=== PATIENT | female | born 1965 | race Caucasian/White ===

== ENCOUNTER 2023-05-19 09:55 | Emergency (ER) | payer OTHER, SELFPAY ==
[2023-05-19 09:59] VITALS: BP 160/97; PULSE 61; RESP 16; TEMP 36.6; O2SAT 98; BMI 21.9
[2023-05-19 10:03] VITALS: O2SAT 98
--- NOTE | 2023-05-19 10:06 | ECG_ITS ---
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
--- NOTE | 2023-05-19 10:06 | XR_ITS ---
The [address] [address] Patient Name: VEENA BUENO MRN: [id number] date: 1965 Sex: F Assigned Patient Location: ER Current Patient Location: ER Accession/Order Number: [id number] Exam Date: 05/19/2023 10:30 Report Date: 05/19/2023 10:45 At the request of: JULI MUKHERJEE Procedure: XR chest 1V EXAM: XR chest 1V HISTORY: CP, cough COMPARISON: CT PE chest study dated 08/25/2009 TECHNIQUE: AP view of the chest was obtained with portable technique at 10:27 AM. FINDINGS: Heart and mediastinal contours are unremarkable in appearance. No acute infiltrate or consolidations are seen. No obvious pneumothorax. Mild apical pleural thickening bilaterally. Postoperative sutures at the right apical level. Bony structures appear grossly intact. XR/XR chest 1V IMPRESSION: No acute process seen in the chest. Electronically authenticated by: NATALI ANDRE Date: 05/19/2023 10:45
--- NOTE | 2023-05-19 10:07 | ED_ITS ---
HPI - Chest Pain General Chief Complaint: Chest Pain Stated Complaint: UPPER EXTREMITY PAIN L SIDE Time Seen by Provider: 05/19/23 09:58 Source: patient Mode of arrival: walk-in Limitations: no limitations History of Present Illness HPI narrative: 58-year-old female presents for pain in the left lateral chest area. She has had this for 3 days. She has been sick for about 6 weeks and has been coughing and coughing up some thick phlegm. No hemoptysis or injury or unusual activity. Certain positions make it worse. Related Data Home Medications Medication Instructions Recorded Confirmed metoprolol succinate 50 mg 50 mg PO DAILY 05/19/23 05/19/23 tablet,extended release 24 hr Previous Rx's Medication Instructions Recorded acetaminophen 300 mg-codeine 30 mg 1 tab PO Q6H PRN pain 5 days #20 05/19/23 tablet tabs ibuprofen 800 mg tablet 800 mg PO Q8H PRN pain #20 tabs 05/19/23 Allergies Allergy/AdvReac Type Severity Reaction Status Date / Time No Known Drug Allergies Allergy Verified 05/19/23 09:59 Review of Systems ROS Narrative A ten point review of systems is negative except as noted above. PFSH PFSH Social History Smoking status: Heavy tobacco smoker Exam Narrative Exam Narrative: Nurses note and vital signs reviewed and patient is not hypoxic. General: The patient appears well and in no apparent distress. Patient is resting comfortably on cart. Skin: Warm, dry, no pallor noted. There is no rash noted. Head: Normocephalic, atraumatic Eye: Normal conjunctiva, no drainage Ears, Nose, Mouth, and Throat: oral mucosa is moist. Nares patent. Cardiovascular: Regular Rate and Rhythm Respiratory: Patient is in no distress, no accessory muscle use, lungs are clear to auscultation, breath sounds are equal without rhonchi. She has palpable tenderness to the lateral chest just below the axilla. There is no crepitus present. Back: non-tender GI: Normal bowel sounds, no tenderness to palpation, no masses appreciated. No rebound, guarding, or rigidity noted. Musculoskeletal: The patient has no evidence of calf tenderness, no pitting edema, symmetrical pulses noted bilaterally Neurological: A&O x4, normal speech Psychiatric: Cooperative Constitutional Vital Signs, click to edit/add: Last Vital Signs Temp 97.9 F 05/19/23 09:59 Pulse 49 L 05/19/23 10:56 Resp 14 05/19/23 10:56 BP 151/86 H 05/19/23 10:56 Pulse Ox 98 05/19/23 10:56 O2 Del Method Room Air 05/19/23 10:03 Course Vital Signs Vital signs: Vital Signs Temperature 97.9 F 05/19/23 09:59 Pulse Rate 61 05/19/23 09:59 Respiratory Rate 16 05/19/23 09:59 Blood Pressure 160/97 H 05/19/23 09:59 Pulse Oximetry 98 05/19/23 09:59 Temperature 97.9 F 05/19/23 09:59 Pulse Rate 49 L 05/19/23 10:56 Respiratory Rate 14 05/19/23 10:56 Blood Pressure 151/86 H 05/19/23 10:56 Pulse Oximetry 98 05/19/23 10:56 Oxygen Delivery Method Room Air 05/19/23 10:03 MDM - Chest Pain MDM Narrative Medical decision making narrative: Her workup is negative. No evidence of PE, heart disease, pneumothorax, pleural effusion, pneumonia. She will be treated symptomatically. Treatment diagnosis and follow-up were discussed with patient. Differential Diagnosis Differential diagnosis: Likely fracture of rib, pneumothorax, unstable angina pectoris, atypical chest pain, st elevation myocardial infarction, costochondritis, chest pain and other (Pleural effusion, pneumonia) Lab Data Attestation: I reviewed the patient's lab results. Labs: Lab Results 05/19/23 Range/Units 10:20 WBC 8.1 (4.0-11.0) 10^3/uL RBC 4.78 (4.20-5.40) 10^6/uL Hgb 13.5 (12.0-16.0) g/dL Hct 41.3 (36.0-48.0) % MCV 86.4 (81.0-99.0) fL MCH 28.2 (26.7-34.0) pg MCHC 32.7 (29.9-35.2) g/dL RDW 12.2 (11.0-15.0) % Plt Count 244 (150-450) 10^3/uL MPV 10.7 (9.5-13.5) fL Neut % (Auto) 67.9 (43.0-75.0) % Lymph % (Auto) 22.9 (20.5-60.0) % [place] % (Auto) 5.6 (1.7-12.0) % Eos % (Auto) 2.2 (0.9-7.0) % Baso % (Auto) 1.0 (0.2-2.0) % Neut # (Auto) 5.5 (1.4-6.5) 10^3/uL Lymph # (Auto) 1.9 (1.2-3.8) 10^3/uL [place] # (Auto) 0.5 (0.3-0.8) 10^3/uL Eos # (Auto) 0.2 (0.0-0.7) 10^3/uL Baso # (Auto) 0.1 (0.0-0.1) 10^3/uL Abs Immat Gran (auto) 0.03 (0.00-0.03) 10^3/uL Imm/Tot Granulo (auto) 0.4 (0.0-0.5) % D-Dimer 0.32 (<=0.59) mg/L FEU Sodium 141 (136-145) mmol/L Potassium 4.2 (3.5-5.1) mmol/L Chloride 106 (98-107) mmol/L Carbon Dioxide 27.1 (21.0-32.0) mmol/L Anion Gap 12.1 BUN 13.0 (7.0-18.0) mg/dL Creatinine 0.91 (0.55-1.02) mg/dL Est GFR ( Amer) >60 (>=60) Est GFR (Non-Af Amer) >60 (>=60) BUN/Creatinine Ratio 14.3 Glucose 109 H (74-106) mg/dL Calcium 8.8 (8.5-10.1) mg/dL Troponin I High Sens 39.2 (4.0-51.3) pg/mL Influenza Type A Ag Negative Influenza Type B Ag Negative SARS-CoV-2 Ag (CV2AG) Negative (NEGATIVE) Imaging Data Chest x-ray: Radiologist's impression: ITS Impressions Chest X-Ray 05/19/23 10:06 IMPRESSION: No acute process seen in the chest. Electronically authenticated by: NATALI ANDRE Date: 05/19/2023 10:45 ECG Data Attestation: I personally reviewed and interpreted this ECG as follows: (EKG on my interpretation shows normal sinus rhythm without acute change and a rate of 55.) Heart Score History: Slightly/Non-Suspicious ECG: Normal Age: >45-<65 years Risk Factors: No Risk Factors Troponin: <Normal Limit Total Heart Score Recommendations & Risks:: 1 Discharge Plan Discharge Chief Complaint: Chest Pain Clinical Impression: Chest wall pain Patient Disposition: Home, Self-Care Time of Disposition Decision: 11:45 Condition: Good Mode of Transportation: Private Vehicle Prescriptions / Home Meds: New acetaminophen-codeine 300-30 mg tablet 1 tab PO Q6H PRN (Reason: pain) 5 Days Qty: 20 0RF ibuprofen 800 mg tablet 800 mg PO Q8H PRN (Reason: pain) Qty: 20 0RF No Action metoprolol succinate 50 mg tablet extended release 24 hr 50 mg PO DAILY Instructions: Chest Wall Pain (ED) Stand Alone Forms: Portal Instructions Referrals: NAVDEEP GERARD [Primary Care Provider] - 1 week
[2023-05-19 10:39] LABS: Basophils Absolute Auto 0.1 10^3/uL (0.0-0.1); Eosinophils Absolute Auto 0.2 10^3/uL (0.0-0.7); Eosinophils Percent Auto 2.2 % (0.9-7.0); Hematocrit 41.3 % (36.0-48.0); Hemoglobin 13.5 g/dL (12.0-16.0); Immature Granulocytes Abs Auto 0.03 10^3/uL (0.00-0.03); Immature Granulocytes Pct Auto 0.4 % (0.0-0.5); Lymphocytes Absolute Auto 1.9 10^3/uL (1.2-3.8); Lymphocytes Percent Auto 22.9 % (20.5-60.0); Mean Corpuscular HGB Conc 32.7 g/dL (29.9-35.2); Mean Corpuscular Hemoglobin 28.2 pg (26.7-34.0); Mean Corpuscular Volume 86.4 fL (81.0-99.0); Mean Platelet Volume 10.7 fL (9.5-13.5); Monocytes Absolute Auto 0.5 10^3/uL (0.3-0.8); Monocytes Percent Auto 5.6 % (1.7-12.0); Neutrophils Absolute Auto 5.5 10^3/uL (1.4-6.5); Neutrophils Percent Auto 67.9 % (43.0-75.0); Platelet Count 244 10^3/uL (150-450); Red Blood Count 4.78 10^6/uL (4.20-5.40); Red Cell Distribution Width 12.2 % (11.0-15.0); White Blood Count 8.1 10^3/uL (4.0-11.0)
[2023-05-19 10:43] LABS: Influenza Virus A Antigen Negative; Influenza Virus B Antigen Negative; Internal Control Within Normal Limits
[2023-05-19 10:44] LABS: SARS-CoV-2 Ag NEGATIVE (NEGATIVE)
[2023-05-19 10:55] LABS: D Dimer 0.32 mg/L FEU (<=0.59)
[2023-05-19 10:56] VITALS: BP 151/86; PULSE 49; RESP 14; O2SAT 98
[2023-05-19 11:16] LABS: Anion Gap 12.1; BUN Creatinine Ratio 14.3; Calcium 8.8 mg/dL (8.5-10.1); Carbon Dioxide 27.1 mmol/L (21.0-32.0); Chloride 106 mmol/L (98-107); Estimated GFR (African America >60 (>=60); Estimated GFR (Non-African Ame >60 (>=60); Glucose 109 mg/dL (74-106); Potassium 4.2 mmol/L (3.5-5.1); Sodium 141 mmol/L (136-145); Troponin I High Sensitivity 39.2 pg/mL (4.0-51.3)
[2023-05-19] MEDS: KETOROLAC TROMETHAMINE 60 MG/2 ML VIAL IM (11:42)
== END 2023-05-19 11:57 | disposition home or self-care (01) ==
PROVIDERS: Emergency Provider Emergency Medicine; PCP Family Medicine
DX: R07.89 Other chest pain (principal); F17.210 Nicotine dependence, cigarettes, uncomplicated; Z20.822 Contact with and (suspected) exposure to COVID-19
CPT/HCPCS: 36415; 71045; 80048; 84484; 85025; 85378; 87804; 87811; 93005; 96372; 99285; J1885

== ENCOUNTER 2024-04-23 13:22 | Emergency (ER) | payer OTHER, SELFPAY ==
[2024-04-23 13:34] VITALS: BP 155/82; PULSE 60; TEMP 36.9; O2SAT 99; BMI 20.3
--- OUTSIDE RECORDS SUMMARY | 2024-04-23 13:42 | XMS_ITS | CCD ---
Author Organization [facility] Care Team Providers Care Jewel Staker Name Role Phone KIRNUS, DINORA Unavailable Unavailable NO FAMILY DOCTOR, DO NOT USE Unavailable Zuleika vailable KIRNUS, DINORA Unavailable Unavailable NO FAMILY DOCTOR, DO NOT USE Unavailable Zuleika vailable Jasmin Zayas Unavailable Unavailable Jasmin Zayas Unavailable Unavailable FURLONG, DR JHON Christopher Attending Unavailable FURLONG, DR JHON Christopher Consulting Unavailable FURLONG, DR JHON Christopher Primary Care Unavailable FURLONG, DR JHON Christopher Admitting Unavailable JHON ROSAS Attending Unavailab le NAELLOJHON HERRON Primary Care Unavailab Araceli Rolle Unavailable Cindy Avila Unavailable Jhon Rosas DO Primary Care Provider SHARA STAPLETON Attending Unavailable JHON ROSAS Referring Unavailable JHON ROSAS Primary Care Unavailable SHAYLA OH Attending Unavailable JHON ROSAS Referring Unavailable JHON ROSAS Primary Care Unavailable Medications Current Medications Medication Drug Class(es) Dates Sig (Normalized) Sig (Original) Cortisporin Otic 1%-0.35%-1000 units/ml (1 source) Start: 1 Cortisporin Otic 1%-0.35%-1000 units/ml 3 drops right ear tid for 7 days Jan, Active hydroCHLOROthiazide (2 sources) Thiazide Diuretic hydroCHLOROthiazide Active ibuprofen 800 mg oral tablet (6 sources) Nonsteroidal Anti-inflammator y Drug Start: 4 take 1 tablet by mouth every eight hours for pain ibuprofen (MOTRIN) 800 mg tablet take 1 tablet by mouth every 8 hours if needed for pain 05/19/2023 Active Lisinopril (2 sources) Angiotensin Converting Enzyme Inhibitor Lisinopril Active Meclizine (2 sources) Antiemetic Meclizine HCl Ac tive 24 hr metoprolol succinate 50 mg extended release oral tablet (7 sources) beta-Adrenergic Christiano Start: End: take 1 tablet by mouth once daily in the morning metoprolol succinate XL (TOPROL XL) 50 mg 24 hr tablet TAKE 1 TABLET BY MOUTH EVERY MORNING 30 tablet 03/29/2024 Active Start: 11-11-2022 take 1 tablet by tad th once daily metoprolol succinate XL (TOPROL XL) 50 mg 24 hr tablet take 1 tablet by mouth once daily 90 tablet 1 11/11/2022 Active ondansetron 4 mg disintegrating oral tablet (2 sources) Serotonin-3 Receptor Antagonist Start: 04-09-2024 take 1 tablet by mouth every eight hours as needed for nausea and vomiting ondansetron ODT (ZOFRAN ODT) 4 mg disintegrating tablet Dissolve 1 tablet (4 mg total) on tongue every 8 (eight) hours as needed for nausea or vomiting. 20 tablet 04/09/2024 Active oseltamivir 75 mg oral capsule (2 sources) Neuraminidase Inhibitor Start: 04-09-2024 End: 04-14-2024 take 1 capsule by mouth in the morning, then take 1 capsule by mouth at bedtime oseltamivir (TAMIFLU) 75 mg capsule Take 1 capsule (75 mg total) by mouth in the morning and 1 capsule (75 mg total) before bedtime. Do all this for 5 days. 10 capsule 04/09/2024 04/14/2024 Active Penicillin (1 source) Start: 10-05-2021 take 1 tablet by mouth every six hours Penicillin VK 500mg 500mg take 1 tablet Oral every 6 hours for 10 days Sep, Active valACYclovir 1000 mg oral tablet (2 sources) Herpesvirus Nucleoside Analog DNA Polymerase Inhibitor, Herpes Simplex Virus Nucleoside Analog DNA Polymerase Inhibitor, Herpes Zoster Virus Nucleoside Analog DNA Polymerase Inhibitor Start: 05-21-2023 End: 05-31-2023 take 1 tablet by mouth three times daily valACYclovir (VALTREX) 1000 mg tablet Take 1 tablet (1,000 mg total) by mouth 3 (three) times a day for 10 days. 30 tablet 0 05/21/2023 05/31/2023 Active Completed/Discontinued Medications Medication Drug Class(es) Dates Sig (Normalized) Sig (Original) acetaminophen 300 mg / codeine phosphate 30 mg oral tablet (5 sources) Opioid Agonist Start: 05-19-2023 End: 04-09-2024 take 1 tablet by mouth every six hours for pain acetaminophen-cod eine (TYLENOL #3) 300-30 mg per tablet take 1 tablet by mouth every 6 hours if needed for pain for 5 days 05/19/2023 04/09/2024 Discontinued (Therapy completed) famotidine 20 mg oral tablet (5 sources) Histamine-2 Receptor Antagonist Start: 08-08-2022 End: 04-09-2024 take 1 tablet by mouth in the morning famotidine (PEPCID) 20 mg tablet take 1 tablet by mouth IN THE MORNING and 1 tablet BEFORE BEDTIME 60 tablet 1 08/08/2022 04/09/2024 Discontinued (Therapy completed) fluticasone propionate 0.05 mg/actuat metered dose nasal spray (6 sources) Corticosteroid Start: 06-13-2022 End: 04-09-2024 take 1 spray(s) nasal route in the morning fluticasone propionate (FLONASE) 50 mcg/actuation nasal spray Administer 1 spray into each nostril in the morning. 9.9 mL 1 06/13/2022 04/09/2024 Discontinued (Therapy completed) Start: 02-09-2021 take 2 spray(s) nasa l route once daily FLONASE 50 mcg 2 sprays nasally qd Jan, Active predniSONE 20 mg oral tablet (6 sources) Start: 05-21-2023 End: 04-09-2024 predniSONE (DELTASONE) 20 mg tablet Use twice daily for 5 days and then once daily for 5 days 15 tablet 05/21/2023 04/09/2024 Discontinued (Therapy completed) Start: 02-09-2021 take 1 tablet by tad th every twelve hours predniSONE 20 MG 1 tablet Orally bid for 5 day(s) Jan, Active Problems Active Problems Problem Classification Problem Date Documented Date Episodic/Chronic Essential hypertension (6 sources) Hypertensive disorder; Translations: [Essential (primary) hypertension] 08-29-2022 Chronic Essential hypertension (1 source) Essential hypertension Onset: 01-15-2017 Fever of unknown origin (2 sources) Fever; Translations: [Fever, unspecified] Onset: 04-09-2024 04-09-2024 Episodic Influenza (2 sources) Influenza due to Influenza A virus; Translations: [Influenza due to other identified influenza virus with other respiratory manifestations] Onset: 04-09-2024 04-09-2024 Episodic Joint disorders and dislocations; trauma-related (6 sources) Chondromalacia of patella; Translations: [Chondromalacia patellae, unspecified knee] Onset: 06-27-2010 05-02-2022 Chronic Other screening for suspected conditions (not mental disorders or infectious disease) (1 source) Patient encounter status; Translations: [Encounter for screening mammogram for malignant neoplasm of breast] 04-12-2024 Episodic Other upper respiratory infections (1 source) Acute upper respiratory infection, unspecified; Translations: [ACUTE UP RESPIRATORY INFECTION UNS] Onset: 04-25-2021 Episodic Substance-related disorders (8 sources) Smoker; Translations: [Nicotine dependence, unspecified, uncomplicated] Onset: 05-02-2022 05-02-2022 Chronic Unclassified (2 sources) Chest pain, unspecified / R07.9(ICD-9) Onset: 01-15-2017 Unclassified (1 source) Family hx of ischem heart dis and oth dis of the circ sys / Z82.49(ICD-9) Onset: 12-18-2016 Unclassified (1 source) Nicotine dependence, unspecified, uncomplicated / F17.200(ICD-9) Onset: 12-18-2016 Unclassified (2 sources) CONTACT W/AND (SUSP) EXPOS COVID-19; Translations: [CONTACT W/AND (SUSP) EXPOS COVID-19] Onset: 04-25-2021 Unclassified (1 source) Sinus Problem Onset: 04-09-2024 Viral infection (1 source) COVID-19; Translations: [COVID-19] Onset: 04-25-2021 Past or Other Problems Problem Classification Problem Date Documented Date Episodic/Chronic Disorders of teeth and jaw (1 source) Periapical abscess without sinus Onset: 10-05-2021 Resolved: 10-05-2021 Episodic Joint disorders and dislocations; trauma-related (6 sources) Tear of lateral meniscus of knee; Translations: [Other tear of lateral meniscus, current injury, unspecified knee, initial encounter] Onset: 06-27-2010 05-02-2022 Episodic Mood disorders (6 sources) Mood disorders Onset: 05-21-2023 Resolved: 04-09-2024 05-21-2023 Nonspecific chest pain (4 sources) Chest pain, unspecified; Translations: [Chest wall pain] Onset: 01-15-2017 05-21-2023 Episodic Other connective tissue disease (6 sources) Patellar tendonitis; Translations: [Patellar tendinitis, unspecified knee] Onset: 06-13-2010 05-02-2022 Episodic Other ear and sense organ disorders (1 source) Unspecified acute noninfective otitis externa, right ear; Translations: [Acute otitis externa of right ear, unspecified type H60.501] Onset: 02-09-2021 Resolved: 02-09-2021 Episodic Otitis media and related conditions (1 source) Unspecified nonsuppurative otitis media, right ear; Translations: [Right otitis media with effusion H65.91] Onset: 02-09-2021 Resolved: 02-09-2021 Episodic Unclassified (1 source) CONTACT W/AND (SUSP) EXPOS COVID-19; Translations: [CONTACT W/AND (SUSP) EXPOS COVID-19] Onset: 04-19-2021 Unclassified (6 sources) Onset: 06-07-2022 06-07-2022 Viral infection (2 sources) Herpes zoster with complication; Translations: [Zoster with other complications] Onset: 05-21-2023 05-21-2023 Episodic Results Test Name Value Interpretation Reference Range Facility POCT Influenza A/Influenza B /SARS-COV-2 Veritor[facility] 04-09-2024 External Poct Influenza A Antigen Positive [facility] External Poct Influenza B Antigen Negative [facility] SARS-CoV-2 (COVID-19) Ag IA.rapid Ql (Resp) Negative [facility] COMPREHENSIVE METABOLIC PANE Seven 07-13-2021 Albumin [Mass/Vol] 4.5 g/dL Normal 3.6-5.1 [facility] Comment on above: Performed By: #### 1 3829, 0032 #### [facility] [address], [address] [place] [address] Fan Mail Clerk: Clarence Burnett MD Albumin/Globulin [Mass ratio] 1.8 {ratio} Normal 1.0-2.5 [facility] Comment on above: Performed By: #### 1 0231, 7600 #### [facility] of [place] [address] Fan Mail Clerk: Clarence Burnett MD ALP [Catalytic activity/Vol] 96 U/L Normal 37-153 [facility] Comment on above: Performed By: #### 1 0231, 7600 #### [facility] of [place] [address] Fan Mail Clerk: Clarence Burnett MD ALT [Catalytic activity/Vol] 9 U/L Normal 6-29 [facility] Comment on above: Performed By: #### 1 023, 7600 #### [facility] of [place] [address] Fan Mail Clerk: Clarence Burnett MD AST [Catalytic activity/Vol] 12 U/L Normal 10-35 [facility] Comment on above: Performed By: #### 1 023, 7600 #### [facility] of [place] [address] Fan Mail Clerk: Clarence Burnett MD Bilirubin [Mass/Vol] 0.2 mg/dL Normal 0.2-1.2 [facility] Comment on above: Performed By: #### 1 0231, 7600 #### [facility] [place] [address] Fan Mail Clerk: Clarence Burnett MD BUN/CREATININE RATIO NOT APPLICABLE Normal 6-22 [facility] Comment on above: Performed By: #### 1 0231, 7600 #### [facility] [place] [address] Fan Mail Clerk: Clarence Burnett MD Calcium [Mass/Vol] 9.6 mg/dL Normal 8.6-10.4 [facility] Comment on above: Performed By: #### 1 0231, 7600 #### [facility] of [address], [address] [place] [address] Fan Mail Clerk: Clarence Burnett MD Chloride [Moles/Vol] 99 mmol/L Normal 98-110 [facility] Comment on above: Performed By: #### 1 023, 7600 #### [facility] [address], [address] [place] [address] Fan Mail Clerk: Clarence Burnett MD CO2 [Moles/Vol] 33 mmol/L High 20-32 [facility] Comment on above: Performed By: #### 1 023, 7600 #### [facility] [place] [address] Fan Mail Clerk: Clarence Burnett MD Creatinine [Mass/Vol] 0.76 mg/dL Normal 0.50-1.05 [facility] Comment on above: Result Comment: For patients >49 years of age, the reference limit for Creatinine is approximately 13% higher for people identified as -Albanian. Performed By: #### 1 230, 7600 #### [facility] of [address], [address] [place] [address] Fan Mail Clerk: Clarence Burnett MD eGFR NON-AFR. COSTA RICAN 88 mL/min/1.73m2 Normal > OR = 60 [facility] Comment on above: Performed By: #### 1 230, 7600 #### [facility] [place] [address] Fan Mail Clerk: Clarence Burnett MD GFR/1.73 sq M.predicted among blacks MDRD (S/P/Bld) [Vol rate/Area] 102 mL/min/{1.73_m2} Normal > OR = 60 [facility] Comment on above: Performed By: #### 1 023, 7600 #### [facility] [place] [address] Fan Mail Clerk: Clarence Burnett MD Globulin (S) [Mass/Vol] 2.5 g/dL Normal 1.9-3.7 [facility] Comment on above: Performed By: #### 1 023, 7600 #### [facility] of [address], [address] [place] [address] Fan Mail Clerk: Clarence Burnett MD Glucose [Mass/Vol] 77 mg/dL Normal 65-139 [facility] Comment on above: Result Comment: Non-fasting reference interval Performed By: #### 1 0231, 7600 #### [facility] of [address], [address] [place] [address] Fan Mail Clerk: Clarence Burnett MD Potassium [Moles/Vol] 3.2 mmol/L Low 3.5-5.3 [facility] Comment on above: Performed By: #### 1 0231, 7600 #### [facility] of [place] [address] Fan Mail Clerk: Clarence Burnett MD Protein [Mass/Vol] 7.0 g/dL Normal 6.1-8.1 [facility] Comment on above: Performed By: #### 1 023, 7600 #### [facility] of [place] [address] Fan Mail Clerk: Clarence Burnett MD Sodium [Moles/Vol] 138 mmol/L Normal 135-146 [facility] Comment on above: Performed By: #### 1 0231, 7600 #### [facility] of [place] [address] Fan Mail Clerk: Clarence Burnett MD Urea nitrogen [Mass/Vol] 16 mg/dL Normal 7-25 [facility] Comment on above: Performed By: #### 1 0231, 7600 #### [facility] of [place] [address] Fan Mail Clerk: Clarence Burnett MD LIPID PANEL, [facility] Cholesterol [Mass/Vol] 226 mg/dL High <200 [facility] Comment on above: Order Comment: FASTI NG:NO FASTING: NO Performed By: #### 1 0231, 7600 #### [facility] of [place] [address] Fan Mail Clerk: Clarence Burnett MD Cholesterol in HDL [Mass/Vol] 52 mg/dL Normal > OR = 50 [facility] Comment on above: Order Comment: FASTI NG:NO FASTING: NO Performed By: #### 1 0231, 7600 #### [facility] [address], [address] [place] [address] Fan Mail Clerk: Clarence Burnett MD Cholesterol in LDL [Mass/Vol] 123 mg/dL High [facility] Comment on above: Order Comment: FASTI NG:NO FASTING: NO Result Comment: Refe rence range: <100 Desirable range <100 mg/dL for primary prevention; <70 mg/dL for patients with CHD or diabetic patients with > or = 2 CHD risk factors. LDL-C is now calculated using the Saba calculation, which is a validated novel method providing better accuracy than the Friedewald equation in the estimation of LDL-C. Suman TYSON et al. AMADO. 2013;310(19): 1023-4945 (http://education.[employer].Daily Dealy/faq/CBS463) Performed By: #### 1 023, 0 #### [facility] [address], [address] [place] [address] Fan Mail Clerk: Clarence Burnett MD Cholesterol.total/ Cholesterol in HDL [Mass ratio] 4.3 {ratio} Normal <5.0 [facility] Comment on above: Order Comment: FASTI NG:NO FASTING: NO Performed By: #### 1 023, 0 #### [facility] [address], [address] [place] [address] Fan Mail Clerk: Clarence Burnett MD NON HDL CHOLESTEROL 174 mg/dL (calc) High <130 [facility] Comment on above: Order Comment: FASTI NG:NO FASTING: NO Result Comment: For patients with diabetes plus 1 major ASCVD risk factor, treating to a non-HDL-C goal of <100 mg/dL (LDL-C of <70 mg/dL) is considered a therapeutic option. Performed By: #### 1 0231, 8670 #### [facility] [address], [address] [place] [address] Fan Mail Clerk: Clarence Burnett MD Triglyceride [Mass/Vol] 354 mg/dL High <150 [facility] Comment on above: Order Comment: FASTI NG:NO FASTING: NO Result Comment: If a non-fasting specimen was collected, consider repeat triglyceride testing on a fasting specimen if clinically indicated. Huber et al. J. of Clin. Lipidol. 2015;9:129-169. Performed By: #### 1 0231, 7600 #### [facility] [address] [place] [address], [address] [place] [address] Fan Mail Clerk: Clarence Burnett MD CoV-2 PCRon 06-01-2021 Employed in healthcare? Unknown Normal [facility] [place] Comment on above: Performed By: #### C [id number] #### [place] [address] Group care resident? Unknown Normal [facility] [place] Comment on above: Performed By: #### C [id number] #### [address] [address] In ICU? Unknown Normal [facility] [place] Comment on above: Performed By: #### C [id number] #### [address] [address] status? Unknown Normal [facility] Comment on above: Performed By: #### C [id number] #### [address] [address] SARS-CoV-2 (COVID-19) RNA HA+probe Ql (Unsp spec) Negative Normal Negative [facility] [place] Comment on above: Result Comment: The 2019 novel coronavirus SARS-CoV-2 target nucleic acids are not detected. The NALDO? SARS-CoV-2 Assay is a qualitative, multiplex, real-time PCR-based in vitro diagnostic test intended for the detection of SARS-CoV-2 nucleic acid in nasopharyngeal swab ([employer] TE[employer] TEACHER) specimens from individuals suspected of having COVID-19. The NALDO? SARS-CoV-2 Assay detects SARS-CoV-2 viral RNA from nasopharyngeal swab ([employer]DLE S[employer]OL TECHNOLOGY TEACHER) samples. SARS-CoV-2 RNA is generally detectable in MIDDLE [employer] TECHN[employer]Y TEACHER specimens during the acute phase of infection. Positive results are indicative of the presence of SARS-CoV-2 RNA; clinical correlation with patient history and other diagnostic information is necessary to determine patient infection status. Positive results do not rule out bacterial infection or co-infection with other viruses. The agent detected may not be the definite cause of disease. Laboratories within the [facility] and its territories are required to report all positive results to the appropriate public health authorities. Negative results do not preclude SARS-CoV-2 infection and should not be used as the sole basis for patient management decisions. Negative results must be combined with clinical observations, patient history, and epidemiological information. The [employer] SARS-CoV-2 Assay is intended for use on [employer] by trained clinical laboratory personnel who are specifically instructed and trained in in vitro diagnostic procedures. This [email or web address] SARS-CoV-2 Assay has been modified from the auxiliary equipment tender?s instructions to allow for nasal swab (anterior Nares) collection. An independent bridging study for nasal swab collection was performed by [facility], a [place] laboratory certified to perform high complexity testing EUA - In Vitro Diagnostic Use Under Emergency Use Authorization. This test has not been FDA cleared or approved. This test has been authorized by the FDA under an EUA for use by authorized laboratories. This test has been authorized only for the detection of nucleic acid from SARS-CoV-2, not for any other viruses or pathogens. This test is only authorized for the duration of the declaration that circumstances exist justifying the authorization of emergency use of in vitro diagnostic tests for detection and/or diagnosis of COVID-19 under Section 564(b) (1) of the Act, 21 U.S.C. ?360bb-3(b)(1), unless the authorization is terminated or revoked sooner. Fact sheet for Health Care Providers: https://www.fda.gov/media/490011/download Fact sheet for Patients: https://www.fda.gov/media/504012/download Performed By: #### C [id number] #### [address] [address] SARS-CoV-2 (COVID-19) RNA HA+probe Ql (Unsp spec) Unknown Normal [facility] [place] Comment on above: Performed By: #### C [id number] #### [facility] [address] [place] [address] Symptomatic as defined by CDC? Unknown Normal [facility] [place] Comment on above: Performed By: #### C [id number] #### [facility] [address] [place] [address] [facility]on SARS-CoV-2 (COVID-19) RNA HA+probe Ql (Unsp spec) Detected Critically abnormal NOT DETECTED [facility] Comment on above: Result Comment: This test is not yet approved or cleared by the [place] FDA. When there are no FDA-approved or cleared tests available, and other criteria are met, FDA can make tests available under an emergency access mechanism called an Emergency Use Authorization (EUA). The EUA for this test is supported by the [place] of Health and Human Service's (HHS's) declaration that circumstances exist to justify the emergency use of in vitro diagnostics for the detection and/or diagnosis of the virus that causes COVID-19. This EUA will remain in effect (meaning this test can be used) for the duration of the COVID-19 declaration justifying emergency of IVDs, unless it is terminated or revoked by FDA (after which the test may no longer be used). Performed By: #### [facility] #### [facility] [address] [place], [place] [address] Dr. Lashay Nesbitt TSH W/REFLEX TO FT4on 2020 TSH W/REFLEX TO FT4 1.12 mIU/L Normal [facility] Comment on above: Result Comment: Refe rence Range > or = 20 Years 0.40-4.50 Ranges First trimester 0.26-2.66 Second trimester 0.55-2.73 Third trimester 0.43-2.91 Performed By: #### 3 6127 #### [facility] [address], [address] [place] [address] Fan Mail Clerk: Clarence Burnett MD Creatinineon 01-15-2017 Creatinine 0.86 mg/dL Normal 0.50-1.05 [facility] Comment on above: Performed By: #### 1 [id number] ####[facility] [address] [place] [address] eGFR (MDRD) mL/min/{1.73_m2} Normal [facility] Comment on above: Result Comment: Inte rpretation for Chronic Kidney Disease:Stages 1&2 >60 Healthy or potential kidney damage.Mild decrease of GFR.Stage 3 30-59 Moderate decrease of GFR.Stage 4 15-29 Severe decrease of GFR.Stage 5 <15 Kidney failure or on dialysis. Performed By: #### 1 [id number] ####[facility] [address] [place] [address] Electrolyte Panelon 01-16-20 17 Anion gap 14 mmol/L Normal 10-20 [facility] Comment on above: Performed By: #### 1 [id number] ####[facility] [address] [place] [address] Bicarbonate (HCO3) 30 mmol/L Normal 21-32 [facility] Comment on above: Performed By: #### 1 [id number] ####[facility] [address] [place] [address] Chloride 98 mmol/L Normal 98-107 [facility] Comment on above: Performed By: #### 1 [id number] ####[facility] [address] [facility] [place] [address] Potassium molar conc 3.6 mmol/L Normal 3.5-5.1 [facility] Comment on above: Performed By: #### 1 [id number] ####[facility] [address] [place] [address] Sodium 138 mmol/L Normal 136-145 [facility] Comment on above: Performed By: #### 1 [id number] ####[facility] [address] [place] [address] Urea Nitrogenon 01-15-2017 Urea nitrogen 16 mg/dL Normal 6-23 [facility] are Comment on above: Performed By: #### 1 [id number] ####[facility] [address] [facility] [place] [address] Vital Signs Date Time Vital Sign Value Performing Clinician Facility 04-09-2024 11:52-0500 Body height 157.5 cm Shara Stapleton ASSISTANCE COORDINATOR-DESIGN ENGINEER [employer]GR[employer]URAL EQUIPMENT Work Phone: [facility] 04-09-2024 11:52-0500 Body mass index (BMI) [Ratio] 20.43 kg/m2 Shara Stapleton ASSISTANCE COORDINATOR-DESIGN ENGINEER [employer]QUIPMENT Work Phone: [facility] 04-09-2024 11:52-0500 Body temperature 99.7 [degF] Shara Stapleton ASSISTANCE COORDINATOR-DESIGN ENGINEER [employer] EQUIPMENT Work Phone: [facility] 04-09-2024 11:52-0500 Body weight 50.67 kg Shara Stapleton ASSISTANCE COORDINATOR-DESIGN ENGINEER [employer]QUIPMENT Work Phone: [facility] 04-09-2024 11:52-0500 Diastolic blood pressure 56 mm[Hg] Shara Stapleton ASSISTANCE COORDINATOR-DESIGN ENGINEER [employer] EQUIPMENT Work Phone: [facility] 04-09-2024 11:52-0500 Heart rate 74 /min Shara Stapleton APRN-DESIGN ENGINEER AGRICULTURAL EQUIPMENT Work Phone: [facility] 04-09-2024 11:52-0500 Respiratory rate 18 /min Shara Stapleton ASSISTANCE COORDINATOR-DESIGN ENGINEER AGRICULTURAL EQUIPMENT Work Phone: [facility] 04-09-2024 11:52-0500 SaO2% (BldA) [Mass fraction] 96 % Shara Stapleton ASSISTANCE COORDINATOR-DESIGN ENGINEER AGRICULTURAL EQUIPMENT Work Phone: [facility] 04-09-2024 11:52-0500 Systolic blood pressure 126 mm[Hg] Shara Stapleton ASSISTANCE COORDINATOR-DESIGN ENGINEER AGRICULTURAL EQUIPMENT Work Phone: [facility] 05-21-2023 12:02-0500 Body height 157.5 cm Shayla Ho APRN-MOLD MECHANIC Work Phone: [facility] 05-21-2023 12:02-0500 Body mass index (BMI) [Ratio] 21.62 kg/m2 Shayla Ho APRN-MOLD MECHANIC Work Phone: [facility] 05-21-2023 12:02-0500 Body temperature 98.01 [degF] Shayla GIVENSMOLD MECHANIC Work Phone: [facility] 05-21-2023 12:02-0500 Body weight 53.62 kg Shayla GIVENSMOLD MECHANIC Work Phone: [facility] 05-21-2023 12:02-0500 Diastolic blood pressure 70 mm[Hg] Shayla GIVENSMOLD MECHANIC Work Phone: [facility] 05-21-2023 12:02-0500 Heart rate 64 /min Shayla GIVENSMOLD MECHANIC Work Phone: [facility] 05-21-2023 12:02-0500 SaO2% (BldA) [Mass fraction] 96 % Shayla GIVENSMOLD MECHANIC Work Phone: [facility] 05-21-2023 12:02-0500 Systolic blood pressure 118 mm[Hg] Shayla GIVENSMOLD MECHANIC Work Phone: [facility] 10-05-2021 12:00-0400 Body height 157.48 cm Cindy Avila Other [facility] Other 10-05-2021 12:00-0400 Body mass index (BMI) [Ratio] 22.86 kg/m2 Cindy Avila Other [facility] Other 10-05-2021 12:00-0400 Body temperature 98.1 [degF] Cindy Avila Other [facility] Other 10-05-2021 12:00-0400 Body weight 56.7 kg Cindy Avila Other [facility] Other 10-05-2021 12:00-0400 Diastolic blood pressure 68 mm[Hg] Cindy Avila Other [facility] Other 10-05-2021 12:00-0400 Respiratory rate 18 /min Cindy Avila Other [facility] Other 10-05-2021 12:00-0400 SaO2% (BldA) [Mass fraction] 99 % Cindy Avila Other [facility] Other 10-05-2021 12:00-0400 Systolic blood pressure 103 mm[Hg] Cindy Avila Other [facility] Other 02-09-2021 11:15-0400 Body height 157.48 cm Araceli Cashmond Other [facility] Other 02-09-2021 11:15-0400 Body mass index (BMI) [Ratio] 21.03 kg/m2 Araceli Cashmond Other [facility] Other 02-09-2021 11:15-0400 Body temperature 97.2 [degF] Araceli Cashmond Other [facility] Other 02-09-2021 11:15-0400 Body weight 52.16 kg Araceli Mechelle Other [facility] Other 02-09-2021 11:15-0400 Respiratory rate 18 /min Araceli Cashmond Other [facility] Other 02-09-2021 11:15-0400 SaO2% (BldA) [Mass fraction] 97 % Araceli Mechelle Other [facility] Other Encounters Encounter Date Encounter Type Care Provider Facility Start: 04-12-2024 End: 04-12-2024 Orders Only Shara Stapleton ASSISTANCE COORDINATOR-DESIGN ENGINEER AGRICULTURAL EQUIPMENT [facility] Phone: [facility] Comment on above: Encounter for screen ing mammogram for malignant neoplasm of breast (Primary Dx) Start: 04-09-2024 End: 04-09-2024 Office outpatient visit 15 minutes [facility] ASSISTANCE COORDINATOR-DESIGN ENGINEER AGRICULTURAL EQUIPMENT Work Phone: [facility] Comment on above: Influenza A (Primary Dx); Fever, unspecified fever cause; Smoking Start: 04-09-2024 End: 04-09-2024 ambulatory [facility] Start: 03-24-2024 End: 03-29-2024 Refill Jhon Rosas DO Work Phone: [facility] Start: 06-02-2023 Orders Only Shayla Ho ASSISTANCE COORDINATOR-MOLD MECHANIC Work Phone: [facility] Start: 05-27-2023 Orders Only Shayla Ho ASSISTANCE COORDINATOR-MOLD MECHANIC Work Phone: [facility] Start: 05-21-2023 End: 05-21-2023 ambulatory SHAYLA GIVENS [facility] Start: 05-21-2023 End: 05-21-2023 Office outpatient visit 15 minutes Shayla Ho ASSISTANCE COORDINATOR-MOLD MECHANIC Work Phone: [facility] Comment on above: Chest wall pain (Lu shayla Dx); Herpes zoster with complication Start: 10-05-2021 End: 10-05-2021 ambulatory Cindy Avila Other [facility] Other Start: 10-05-2021 Office outpatient vi sit 15 minutes Cindy Avila [facility] Start: 06-01-2021 End: 06-02-2021 ambulatory JHON ROSAS Facility:[facility] Start: 04-19-2021 End: 04-19-[address] JHON ROSAS Facility: Start: 02-09-2021 Office outpatient ne w 20 minutes Araceli Mechelle [facility] Start: 01-15-2017 Ambulatory DINORA MCKOY Facility :[id number] Start: 01-15-2017 Ambulatory Jasmin Son [facility] Facil [id number] Start: 12-18-2016 Ambulatory DINORA MCKOY Facility :[id number] Start: 12-18-2016 Ambulatory Jasmin Son [facility] Facil [id number] Procedures Date Procedure Procedure Detail Performing Clinician Start: 04-09-2024 POCT INFLUENZA A/INF LUENZA B/SARS-COV-2 VERITOR Shara Stapleton ASSISTANCE COORDINATOR-DESIGN ENGINEER AGRICULTURAL EQUIPMENT Work Phone: Start: 04-09-2024 Adult depression scr eening assessment Shara Stapleton ASSISTANCE COORDINATOR-DESIGN ENGINEER AGRICULTURAL EQUIPMENT Work Phone: Start: 05-21-2023 Adult depression scr eening assessment Shayla Ho ASSISTANCE COORDINATOR-MOLD MECHANIC Work Phone: Start: 07-03-2022 Mammography Shayla Ho ASSISTANCE COORDINATOR-MOLD MECHANIC Work Phone: Plan of Treatment Date Care Activity Detail Author Start: 04-09-2025 Adult BMI Screening Adult BMI Screen ing [facility] Start: 04-09-2025 Depression Screening Depression Scre ening [facility] Start: 04-09-2025 Tobacco Screening Tobacco Screening [facility] Start: 05-21-2024 Adult BMI Screening Adult BMI Screen ing [facility] Start: 05-21-2024 Depression Screening Depression Scre ening [facility] Start: 05-21-2024 Tobacco Screening Tobacco Screening [facility] Start: 05-13-2024 End: 05-13-2024 Patient encounter procedure 05/13/2024 1:00 PM EST [facility] Visit [facility] [address] [place] [address] Shara Stapleton, ASSISTANCE COORDINATOR-DESIGN ENGINEER AGRICULTURAL EQUIPMENT [address] [place] [address] [facility] Start: 04-21-2024 End: 04-21-2024 Patient encounter procedure 04/21/2024 2:00 PM EST Appointment [facility] [address] [place] [id number] [facility] Start: 04-12-2024 End: 04-12-2025 DBT Breast - bilateral screening Mammography screening bilateral with CAD Imaging Routine Encounter for screening mammogram for malignant neoplasm of breast Expected: 04/12/2024, Expires: 04/12/2025 [facility] Work Phone: Comment on above: Expected: 04/12/2024 , Expires: 04/12/2025 Start: 12-15-2023 Tobacco Counseling Tobacco Counselin g [facility] Start: 12-14-2023 Influenza vaccination Influenza Vacc ine [facility] Start: 08-30-2023 Administration of varicella zoster vaccine Zoster (Shingles) Vaccine (1 of 2) [facility] Comment on above: Postponed from 02/03 (Patient Refused) Start: 08-30-2023 Adult BMI Screening Adult BMI Screen ing [facility] Start: 08-30-2023 Depression Screening Depression Scre ening [facility] Start: 08-30-2023 DTaP,Tdap and Td Vac cines (1 - Tdap) DTaP,Tdap and Td Vaccines (1 - Tdap) [facility] Comment on above: Postponed from 02/03 (Patient Refused) Start: 08-30-2023 Tobacco Screening Tobacco Screening [facility] Start: 08-13-2023 Screening for malign ant neoplasm of cervix Pap Smear [facility] Comment on above: Postponed from 02/03 (Not Indicated) Start: 07-04-2023 Screening for malign ant neoplasm of breast Mammogram [facility] Start: 12-13-2022 Influenza vaccination Influenza Vacc ine [facility] Start: 2015 Administration of varicella zoster vaccine Zoster (Shingles) Vaccine (1 of 2) [facility] Start: 2010 Screening for malign ant neoplasm of colon Colon Cancer Screening 3 Year Cologuard [facility] Start: 1986 Screening for malign ant neoplasm of cervix Pap Smear [facility] Start: 02-04-1984 DTaP,Tdap and Td Vac cines (1 - Tdap) DTaP,Tdap and Td Vaccines (1 - Tdap) [facility] Start: 1965 Tobacco Counseling Tobacco Counselin elvin [facility] Payers Date Payer Category Payer Unknown 2020 Managed Care Other (unspecified) [employer] [id number] 2020 Private Health Insurance [facility] [employer] [id number] 2020-Present [phone] [address] [address] [place] [address] [id number] 2020 Unknown [id number] 1965 Unknown [id number] 1965 Unknown [id number] 1965 Unknown [id number] 1965 Unknown [id number] 1959 Unknown [id number] Social History Date Type Detail Facility Start: 05-25-2020 End: 05-21-2023 Sex Assigned At [facility] Start: 08-29-2022 [facility] History of tobacco use Cigarette Smoker P [facility] Start: 05-25-2020 End: 08-29-2022 Cigarettes smoked current (pack per day) - Reported 0.5 [facility] Start: 08-29-2022 Tobacco use and exposure Smokeless tobacco non-user [facility] Start: 05-21-2023 End: 04-09-2024 Alcohol intake Current drinker of alcohol (finding) [facility] Adolescent depressio n screening assessment 0 [facility] Start: 1965 Sex Assigned At Not on file P [facility] Start: 11-17-2014 Sex Female (finding) [facility] Clinical Notes 02-09-2021 to 04-09-2024 [facility] 04/09/2024 11:40 AM ESTTelephone Encounter - Shara Stapleton [facility] - 03/24/2024 1:10 PM ESTTelephone Encounter - Shara Stapleton [facility] 03/24/2024 1:10 PM EST Note Date & Type Note Facility 04-09-2024 History of Presen t illness Narrative [address] [place] [address] Patient: Anaya Serrano Date of : 1965 Encounter Date: 04/09/2024 History of Present Illness: The patient is a 59 y.o. female, an established patient, and is here for Chief Complaint Patient presents with Influenza Pt sick APR 06 afternoon, bump left breast it is hard Sinus Problem . HPI Patient's symptoms started 4 days ago with fever, chills, sinus symptoms, vomiting and nausea. She denies any shortness of breath. Patient states she is able to eat and drink some and is staying hydrated but most solid food make her nauseated. She was able to keep down broth and Jell-O today. She is rotating Tylenol and Motrin but still has low-grade fever despite these. Her highest fever was 103. She feels her sick contacts came from work - she works at [employer]. Problem List Items Addressed This Visit Other Smoking Other Visit Diagnoses Influenza A - Primary Relevant Medications oseltamivir (TAMIFLU) 75 mg capsule Fever, unspecified fever cause Relevant Orders POCT Influenza A/Influenza B/SARS-COV-2 Veritor (Completed) Past Medical, Family, and Social History Update: The following portions of the patient's history were reviewed and updated as appropriate: allergies, current medications, past family history, past medical history, past social history, past surgical history and problem list. Past Medical History: Diagnosis Date Hypertension Past Surgical History: Procedure Laterality Date APPENDECTOMY HERNIA REPAIR HYSTERECTOMY Current Outpatient Medications Medication Sig Dispense Refill ibuprofen (MOTRIN) 800 mg tablet take 1 tablet by mouth every 8 hours if needed for pain metoprolol succinate XL (TOPROL XL) 50 mg 24 hr tablet TAKE 1 TABLET BY MOUTH EVERY MORNING 30 tablet 0 ondansetron ODT (ZOFRAN ODT) 4 mg disintegrating tablet Dissolve 1 tablet (4 mg total) on tongue every 8 (eight) hours as needed for nausea or vomiting. 20 tablet 0 oseltamivir (TAMIFLU) 75 mg capsule Take 1 capsule (75 mg total) by mouth in the morning and 1 capsule (75 mg total) before bedtime. Do all this for 5 days. 10 capsule 0 No current facility-administered medications for this visit. (All medications reviewed and updated by provider since last office visit or hospitalization) Allergies: Patient has no known allergies. Tobacco History: Social History Tobacco Use Smoking Status Every Day Current packs/day: 0.50 Average packs/day: 0.5 packs/day for 38.0 years (19.0 ttl pk-yrs) Types: Cigarettes Smokeless Tobacco Never (If patient a smoker, smoking cessation counseling offered) Social History: Social History Substance and Sexual Activity Alcohol Use Yes Review of Systems: Review of Systems Constitutional: Positive for activity change, appetite change, chills, fatigue and fever. Negative for unexpected weight change. HENT: Positive for congestion, postnasal drip, rhinorrhea and sinus pressure. Negative for ear pain and sore throat. Respiratory: Negative. Cardiovascular: Negative. Gastrointestinal: Positive for nausea and vomiting. Negative for constipation and diarrhea. Musculoskeletal: Positive for myalgias. Neurological: Positive for headaches. Physical Exam: BP 126/56 (BP Site: Left Arm, BP Postition: Sitting, BP CUFF SIZE: M (9-13 inches)) Pulse 74 Temp 37.6 C (99.7 F) (Oral) Resp 18 Ht 157.5 cm (5' 2 ) Wt 50.7 kg (111 lb 11.2 oz) SpO2 96% BMI 20.43 kg/m Physical Exam Vitals reviewed. Constitutional: General: She is not in acute distress. Appearance: Normal appearance. She is ill-appearing. HENT: Head: Normocephalic and atraumatic. Right Ear: Tympanic membrane, ear canal and external ear normal. Left Ear: Tympanic membrane, ear canal and external ear normal. Nose: Comments: Mask was not lowered due to influenza pos Eyes: Pupils: Pupils are equal, round, and reactive to light. Cardiovascular: Rate and Rhythm: Normal rate and regular rhythm. Heart sounds: Normal heart sounds. Pulmonary: Effort: Pulmonary effort is normal. Breath sounds: Normal breath sounds. Abdominal: General: Bowel sounds are normal. Palpations: Abdomen is soft. Tenderness: There is no abdominal tenderness. Musculoskeletal: Right lower leg: No edema. Left lower leg: No edema. Lymphadenopathy: Cervical: No cervical adenopathy. Skin: General: Skin is warm. Capillary Refill: Capillary refill takes less than 2 seconds. Neurological: General: No focal deficit present. Mental Status: She is alert and oriented to person, place, and time. Psychiatric: Mood and Affect: Mood normal. Behavior: Behavior normal. Assessment and Plan: Anaya was seen today for influenza and sinus problem. Diagnoses and all orders for this visit: Influenza A Fever, unspecified fever cause - POCT Influenza A/Influenza B/SARS-COV-2 Veritor Smoking Other orders - oseltamivir (TAMIFLU) 75 mg capsule; Take 1 capsule (75 mg total) by mouth in the morning and 1 capsule (75 mg total) before bedtime. Do all this for 5 days. - ondansetron ODT (ZOFRAN ODT) 4 mg disintegrating tablet; Dissolve 1 tablet (4 mg total) on tongue every 8 (eight) hours as needed for nausea or vomiting. Follow-up: Will treat with Tamiflu b.i.d. x5 days as above and she may use Zofran to help her keep down fluids and food. She should continue to rotate Tylenol and Motrin. She has not been smoking throughout this illness and she was encouraged to stop smoking but she is unsure whether she is interested in stopping smoking completely. Patient was advised to go to the ER if she has unable to maintain hydration or if she has significant shortness of breath that develops. If she is not feeling better by Friday she is to inform provider. To note, patient did not tell provider about any breast symptoms although she told the MA but MA notified provider after appointment was over and patient had left. Will ask that staff set her up for a wellness appointment next available as she has not been seen in >1.5 years up until this sick visit. NUSRAT GARDNER APRN-CNP 04/09/24 1409 documented in this encounter [facility] 03-24-2024 Miscellaneous Notes Formattin g of this note might be different from the original. She is overdue for appt- I'll give temp supply documented in this encounter [facility] 03-24-2024 Telephone encount er Note She is overdue for appt- I'll give temp supply [facility] 05-21-2023 History of Presen t illness Narrative Subjective Patient ID: Anaya Serrano is a 58 y.o. female. Onset of pain on Friday night She has been coughing almost since The pain started intensely and suddenly on Friday night and it hurt to bend over and hurt to take a breath it hurts to touch from her lateral chest wall, her axilla to her spine She tried heat on the area and it made it much worse She describes the pain as an intense throbbing She waited to go to the ER until Friday morning when she just couldn't take the pain anymore They did a chest x-ray an EKG, blood work and checked for covid and flu, all turned out ok They did give her toradol for pain and sent her home for tylenol with codeine and ibuprofen They gave her 20 tablets enough for up to 5 days, but she can't work or drive with it The following portions of the patient's history were reviewed and updated as appropriate: allergies, current medications, past family history, past medical history, past social history, past surgical history, problem list, and medication reconciliation was completed including current medication and post discharge medication. Review of Systems Constitutional: Positive for activity change and fatigue. Negative for fever. HENT: Negative. Eyes: Negative. Respiratory: Negative for chest tightness and shortness of breath. Cardiovascular: Positive for chest pain. Gastrointestinal: Negative. Musculoskeletal: Positive for arthralgias, back pain and myalgias. Skin: Negative. Allergic/Immunologic: Negative. Hematological: Negative. Psychiatric/Behavioral: The patient is nervous/anxious. Objective Physical Exam Vitals and nursing note reviewed. Constitutional: General: She is in acute distress. Cardiovascular: Rate and Rhythm: Normal rate and regular rhythm. Heart sounds: Normal heart sounds. No murmur heard. Pulmonary: Effort: Pulmonary effort is normal. Breath sounds: Normal breath sounds. Abdominal: General: Abdomen is flat. Palpations: Abdomen is soft. Musculoskeletal: General: Tenderness present. Comments: The left lateral chest wall just beneath the axilla is exquisitely tender to even light touch, there is soft tissue swelling but no active rash is seen at this time but when touched she reacts immediately with pain and withdrawal and this extends to the mid thoracic spine Lymphadenopathy: Cervical: No cervical adenopathy. Skin: General: Skin is warm and dry. Neurological: Mental Status: She is alert and oriented to person, place, and time. Gait: Gait normal. Psychiatric: Mood and Affect: Mood is anxious. Assessment/Plan Anaya was seen today for chest pain. Diagnoses and all orders for this visit: Chest wall pain Herpes zoster with complication Other orders - valACYclovir (VALTREX) 1000 mg tablet; Take 1 tablet (1,000 mg total) by mouth 3 (three) times a day for 10 days. - predniSONE (DELTASONE) 20 mg tablet; Use twice daily for 5 days and then once daily for 5 days She confirmed chicken pox as a child While there is no obvious rash at this time the pattern and type of pain she has point to shingles as the culprit for her sudden onset of acute and severe pain Will start an antiviral and prednisone and observe Avoid use of heat she can try ice Off work this week The OARRS/MAPPS database was reviewed today and found to be appropriate. No indication of medication diversion, or non compliance. GABBI Alexander 05/21/23 1335 [facility]21 Evaluation note Encounter Date Diagnosis Assessment Notes Sep, Dental abscess (ICD-10 - K04.7) reviewed known allergies c pt, rx sent, take as directed. recommended otc ibuprofen and tylenol for pain, use as directed. warm compresses to affected area as directed. must f/u c dentistry for further eval and mgmt. seek immediate eval if intractable pain, fevers, flu-like symptoms accompanied by worsening s/s. pt verbalizes understanding and agrees with tx plan. Sep, Other Due to infection control protocols for COVID-19 virus, direct physical contact with patient was limited to only the absolute essential needed assessments. [facility] Other 10-29-2021 Evaluation note* Encounter Date Diagnosis Assessment Notes Treatment Notes Treatment Clinical Notes Jan, Right otitis media with effusion (ICD-10 - H65.91) Jan, Acute otitis externa of right ear, unspecified type (ICD-10 - H60.501) Jan, Other Drink plenty fluids, get plenty of rest. Continue home medications as prescribed. Use the eardrops as prescribed for 7 days. Take the prednisone as prescribed until gone. Use the Flonase inhaler as prescribed until your symptoms improve. Follow-up with your family physician if no improvement in 2 to 3 days. [facility] Other Evaluation note* Diagnosis Chest wall pain- Primary Painful respiration Herpes zoster with complication [facility] Diagnosis Influenza A- Primary Influenza with other respiratory manifestations Fever, unspecified fever cause Smoking Tobacco use disorder [facility] Diagnosis Encounter for screening mammogram for malignant neoplasm of breast- Primary [facility] - [facility]orted* Type Description Date Medical History HTN [facility] Other InstructionsNot on filedocumented in this encounter [facility] filedocumented in this encounter [facility] filedocumented in this encounter [facility] filedocumented in this encounter [facility] filedocumented in this encounter [facility] filedocumented in this encounter [facility] Summary Purpose Family History No Family History Records FoundNo Family History Records FoundNo Family History Records FoundNo Family History Records FoundNo Family History Records FoundNo Family History Records Found Advance Directives No Advanced Directives Records FoundNo Advanced Directives Records FoundNo Advanced Directives Records FoundNo Advanced Directives Records FoundNo Advanced Directives Records FoundNo Advanced Directives Records Found Additional Source Comments INFORMATION SOURCE (unrecogn ized section and content) DATE CREATED AUTHOR 10/07/2017 [facility] DATE CREATED AUTHOR AUTHOR'S ORGANIZ ATION 10/08/2017 [facility] DATE CREATED AUTHOR AUTHOR'S ORGANIZ ATION 04/26/[address] [facility] DATE CREATED AUTHOR AUTHOR'S ORGANIZ ATION 06/02/2021 [facility] DATE CREATED AUTHOR AUTHOR'S ORGANIZ ATION 07/15/2021 [facility] DATE CREATED AUTHOR AUTHOR'S ORGANIZ ATION 04/11/20[facility] REASON FOR VISIT (unrecogniz ed section and content) Reason Comments Chest Pain Er/ needs note Reason Comments Med Refill Reason Comments Sinus Problem Care Teams (unrecognized sec tion and content) Jewel Staker Relationship Specialty Start Date End Date Jhon Rosas DO [address], [facility] [place] [address] PCP - General Family Medicine 11/08/19 Jewel Staker Relationship Specialty Start Date End Date Jhon Rosas DO [address] [place] [address] PCP - [facility] Family Medicine 11/08/19 Jewel Staker Relationship Specialty Start Date End Date Jhon Rosas DO [address], [place] [address] PCP - [facility] 11/08/19 Jewel Staker Relationship Specialty Start Date End Date Jhon Rosas DO [address], [place] [address] PCP - [facility] 11/08/19 Jewel Staker Relationship Specialty Start Date End Date Jhon Rosas DO [address], [place] [address] PCP - [facility] 11/08/19 Jewel Staker Relationship Specialty Start Date End Date Jhon Rosas DO [address], [place] [address] PCP - [facility] 11/08/19 FOR RECORDS PERTAINING TO PATIENTS WHO ARE OR HAVE BEEN ENROLLED IN A CHEMICAL DEPENDENCY/SUBSTANCEABUSE PROGRAM, SOME INFORMATION MAY BE OMITTED. This clinical summary was aggregated from multiple sources. Caution should be exercised in using it in the provision of clinical care. This summary normalizes information from multiple sources, and as a consequence, information in this document may materially change the coding, format and clinical context of patient data. In addition, data may be omitted in some cases. CLINICAL DECISIONS SHOULD BE BASED ON THE PRIMARY CLINICAL RECORDS. [employer] [facility]. provides no warranty or guarantee of the accuracy or completeness of information in this document.
--- NOTE | 2024-04-23 14:06 | ECG_ITS ---
The [facility] Test Date: 2024-04-23 Pat Name: VEENA BUENO Department: Room: - Gender: Female Information And Referral Director: : 1965 Requested By: NAVDEEP GERARD Order Number: [id number] Reading MD: VIVIAN BRYSON Measurements Intervals [place] Rate: 51 P: 69 [place]: 166 QRS: 79 QRSD: 92 T: 68 QT: 424 QTc: 400 Interpretive Statements 1100 Sinus rhythm 5222 Moderate voltage criteria for LVH, may be normal variant 9130 borderline ECG Compared to ECG 05/19/2023 10:13:59 Left ventricular hypertrophy now present Myocardial infarct finding no longer present Electronically Signed On 04-24-2024 8:01:46 EST by VIVIAN BRYSON
[2024-04-23 14:07] VITALS: PULSE 53
--- NOTE | 2024-04-23 14:12 | ED_ITS ---
HPI HPI - General Adult General Chief complaint: Back Pain/Injury Stated complaint: BACK PAIN Time Seen by Provider: 04/23/24 13:52 Source: patient Mode of arrival: walk-in History of Present Illness HPI narrative: Patient is a 59-year-old female who presents to the emergency department for the evaluation of mid back pain for the last week. She reports pain extending to the paraspinal areas bilaterally, she denies any mechanism of injury or trauma. Pain is worse with movement. She denies any history of back problems. No medications were taken prior to arrival. She drove herself to the ER and ambulates to an exam room with no difficulty. She has no peripheral paresthesias to the extremities, no urinary symptoms. She denies any abdominal pain, fevers or vomiting. Related Data Home Medications ?Medication ?Instructions ?Recorded ?Confirmed metoprolol succinate 50 mg 50 mg PO DAILY 05/19/23 05/19/23 tablet,extended release 24 hr Previous Rx's ?Medication ?Instructions ?Recorded acetaminophen 300 mg-codeine 30 mg 1 tab PO Q6H PRN pain 5 days #20 05/19/23 tablet tabs ibuprofen 800 mg tablet 800 mg PO Q8H PRN pain #20 tabs 05/19/23 hydrocodone 5 mg-acetaminophen 325 1 tab PO Q6H PRN pain 3 days #12 04/23/24 mg tablet tabs ketorolac 10 mg tablet 10 mg PO TID PRN pain #10 tabs 04/23/24 methocarbamol 750 mg tablet 750 mg PO TID PRN pain #20 tabs 04/23/24 Allergies Allergy/AdvReac Type Severity Reaction Status Date / Time No Known Drug Allergies Allergy Verified 05/19/23 09:59 Opioid HPI Opioid Management Most Recent Opioid Data: Last Pain Scale 10 04/23/24 14:30 04/23/24 Last MAR Pain Assessment 04/23/24 14:30 Review of Systems ROS Constitutional Denies: fever or chills Ears, nose, mouth, and throat Denies: throat pain or nasal congestion Cardiovascular Denies: chest pain Respiratory Denies: shortness of breath Gastrointestinal Denies: abdominal pain, nausea or vomiting Musculoskeletal Reports: back pain; Denies: neck pain, extremity pain or extremity swelling Integumentary/Breast Denies: rash Neurological Denies: numbness in extremities or weakness in extremities Hematologic/Lymphatic Denies: easy bruising or easy bleeding PFSH PFS Social History Smoking status: Heavy tobacco smoker Little interest or pleasure in doing things: not at all Feeling down, depressed, or hopeless: not at all Exam Narrative Exam Narrative: Gen.: Awake, alert, in no distress Head: Normocephalic, atraumatic ENT: Moist mucous membranes Respiratory: No respiratory distress Back: Diffuse tenderness of the inferior thoracic and superior lumbar spine with no bony point tenderness, no CVA tenderness. No rashes or obvious deformity. No step-off noted Extremities: Moves extremities equally Psych: Normal mood and affect Neuro: No focal neuro deficit Skin: Warm, dry, intact Constitutional Vital Signs, click to edit/add: Last Vital Signs Temp 98.4 F 04/23/24 13:34 Pulse 50 L 04/23/24 16:00 Resp 18 04/23/24 16:00 BP 155/82 H 04/23/24 13:34 Pulse Ox 99 04/23/24 13:34 O2 Del Method Room Air 04/23/24 13:34 Course Vital Signs Vital signs: Vital Signs Temperature 98.4 F 04/23/24 13:34 Pulse Rate 60 04/23/24 13:34 Respiratory Rate 16 04/23/24 13:34 Blood Pressure 155/82 H 04/23/24 13:34 Pulse Oximetry 99 04/23/24 13:34 Oxygen Delivery Method Room Air 04/23/24 13:34 Temperature 98.4 F 04/23/24 13:34 Pulse Rate 50 L 04/23/24 16:00 Respiratory Rate 18 04/23/24 16:00 Blood Pressure 155/82 H 04/23/24 13:34 Pulse Oximetry 99 04/23/24 13:34 Oxygen Delivery Method Room Air 04/23/24 13:34 Medical Decision Making MDM Narrative Medical decision making narrative: Laboratory studies including D-dimer and troponin are within normal limits, lipase is mildly elevated but is not 3 times the upper limit of normal and the patient has no CT imaging findings consistent with pancreatitis. She has no abdominal pain, nausea or vomiting. CT shows the patient has a small 1.4 cm area in the right upper pole of the kidney which appears to be a nodule but will require MRI follow-up to rule out renal cell carcinoma. I made the patient and her at bedside aware of these incidental findings, I do not feel this finding is causing her back pain at this time. She has an unremarkable urine specimen, reproducible pain with movement. She will be treated for musculoskeletal back pain at this time. She was given a copy of her CT for her primary care to follow-up. Return to the emergency department if symptoms change or worsen. SUPERVISED APC VISIT, PHYSICIAN ATTESTATION: Based on the medical record the care appears appropriate. ? Medical Records Medical records reviewed: Yes I reviewed the patient's medical records Lab Data Lab results reviewed: Yes I reviewed the patient's lab results Labs: Lab Results 04/23/24 04/23/24 Range/Units 13:38 14:31 WBC 10.1 (4.0-11.0) 10^3/uL RBC 4.56 (4.20-5.40) 10^6/uL Hgb 13.3 (12.0-16.0) g/dL Hct 39.2 (36.0-48.0) % MCV 86.0 (81.0-99.0) fL MCH 29.2 (26.7-34.0) pg MCHC 33.9 (29.9-35.2) g/dL RDW 12.0 (11.0-15.0) % Plt Count 258 (150-450) 10^3/uL MPV 10.7 (9.5-13.5) fL Neut % (Auto) 63.6 (43.0-75.0) % Lymph % (Auto) 29.0 (20.5-60.0) % K[place]haw % (Auto) 4.8 (1.7-12.0) % Eos % (Auto) 1.5 (0.9-7.0) % Baso % (Auto) 0.8 (0.2-2.0) % Neut # (Auto) 6.4 (1.4-6.5) 10^3/uL Lymph # (Auto) 2.9 (1.2-3.8) 10^3/uL Kershaw # (Auto) 0.5 (0.3-0.8) 10^3/uL Eos # (Auto) 0.2 (0.0-0.7) 10^3/uL Baso # (Auto) 0.1 (0.0-0.1) 10^3/uL Abs Immat Gran (auto) 0.03 (0.00-0.03) 10^3/uL Imm/Tot Granulo (auto) 0.3 (0.0-0.5) % PT 10.5 (9.0-11.6) sec INR 0.99 D-Dimer 0.21 (<=0.59) mg/L FEU Sodium 140 (136-145) mmol/L Potassium 3.5 (3.5-5.1) mmol/L Chloride 103 (98-107) mmol/L Carbon Dioxide 28.7 (21.0-32.0) mmol/L Anion Gap 11.8 BUN 11.0 (7.0-18.0) mg/dL Creatinine 0.81 (0.55-1.02) mg/dL Est GFR ( Amer) >60 (>=60 mL/min/1.73m^2) Est GFR (Non-Af Amer) >60 (>=60 mL/min/1.73m^2) BUN/Creatinine Ratio 13.6 Glucose 96 (74-106) mg/dL Lactate 0.4 (0.4-2.0) mmol/L Calcium 8.7 (8.5-10.1) mg/dL Total Bilirubin 0.2 (0.2-1.0) mg/dL AST 11 L (15-37) U/L ALT 12 L (14-59) U/L Alkaline Phosphatase 109 (46-116) U/L Troponin I High Sens 28.8 (4.0-51.3) pg/mL Total Protein 7.1 (6.4-8.2) g/dL Albumin 3.7 (3.4-5.0) g/dL Globulin 3.4 g/dL Albumin/Globulin Ratio 1.1 Lipase 148.0 H (16.0-77.0) U/L Urine Color Yellow (YELLOW) Urine Clarity Clear (CLEAR) Urine pH 6.0 (5.0-9.0) Ur Specific Tiff 1.020 (1.005-1.025) Urine Protein Negative (NEG/TRACE) mg/dL Urine Glucose (UA) Negative (NEGATIVE) mg/dL Urine Ketones Negative (NEGATIVE) mg/dL Urine Occult Blood Negative (NEGATIVE) Urine Nitrite Negative (NEGATIVE) Urine Bilirubin Negative (NEGATIVE) Urine Urobilinogen 0.2 (0.2-1.0) EU/dL Ur Leukocyte Esterase Negative (NEGATIVE) Imaging Data CT scan - abdomen: Attestation: I have reviewed the pertinent imaging results. Radiologist's impression: ITS Impressions Abdomen/Pelvis CT 04/23/24 15:33 IMPRESSION: No acute abdominal pathology. No acute inflammatory process. No obstructing urinary tract stone. No evidence for bowel obstruction. Solid appearing exophytic nodule of the upper pole right kidney. A renal cell cancer is not excluded. Further evaluation recommended with pre and postcontrast MRI of the kidneys. Electronically authenticated by: NAVDEEP HEWITT Date: 04/23/2024 15:57 ECG Data Attestation: I personally reviewed and interpreted this ECG as follows: (Normal sinus rhythm at a rate of 51, no acute ST elevation or ectopy. EKG reviewed by attending physician) Discharge Plan Discharge Chief Complaint: Back Pain/Injury Clinical Impression: Bilateral thoracic back pain Patient Disposition: Home, Self-Care Time of Disposition Decision: 16:09 Condition: Good Mode of Transportation: Private Vehicle Prescriptions / Home Meds: New ketorolac 10 mg tablet 10 mg PO TID PRN (Reason: pain) Qty: 10 0RF methocarbamol 750 mg tablet 750 mg PO TID PRN (Reason: pain) Qty: 20 0RF hydrocodone-acetaminophen 5-325 mg tablet 1 tab PO Q6H PRN (Reason: pain) 3 Days Qty: 12 0RF Rx Instructions: DX: M54.5 No Action metoprolol succinate 50 mg tablet extended release 24 hr 50 mg PO DAILY acetaminophen-codeine 300-30 mg tablet 1 tab PO Q6H PRN (Reason: pain) 5 Days Qty: 20 0RF ibuprofen 800 mg tablet 800 mg PO Q8H PRN (Reason: pain) Qty: 20 0RF Print Language: Barbadian Instructions: Thoracic Pain (ED) Additional Instructions: Please follow up with your doctor for further testing on your kidney Referrals: NAVDEEP GERARD [Primary Care Provider] - 1 week Discharge Date/Time: 04/23/24 16:18
[2024-04-23 14:30] VITALS: PULSE 53
[2024-04-23] MEDS: KETOROLAC TROMETHAMINE 30 MG/ML VIAL IVP (14:30)
[2024-04-23] MEDS: METHYLPREDNISOLONE SOD SUCC PF 125 MG/2 ML VIAL IVP (14:30)
[2024-04-23 14:45] LABS: Bilirubin Urine NEGATIVE (NEGATIVE); Blood Urine NEGATIVE (NEGATIVE); Clarity Urine CLEAR (CLEAR); Color Urine YELLOW (YELLOW); Glucose Urine UA NEGATIVE (NEGATIVE); Ketones Urine NEGATIVE (NEGATIVE); Leukocyte Esterase Urine NEGATIVE (NEGATIVE); Nitrite Urine NEGATIVE (NEGATIVE); Protein Urine NEGATIVE (NEG/TRACE); Urine Microscopic Indicated NO; Urobilinogen Urine 0.2 EU/dL (0.2-1.0)
[2024-04-23 14:48] LABS: Basophils Absolute Auto 0.1 10^3/uL (0.0-0.1); Basophils Percent Auto 0.8 % (0.2-2.0); Eosinophils Absolute Auto 0.2 10^3/uL (0.0-0.7); Eosinophils Percent Auto 1.5 % (0.9-7.0); Hematocrit 39.2 % (36.0-48.0); Hemoglobin 13.3 g/dL (12.0-16.0); Immature Granulocytes Abs Auto 0.03 10^3/uL (0.00-0.03); Immature Granulocytes Pct Auto 0.3 % (0.0-0.5); Lymphocytes Absolute Auto 2.9 10^3/uL (1.2-3.8); Mean Corpuscular HGB Conc 33.9 g/dL (29.9-35.2); Mean Corpuscular Hemoglobin 29.2 pg (26.7-34.0); Mean Platelet Volume 10.7 fL (9.5-13.5); Monocytes Absolute Auto 0.5 10^3/uL (0.3-0.8); Monocytes Percent Auto 4.8 % (1.7-12.0); Neutrophils Absolute Auto 6.4 10^3/uL (1.4-6.5); Neutrophils Percent Auto 63.6 % (43.0-75.0); Platelet Count 258 10^3/uL (150-450); Red Blood Count 4.56 10^6/uL (4.20-5.40); White Blood Count 10.1 10^3/uL (4.0-11.0)
[2024-04-23 15:00] VITALS: PULSE 49
[2024-04-23 15:02] LABS: Alanine Aminotransferase 12 U/L (14-59); Albumin Globulin Ratio 1.1; Albumin Level 3.7 g/dL (3.4-5.0); Alkaline Phosphatase 109 U/L (46-116); Anion Gap 11.8; Aspartate Amino Transferase 11 U/L (15-37); BUN Creatinine Ratio 13.6; Bilirubin Total 0.2 mg/dL (0.2-1.0); Calcium 8.7 mg/dL (8.5-10.1); Carbon Dioxide 28.7 mmol/L (21.0-32.0); Chloride 103 mmol/L (98-107); Estimated GFR (African America >60 (>=60 mL/min/1.73m^2); Estimated GFR (Non-African Ame >60 (>=60 mL/min/1.73m^2); Globulin 3.4 g/dL; Glucose 96 mg/dL (74-106); Potassium 3.5 mmol/L (3.5-5.1); Sodium 140 mmol/L (136-145); Total Protein 7.1 g/dL (6.4-8.2)
[2024-04-23 15:04] LABS: Troponin I High Sensitivity 28.8 pg/mL (4.0-51.3)
[2024-04-23 15:21] LABS: Lactate/Lactic Acid 0.4 mmol/L (0.4-2.0)
[2024-04-23 15:26] LABS: D Dimer 0.21 mg/L FEU (<=0.59); INR 0.99; Prothrombin Time 10.5 sec (9.0-11.6)
[2024-04-23 15:30] VITALS: PULSE 47
--- NOTE | 2024-04-23 15:33 | CT_ITS ---
The [address] [address] Patient Name: VEENA BUENO MRN: [id number] date: 1965 Sex: F Assigned Patient Location: ER Current Patient Location: Accession/Order Number: [id number] Exam Date: 04/23/2024 15:40 Report Date: 04/23/2024 15:57 At the request of: FRANCK GEE Procedure: CT abdomen pelvis wo con EXAM: CT abdomen pelvis wo con TECHNIQUE: Axial CT images were obtained of the abdomen and pelvis without intravenous contrast. Sagittal and coronal reformatted images were also obtained. Dose reduction techniques were achieved by using automated exposure control and/or adjustment of mA and/or kV according to patient size and/or use of iterative reconstruction technique. HISTORY: Flank pain, back pain COMPARISON: None. FINDINGS: Lower chest: The lower lungs are clear. Liver: The liver is homogeneous with normal contours and normal size. Gallbladder: The gallbladder is unremarkable. There is no intra or extrahepatic biliary dilatation. Pancreas: The pancreas is homogeneous without evidence for mass lesion or inflammation. Spleen: The spleen is unremarkable without evidence for mass lesion. Adrenal glands: The adrenal glands are unremarkable Kidneys and bladder: 1.4 cm solid appearing nodule exophytic medially off the upper pole right kidney, new from chest CT of 08/25/2009. 2 mm nonobstructing stone lower pole right kidney. Unremarkable unenhanced left kidney. The ureters demonstrate normal caliber. The urinary bladder is unremarkable. GI Tract: Stomach is unremarkable. Visualized small bowel is unremarkable without evidence for obstruction or active inflammation. No CT evidence for acute appendicitis.The visualized portion of the large bowel is unremarkable. Reproductive: The uterus has been removed. Lymph nodes: No retroperitoneal or abdominal lymphadenopathy. Vascular: The aorta is not dilated. Peritoneum: No free intraperitoneal air or fluid. No acute inflammation. Abdominal wall: Unremarkable without acute abnormality. CT/CT abdomen pelvis wo con IMPRESSION: No acute abdominal pathology. No acute inflammatory process. No obstructing urinary tract stone. No evidence for bowel obstruction. Solid appearing exophytic nodule of the upper pole right kidney. A renal cell cancer is not excluded. Further evaluation recommended with pre and postcontrast MRI of the kidneys. Electronically authenticated by: NAVDEEP HEWITT Date: 04/23/2024 15:57
[2024-04-23 16:00] VITALS: PULSE 50
== END 2024-04-23 16:18 | disposition home or self-care (01) ==
PROVIDERS: Physician Assistant; Emergency Provider Emergency Medicine; PCP Family Medicine
DX: M54.6 Pain in thoracic spine (principal); F17.200 Nicotine dependence, unspecified, uncomplicated; N28.89 Other specified disorders of kidney and ureter
CPT/HCPCS: 36415; 74176; 80053; 81003; 83605; 83690; 84484; 85025; 85378; 85610; 93005; 96374; 96375; 99285; J1885; J2919

== ENCOUNTER 2024-05-07 06:42 | Outpatient (OUT) | payer OTHER, SELFPAY ==
--- OUTSIDE RECORDS SUMMARY | 2024-05-07 06:45 | XMS_ITS | CCD ---
Author Organization [facility] Care Team Providers Care Sole Edge Inker Machine Name Role Phone KIRNUS, DINORA Unavailable Unavailable [...] Admitting Unavailable JHON ROSAS Attending Unavailab le FURLOGOPAL, JHON ARCHER Primary Care Unavailab Araceli Rolle Unavailable Cindy Avila Unavailable Jhon Rosas DO Primary Care Provider SHARA STAPLETON Referring Unavailable JHON ROSAS Primary Care Unavailable SHARA STAPLETON Attending Unavailable JHON ROSAS Referring Unavailable JHON ROSAS Primary Care Unavailable SHARA STAPLETON Attending Unavailable JHON ROSAS Referring Unavailable JHON ROSAS Primary Care Unavailable SHAYLA HO Attending Unavailable JHON ROSAS Referring Unavailable BRIENLOJHON BLOCK Primary Care Unavailable Medications Current Medications Medication Drug Class(es) Dates Sig (Normalized) Sig (Original) baclofen 10 mg oral tablet (1 source) gamma-Aminobutyr ic Acid-ergic Agonist Start: take 1 tablet by mouth in the morning, then take 1 tablet by mouth at bedtime baclofen (LIORESAL) 10 mg tablet Take 1 tablet (10 mg total) by mouth in the morning and 1 tablet (10 mg total) before bedtime. 60 tablet 1 04/30/2024 Active Cortisporin Otic 1%-0.35%-1000 units/ml (1 source) Start: Cortisporin Otic 1%-0.35%-1000 units/ml 3 drops right ear tid for 7 days Jan, Active hydroCHLOROthiazide (2 sources) Thiazide Diuretic hydroCHLOROthiazide Active ibuprofen 800 mg oral tablet (11 sources) Nonsteroidal Anti-inflammator y Drug Start: End: 5 take 1 tablet by mouth every eight hours as needed for pain ibuprofen (MOTRIN) 800 mg tablet Take 1 tablet (800 mg total) by mouth every 8 (eight) hours as needed for pain. 30 tablet 1 04/30/2024 Active Lisinopril (2 sources) Angiotensin Converting Enzyme Inhibitor Lisinopril Active Meclizine (2 sources) Antiemetic Meclizine HCl Ac tive 24 hr metoprolol succinate 50 mg extended release oral tablet (12 sources) beta-Adrenergic Christiano Start: 5 take 1 tablet by mouth every twenty-four hours in the morning metoprolol succinate XL (TOPROL XL) 50 mg 24 hr tablet TAKE 1 TABLET BY MOUTH IN THE MORNING 90 tablet 1 04/28/2024 Active Start: 12-08-2023 End: 04-28-2024 take 1 tablet by mouth once daily in the morning metoprolol succinate XL (TOPROL XL) 50 mg 24 hr tablet TAKE 1 TABLET BY MOUTH EVERY MORNING 30 tablet 03/29/2024 04/28/2024 Discontinued Start: 11-11-2022 take 1 tablet by [facility] once daily metoprolol succinate XL (TOPROL XL) 50 mg 24 hr tablet take 1 tablet by mouth once daily 90 tablet 1 11/11/2022 Active ondansetron 4 mg disintegrating oral tablet (6 sources) Serotonin-3 Receptor Antagonist Start: 04-09-2024 take [...] 5 days 05/19/2023 04/09/2024 Discontinued (Therapy completed) acetaminophen 325 mg / HYDROcodone bitartrate 5 mg oral tablet (1 source) Opioid Agonist Start: 04-23-2024 End: 04-30-2024 take 1 tablet by mouth every six hours as needed for pain HYDROcodone-aceta minophen (NORCO) 5-325 mg per tablet TAKE 1 TABLET BY MOUTH EVERY 6 HOURS NEEDED FOR PAIN FOR 3 DAYS 04/23/2024 04/30/2024 Discontinued (Therapy completed) famotidine 20 mg oral [...] mcg 2 sprays nasally qd Jan, Active ketorolac tromethamine 10 mg oral tablet (1 source) Nonsteroidal Anti-inflammatory Drug, Cyclooxygenase Inhibitor Start: 04-23-2024 End: 04-30-2024 take 1 tablet by mouth three times daily as needed for pain ketorolac (TORADOL) 10 mg tablet Take 1 tablet (10 mg total) by mouth 3 (three) times a day as needed for pain. 04/23/2024 04/30/2024 Discontinued (Therapy completed) methocarbamol 750 mg oral tablet (1 source) Muscle Relaxant Start: 04-23-2024 End: 04-30-2024 take 1 tablet by mouth three times daily as needed methocarbamoL (ROBAXIN) 750 mg tablet Take 1 tablet (750 mg total) by mouth 3 (three) times a day as needed. 04/23/2024 04/30/2024 Discontinued (Therapy completed) predniSONE 20 mg oral tablet (6 sources) [...] Problem Date Documented Date Episodic/Chronic Essential hypertension (10 sources) Hypertensive disorder; Translations: [Essential (primary) hypertension] 08-29-2022 Chronic Essential hypertension (1 source) Essential hypertension Onset: 01-15-2017 Fever of unknown origin (2 sources) Fever; Translations: [Fever, unspecified] Onset: 04-09-2024 04-09-2024 Episodic Influenza (2 sources) Influenza due to Influenza A virus; Translations: [Influenza due to other identified influenza virus with other respiratory manifestations] Onset: 04-09-2024 04-09-2024 Episodic Joint disorders and dislocations; trauma-related (10 sources) Chondromalacia of patella; Translations: [Chondromalacia patellae, unspecified knee] Onset: 06-27-2010 05-02-2022 Chronic Other diseases of kidney and ureters (2 sources) Renal mass; Translations: [Other specified disorders of kidney and ureter] 05-04-2024 Chronic Other screening for suspected conditions (not mental disorders or infectious disease) (3 sources) Patient encounter status; Translations: [Encounter for screening mammogram for malignant neoplasm of breast] Onset: 04-21-2024 04-12-2024 Episodic Other upper respiratory infections (1 source) Acute upper respiratory infection, unspecified; Translations: [ACUTE UP RESPIRATORY INFECTION UNS] Onset: 04-25-2021 Episodic Spondylosis; intervertebral disc disorders; other back problems (3 sources) Dorsalgia, unspecified; Translations: [Backache] Onset: 04-30-2024 04-30-2024 Episodic Substance-related disorders (13 sources) Smoker; Translations: [Nicotine dependence, unspecified, uncomplicated] [...] 10-05-2021 Episodic Joint disorders and dislocations; trauma-related (10 sources) Tear of lateral meniscus of knee; Translations: [Other tear of lateral meniscus, current injury, unspecified knee, initial encounter] Onset: 06-27-2010 05-02-2022 Episodic Mood disorders (10 sources) Mood disorders Onset: 05-21-2023 Resolved: 04-09-2024 05-21-2023 Nonspecific chest pain (4 sources) Chest pain, unspecified; Translations: [Chest wall pain] Onset: 01-15-2017 05-21-2023 Episodic Other connective tissue disease (10 sources) Patellar tendonitis; Translations: [Patellar tendinitis, unspecified [...] W/AND (SUSP) EXPOS COVID-19] Onset: 04-19-2021 Unclassified (10 sources) Onset: 06-07-2022 06-07-2022 Unclassified (1 source) Patient encounter status 04-22-2024 Viral infection (2 sources) Herpes zoster with complication; Translations: [Zoster with other complications] Onset: 05-21-2023 05-21-2023 Episodic Results Test Name Value Interpretation Reference Range Facility MAMM SCREENING BILATERAL W C it application architect 04-22-2024 MAMM SCREENING BILATERAL W CAD MAMM SCREENING BILATERAL W CAD ANAYA SERRANO 1965 [id number] EXAM: MAMM SCREENING BILATERAL W CAD, 04/21/2024 12:59 PM CLINICAL INDICATIONS: Screening, Encounter for screening mammogram for malignant neoplasm of breast COMPARISON: 06/17/2022 TECHNIQUE: Bilateral digital tomosynthesis MLO and CC views of the breasts were obtained, with creation of synthetic 2D views. Computer aided detection was utilized. FINDINGS: The breasts are heterogeneously dense, which may obscure small masses. Please note examination slightly compromised secondary to difficulty positioning There are no suspicious masses, calcifications, or areas of architectural distortion. IMPRESSION: Please note examination slightly compromised secondary to difficulty positioning No mammographic evidence of malignancy. BI-RADS: BI-RADS 1 - Negative RECOMMENDATION: Recommend MBI as a supplemental screening combined with annual mammography.. Due to the density and/or complexity of breast tissue on mammography, Molecular Breast Imaging is recommended as a supplement to annual screening mammography. MBI can be used to help detect mammographically occult cancers in dense breasts. RISK ASSESSMENT: TC Lifetime risk: 4.7%. The patient's reported personal and family medical history was used calculate their Tyrer-Cuzick lifetime risk of malignancy. Scores less than 20% are not considered high risk per ACR guidelines and patient should continue with the above recommendation. Finalized by Jesse Robertson MD on 04/22/2024 8:23 AM 1 c MOLEC BR IMG Normal [facility] POCT Influenza A/Influenza B /SARS-COV-2 Veritoron 04-09-2024 External Poct Influenza A Antigen Positive [facility] External Poct Influenza B Antigen Negative [facility] SARS-CoV-2 (COVID-19) Ag IA.rapid Ql (Resp) Negative [facility] COMPREHENSIVE METABOLIC PANE Seven 07-13-2021 Albumin [Mass/Vol] 4.5 g/dL Normal 3.6-5.1 [facility] Comment on above: Performed By: #### 1 9146, 5395 #### [facility] [address] [place] [address], [address] [place] [id number] Importer Or Exporter: Clarence Burnett MD Albumin/Globulin [Mass ratio] 1.8 {ratio} Normal 1.0-2.5 [facility] Comment on above: Performed By: #### 1 0231, 7035 #### [facility] of [address], [address] [place] [address] Importer Or Exporter: Clarence Burnett MD ALP [Catalytic activity/Vol] 96 U/L Normal 37-153 [facility] Comment on above: Performed By: #### 1 0231, 7600 #### [facility] of [address], [address] [place] [address] Importer Or Exporter: Clarence Burnett MD ALT [Catalytic activity/Vol] 9 U/L Normal 6-29 [facility] Comment on above: Performed By: #### 1 023, 7600 #### [facility] of [address], [address] [place] [address] Importer Or Exporter: Clarence Burnett MD AST [Catalytic activity/Vol] 12 U/L Normal 10-35 [facility] Comment on above: Performed By: #### 1 023, 7600 #### [facility] of [address], [address] [place] [address] Importer Or Exporter: Clarence Burnett MD Bilirubin [Mass/Vol] 0.2 mg/dL Normal 0.2-1.2 [facility] Comment on above: Performed By: #### 1 023, 7600 #### [facility] of [place] [address] Importer Or Exporter: Clarence Burnett MD BUN/CREATININE RATIO NOT APPLICABLE Normal 6-22 [facility] Comment on above: Performed By: #### 1 0231, 7600 #### [facility] of [place] [address] Importer Or Exporter: Clarence Burnett MD Calcium [Mass/Vol] 9.6 mg/dL Normal 8.6-10.4 [facility] Comment on above: Performed By: #### 1 0231, 7600 #### [facility] of [place] [address] Importer Or Exporter: Clarence Burnett MD Chloride [Moles/Vol] 99 mmol/L Normal 98-110 [facility] Comment on above: Performed By: #### 1 0231, 7600 #### [facility] [place] [address] Importer Or Exporter: Clarence Burnett MD CO2 [Moles/Vol] 33 mmol/L High 20-32 [facility] Comment on above: Performed By: #### 1 023, 7600 #### [facility] [place] [address] Importer Or Exporter: Clarence Burnett MD Creatinine [Mass/Vol] 0.76 mg/dL Normal 0.50-1.05 [facility] Comment on above: Result Comment: For patients >49 years of age, the reference limit for Creatinine is approximately 13% higher for people identified as -Guamanian. Performed By: #### 1 230, 7600 #### [facility] [place] [address] Importer Or Exporter: Clarence Burnett MD eGFR NON-AFR. JORDANIAN 88 mL/min/1.73m2 Normal > OR = 60 [facility] Comment on above: Performed By: #### 1 230, 7600 #### [facility] [place] [address] Importer Or Exporter: Clarence Burnett MD GFR/1.73 sq M.predicted among blacks MDRD (S/P/Bld) [Vol rate/Area] 102 mL/min/{1.73_m2} Normal > OR = 60 [facility] Comment on above: Performed By: #### 1 230, 7600 #### [facility] of [place] [address] Importer Or Exporter: Clarence Burnett MD Globulin (S) [Mass/Vol] 2.5 g/dL Normal 1.9-3.7 [facility] Comment on above: Performed By: #### 1 023, 7600 #### [facility] of [place] [address] Importer Or Exporter: Clarence Burnett MD Glucose [Mass/Vol] 77 mg/dL Normal 65-139 [facility] Comment on above: Result Comment: Non-fasting reference interval Performed By: #### 1 0231, 7600 #### [facility] of [address], [address] [place] [address] Importer Or Exporter: Clarence Burnett MD Potassium [Moles/Vol] 3.2 mmol/L Low 3.5-5.3 [facility] Comment on above: Performed By: #### 1 0231, 7600 #### [facility] of [address], [address] [place] [address] Importer Or Exporter: Clarence Burnett MD Protein [Mass/Vol] 7.0 g/dL Normal 6.1-8.1 [facility] Comment on above: Performed By: #### 1 0231, 7600 #### [facility] of [address], [address] [place] [address] Importer Or Exporter: Clarence Burnett MD Sodium [Moles/Vol] 138 mmol/L Normal 135-146 [facility] Comment on above: Performed By: #### 1 023, 7600 #### [facility] of [address], [address] [place] [address] Importer Or Exporter: Clarence Burnett MD Urea nitrogen [Mass/Vol] 16 mg/dL Normal 7-25 [facility] Comment on above: Performed By: #### 1 023, 7600 #### [facility] of [place] [address] Importer Or Exporter: Clarence Burnett MD LIPID PANEL, [facility] 04-0 Cholesterol [Mass/Vol] 226 mg/dL High <200 [facility] Comment on above: Order Comment: FASTI NG:NO FASTING: NO Performed By: #### 1 0231, 7600 #### [facility] of [place] [address] Importer Or Exporter: Clarence Burnett MD Cholesterol in HDL [Mass/Vol] 52 mg/dL Normal > OR = 50 [facility] Comment on above: Order Comment: FASTI NG:NO FASTING: NO Performed By: #### 1 0231, 7600 #### [facility] of [place] [address], [address] [place] [address] Importer Or Exporter: Clarence Burnett MD Cholesterol in LDL [Mass/Vol] [...] equation in the estimation of LDL-C. Suman SS et al. AMADO. 2013;310(19): 1049-8047 (http://education.[employer]/faq/RGZ183) Performed By: #### 1 023, 6610 #### [facility] [address], [address] [place] [address] Importer Or Exporter: Clarence Burnett MD Cholesterol.total/ Cholesterol in HDL [Mass ratio] 4.3 {ratio} Normal <5.0 [facility] Comment on above: Order Comment: FASTI NG:NO FASTING: NO Performed By: #### 1 0231, 7600 #### [facility] [place] [address] Importer Or Exporter: Clarence Burnett MD NON HDL CHOLESTEROL 174 mg/dL (calc) High <130 [facility] Comment on above: Order Comment: FASTI NG:NO FASTING: NO Result Comment: For patients with diabetes plus 1 major ASCVD risk factor, treating to a non-HDL-C goal of <100 mg/dL (LDL-C of <70 mg/dL) is considered a therapeutic option. Performed By: #### 1 0231, 7600 #### [facility] [place] [address] Importer Or Exporter: Clarence Burnett MD Triglyceride [Mass/Vol] 354 mg/dL High <150 [facility] Comment on above: Order Comment: FASTI NG:NO FASTING: NO Result Comment: If a non-fasting specimen was collected, consider repeat triglyceride testing on a fasting specimen if clinically indicated. Huber et al. J. of Clin. Lipidol. 2015;9:129-169. Performed By: #### 1 0231, 7600 #### [facility] [address] [facility], [address] [place] [address] Importer Or Exporter: Clarence Burnett MD CoV-2 PCRon 06-01-2021 Employed in healthcare? Unknown Normal [facility] Comment on above: Performed By: #### C [id number] #### [address] [address] Group care resident? Unknown Normal [facility] Comment on above: Performed By: #### C [id number] #### [address] [address] In ICU? Unknown Normal [facility] Comment on above: Performed By: #### C [id number] #### [address] [address] status? Unknown Normal [facility] Comment on above: Performed By: #### C [id number] #### [address] [address] SARS-CoV-2 (COVID-19) RNA HA+probe Ql (Unsp spec) Negative Normal Negative [facility] Comment on above: Result Comment: The 2019 novel coronavirus SARS-CoV-2 target nucleic acids are not detected. The NALDO? SARS-CoV-2 Assay is a qualitative, multiplex, real-time PCR-based in vitro diagnostic test intended for the detection of SARS-CoV-2 nucleic acid in nasopharyngeal swab (ADMINISTRATIVE AIDE) specimens from individuals suspected of having COVID-19. The NALDO? SARS-CoV-2 Assay detects SARS-CoV-2 viral RNA from nasopharyngeal swab (ADMINISTRATIVE AIDE) samples. SARS-CoV-2 RNA is generally detectable in ADMINISTRATIVE AIDE specimens during the acute phase of infection. Positive results are indicative of the presence of SARS-CoV-2 RNA; clinical correlation with patient history and other diagnostic information is necessary to determine patient infection status. Positive results do not rule out bacterial infection or co-infection with other viruses. The agent detected may not be the definite cause of disease. Laboratories within the [facility] and its territories are required to report all positive results to the appropriate public health authorities. Negative results do not preclude SARS-CoV-2 infection and should not be used as the sole basis for patient management decisions. Negative results must be combined with clinical observations, patient history, and epidemiological information. The NALDO? SARS-CoV-2 Assay is intended for use on [employer] by trained clinical laboratory personnel who are specifically instructed and trained in in vitro diagnostic procedures. This NALDO SARS-CoV-2 Assay has been modified from the machine engraver?s instructions to allow for nasal swab (anterior Nares) collection. An independent bridging study for nasal swab collection was performed by [facility], a [place] laboratory certified [...] sooner. Fact sheet for Health Care Providers: https://www.fda.gov/media/174531/download Fact sheet for Patients: https://www.fda.gov/media/048774/download Performed By: #### C [id number] #### [address] [address] SARS-CoV-2 (COVID-19) RNA HA+probe Ql (Unsp spec) Unknown Normal [facility] Comment on above: Performed By: #### C [id number] #### [address] [address] Symptomatic as defined by CDC? Unknown Normal [facility] Comment on above: Performed By: #### C [id number] #### [address] [place] [address] [facility]on SARS-CoV-2 (COVID-19) RNA HA+probe Ql (Unsp spec) Detected Critically abnormal NOT DETECTED [facility] Comment on above: Result Comment: This test is not yet approved or cleared by the [place] FDA. When there are no FDA-approved or cleared tests available, and other criteria are met, FDA can make tests available under an emergency access mechanism called an Emergency Use Authorization (EUA). The EUA for this test is supported by the Microbiological Laboratory Technician of Health and Human Service's (HHS's) declaration [...] longer be used). Performed By: #### C VDTB #### [facility] [address] [place], [place] [address] Dr. Lashay Nesbitt TSH W/REFLEX TO FT4on 2020 TSH W/REFLEX TO FT4 1.12 mIU/L Normal [facility] Comment on above: Result Comment: Refe rence Range > or = 20 Years 0.40-4.50 Ranges First trimester 0.26-2.66 Second trimester 0.55-2.73 Third trimester 0.43-2.91 Performed By: #### 3 6127 #### [facility] [address], [address] [place] [address] Importer Or Exporter: Clarence Burnett MD Creatinineon 01-15-2017 Creatinine 0.86 mg/dL Normal 0.50-1.05 [facility] Comment on above: Performed By: #### 1 [id number] ####[facility] [address] [place] [address] eGFR (MDRD) mL/min/{1.73_m2} Normal [facility] Comment on above: Result Comment: Inte rpretation for Chronic Kidney Disease:Stages 1&2 >60 Healthy or potential kidney damage.Mild decrease of GFR.Stage 3 30-59 Moderate decrease of GFR.Stage 4 15-29 Severe decrease of GFR.Stage 5 <15 Kidney failure or on dialysis. Performed By: #### 1 [id number] ####[facility] [address] [place] [address] Electrolyte Panelon 01-16-20 17 Anion gap 14 mmol/L Normal 10-20 [facility] Comment on above: Performed By: #### 1 [id number] ####[facility] [address] [place] [address] Bicarbonate (HCO3) 30 mmol/L Normal 21-32 [facility] Comment on above: Performed By: #### 1 [id number] ####[facility] [address] [place] [address] Chloride 98 mmol/L Normal 98-107 [facility] Comment on above: Performed By: #### 1 735103 ####[facility] [address] [place] [address] Potassium molar conc 3.6 mmol/L Normal 3.5-5.1 [facility] Comment on above: Performed By: #### 1 126317 ####[facility] [address] [place] [address] Sodium 138 mmol/L Normal 136-145 [facility] Comment on above: Performed By: #### 1 899016 ####[facility] [address] [place] [address] Urea Nitrogenon 01-15-2017 Urea nitrogen 16 mg/dL Normal 6-23 [facility] are Comment on above: Performed By: #### 1 [id number] ####[facility] [address] [place] [address] Vital Signs Date Time Vital Sign Value Performing Clinician Facility 04-30-2024 08:51-0500 Body height 157.5 cm Shara SILVERIO Work Phone: [facility] 04-30-2024 08:51-0500 Body mass index (BMI) [Ratio] 20.52 kg/m2 Shara Stapleton PELT SHEARER[employer]K BAND SETTER Work Phone: [facility] [facility] 04-30-2024 08:51-0500 Body temperature 98.01 [degF] Shara Stapleton PELT SHE[employer]K BAND SETTER Work Phone: [facility] 04-30-2024 08:51-0500 Body weight 50.89 kg Shara Stapleton PELT SHE[employer] B[employer]TER Work Phone: [facility] 04-30-2024 08:51-0500 Diastolic blood pressure 90 mm[Hg] Shara Stapleton PELT SHE[employer] B[employer] SETTER Work Phone: [facility] 04-30-2024 08:51-0500 Heart rate 64 /min Shara Stapleton P[employer]T SHE[employer]TER Work Phone: [facility] 04-30-2024 08:51-0500 Respiratory rate 18 /min Shara Stapleton PELT SHE[employer] B[employer] SETTER Work Phone: [facility] 04-30-2024 08:51-0500 SaO2% (BldA) [Mass fraction] 99 % Shara Stapleton P[employer]T SHE[employer] B[employer] SETTER Work Phone: [facility] 04-30-2024 08:51-0500 Systolic blood pressure 130 mm[Hg] Shara Stapleton PELT SHE[employer]ER[employer]ECK B[employer] SETTER Work Phone: [facility] 04-09-2024 11:52-0500 Body height 157.5 cm Shara Stapleton P[employer]T SHE[employer]TER Work Phone: [facility] 04-09-2024 11:52-0500 Body mass index (BMI) [Ratio] 20.43 kg/m2 Shara Stapleton PELT SHE[employer] B[employer]TER Work Phone: [facility] 04-09-2024 11:52-0500 Body temperature 99.7 [degF] Shara Stapleton PELT SHE[employer]K B[employer] SETTER Work Phone: [facility] 04-09-2024 11:52-0500 Body weight 50.67 kg Shara Stapleton APRN-NECK BAND SETTER Work Phone: [facility] 04-09-2024 11:52-0500 Diastolic blood pressure 56 mm[Hg] Shara Stapleton APRN-NECK BAND SETTER Work Phone: [facility] 04-09-2024 11:52-0500 Heart rate 74 /min Shara Stapleton APRN-NECK BAND SETTER Work Phone: [facility] 04-09-2024 11:52-0500 Respiratory rate 18 /min Shara Stapleton APRN-NECK BAND SETTER Work Phone: [facility] 04-09-2024 11:52-0500 SaO2% (BldA) [Mass fraction] 96 % Shara Stapleton APRN-NECK BAND SETTER Work Phone: [facility] 04-09-2024 11:52-0500 Systolic blood pressure 126 mm[Hg] Shara Stapleton APRN-NECK BAND SETTER Work Phone: [facility] 05-21-2023 12:02-0500 Body height 157.5 cm Shayla Ho PELT SHEARER[employer]OLD [employer]ER [employer]ING Work Phone: [facility] 05-21-2023 12:02-0500 Body mass index (BMI) [Ratio] 21.62 kg/m2 Shayla Ho PELT SHEARER-GOLD MINER BLASTING Work Phone: [facility] [employer] [facility] 05-21-2023 12:02-0500 Body temperature 98.01 [degF] Shayla Ho PELT SHEARER-GOLD MINER BLASTING Work Phone: [facility] [employer] [facility] 05-21-2023 12:02-0500 Body weight 53.62 kg Shayla Ho PELT SHEARER-GOLD [employer]ING Work Phone: [facility] [employer] [facility] 05-21-2023 12:02-0500 Diastolic blood pressure 70 mm[Hg] Shayla Ho APRN-GOLD MINER BLASTING Work Phone: [facility] [employer] [facility] 05-21-2023 12:02-0500 Heart rate 64 /min Shayla Kuns PELT SHEARER-GOLD [employer]ING Work Phone: [employer] 05-21-2023 12:02-0500 SaO2% (BldA) [Mass fraction] 96 % Shayla Ho APRN-GOLD MINER [employer]ING Work Phone: [employer] 05-21-2023 12:02-0500 Systolic blood pressure 118 mm[Hg] Shayla BRIZUELAP Work Phone: [employer] 10-05-2021 12:00-0400 Body height 157.48 cm Cindy Avila Other [employer] Other 10-05-2021 12:00-0400 Body mass index (BMI) [Ratio] 22.86 kg/m2 Cindy Avila Other [employer] Other 10-05-2021 12:00-0400 Body temperature 98.1 [degF] Cindy Avila Other [employer] Other 10-05-2021 12:00-0400 Body weight 56.7 kg Cindy Avila Other [employer] Other 10-05-2021 12:00-0400 Diastolic blood pressure 68 mm[Hg] Cindy Avila Other [employer] Other 10-05-2021 12:00-0400 Respiratory rate 18 /min Cindy Avila Other [employer] Other 10-05-2021 12:00-0400 SaO2% (BldA) [Mass fraction] 99 % Cindy Avila Other [employer] Other 10-05-2021 12:00-0400 Systolic blood pressure 103 mm[Hg] Cindy Avila Other [employer] Other 02-09-2021 11:15-0400 Body height 157.48 cm Araceli Min Other [employer] Other 02-09-2021 11:15-0400 Body mass index (BMI) [Ratio] 21.03 kg/m2 Araceli Min Other [employer] Other 02-09-2021 11:15-0400 Body temperature 97.2 [degF] Araceli Min Other [employer] Other 02-09-2021 11:15-0400 Body weight 52.16 kg Araceli Min Other [employer] Other 02-09-2021 11:15-0400 Respiratory rate 18 /min Araceli Min Other [employer] Other 02-09-2021 11:15-0400 SaO2% (BldA) [Mass fraction] 97 % Araceli Min Other [employer] Other Encounters Encounter Date Encounter Type Care Provider Facility Start: 04-30-2024 End: 04-30-2024 Office outpatient visit 15 minutes Shara Stapleton PELT SHEARER-NECK BAND SETTER Work Phone: [facility] Internal Medicine - Family Medicine Comment on above: Mid-back pain, acute (Primary Dx); Smoking; Renal mass Start: 04-30-2024 End: 04-30-2024 ambulatory SHARA Cruz [facility] Start: 04-26-2024 End: 04-28-2024 Refill Shara Stapleton PELT SHEARER-NECK BAND SETTER Work Phone: [facility] Internal Medicine - Family Medicine Start: 04-26-2024 End: 04-27-2024 Telephone encounter Wanda Flores FIXER [employer]ARDING ROOM [facility] - Family [facility] Start: 04-22-2024 End: 04-22-2024 Orders Only Shara Stapleton PELT SHEARER-NECK BAND SETTER Work Phone: [facility] - [facility] Comment on above: Encounter for screen ing mammogram for malignant neoplasm of breast (Primary Dx) Start: 04-21-2024 End: 04-21-2024 ambulatory [facility] Start: 04-12-2024 End: 04-12-2024 Orders Only Shara Cruz Surekha PELT SHEARER-NECK BAND SETTER Work Phone: [facility] - [facility] Comment on above: Encounter for screen ing mammogram for malignant neoplasm of breast (Primary Dx) Start: 04-09-2024 End: 04-09-2024 Office outpatient visit 15 minutes Shara Stapleton PELT SHEARER-NECK BAND SETTER Work Phone: [facility] Comment on above: Influenza A (Primary Dx); Fever, unspecified fever cause; Smoking Start: 04-09-2024 End: 04-09-2024 ambulatory [facility] Start: 03-24-2024 End: 03-29-2024 Merari Rosas DO Work Phone: [facility] Start: 06-02-2023 Orders Only Shayla Ho PELT SHEARER-GOLD [employer] BLASTING Work Phone: [facility] Start: 05-27-2023 Orders Only Shayla Ho PELT SHEARER-GOLD [employer]ER BLASTING Work Phone: [facility] Start: 05-21-2023 End: 05-21-2023 ambulatory [facility] Start: 05-21-2023 End: 05-21-2023 Office outpatient visit 15 minutes Shayla Ho PELT SHEARER-GOLD MINER BLASTING Work Phone: [facility] Comment on above: Chest wall pain (Lu shayla Dx); Herpes zoster with complication Start: 10-05-2021 End: 10-05-2021 ambulatory Cindy Avila Other [facility] [employer] Other Start: 10-05-2021 Office outpatient vi sit 15 minutes Cindy Avila [facility] Start: 06-01-2021 End: 06-02-2021 ambulatory JHON ROSAS Facility:[facility] Start: 04-19-2021 End: 04-19-[address] JHON Christopher [facility] Facility: Start: 02-09-2021 Office outpatient ne w 20 minutes Araceli Min [facility] Start: 01-15-2017 Ambulatory DINORA KIRNUS Facility :[id number] Start: 01-15-2017 Ambulatory Jasmin Son [facility] Facil [id number] Start: 12-18-2016 Ambulatory DINORA KIRNUS Facility :[id number] Start: 12-18-2016 Ambulatory Jasmin Son [facility] Facil [id number] Procedures Date Procedure Procedure Detail Performing Clinician Start: 04-21-2024 Mammography Sharamarlon Ag jagruti PELT SHEARER-NECK BAND SETTER Work Phone: Start: 04-09-2024 POCT INFLUENZA A/INF LUENZA B/SARS-COV-2 VERITOR Shara L Surekha PELT SHEARER-NECK BAND SETTER Work Phone: Start: 04-09-2024 Adult depression scr eening assessment Shara Stapleton PELT SHEARER-NECK BAND SETTER Work Phone: Start: 05-21-2023 Adult depression scr eening assessment Shayla Ho PELT SHEARER-GOLD [employer]ER [employer]ING Work Phone: Start: 07-03-2022 Mammography Shayla Ho PELT SHEARER-GOLD [employer]ING Work Phone: Plan of Treatment Date Care Activity Detail Author Start: 04-30-2025 Adult BMI Screening Adult BMI Screen ing [facility] Start: 04-30-2025 Tobacco Screening Tobacco Screening [facility] Start: 04-21-2025 Adult BMI Screening Adult BMI Screen ing [facility] Start: 04-21-2025 Screening for malign ant neoplasm of breast Mammogram [facility] Start: 04-09-2025 Adult BMI Screening Adult BMI Screen ing [facility] Start: 04-09-2025 Depression Screening Depression Scre ening [facility] Start: 04-09-2025 Tobacco Screening Tobacco Screening [facility] Start: 12-15-2024 End: 12-15-2024 Patient encounter procedure 12/15/2024 8:30 AM EDT Appointment [facility] Nuclear Medicine [address] [place] [address] [facility] Nuclear Medicine Start: 05-21-2024 Adult BMI Screening Adult BMI Screen ing [facility] Start: 05-21-2024 Depression Screening Depression Scre ening [facility] Start: 05-21-2024 Tobacco Screening Tobacco Screening [facility] Start: 05-13-2024 End: 05-13-2024 Patient encounter procedure 05/13/2024 1:00 PM EST [facility] [address] [place] [address] Shara Stapleton, PELT SHEARER-NECK BAND SETTER [address] [place] [address] [facility] Start: 04-30-2024 End: 04-30-2025 MR Abdomen WO and W contrast IV MR abdomen with and without contrast Imaging Routine Renal mass Expected: 04/30/2024, Expires: 04/30/2025 [facility] Work Phone: Comment on above: Expected: 04/30/2024 , Expires: 04/30/2025 Start: 04-30-2024 End: 04-30-2024 Patient encounter procedure 04/30/2024 9:00 AM EST Office [facility] [address] [place] [address] Shara Stapleton, PELT SHEARER-NECK BAND SETTER [address] [place] [address] [facility] Start: 04-22-2024 End: 04-22-2025 NM Guidance limited for localization of tumor NM Molecular breast imaging localization limited area Imaging Routine Encounter for screening mammogram for malignant neoplasm of breast Expected: 04/22/2024, Expires: 04/22/2025 [employer] Work Phone: Comment on above: Expected: 04/22/2024 , Expires: 04/22/2025 Start: 04-21-2024 End: 04-21-2024 Patient encounter procedure 04/21/2024 2:00 PM EST Appointment [facility] - Mammography/DEXA Imaging [address] [place] [address] [facility] - [facility]amm[facility] Start: 04-12-2024 End: 04-12-2025 DBT Breast - bilateral screening Mammography screening bilateral with CAD Imaging Routine Encounter for screening mammogram for malignant neoplasm of breast Expected: 04/12/2024, Expires: 04/12/2025 [facility] Work Phone: Comment on above: Expected: 04/12/2024 , Expires: 04/12/2025 Start: 12-15-2023 Tobacco Counseling Tobacco Counselin g [facility] Start: 12-14-2023 Influenza vaccination Influenza Vacc ine [facility] Start: 08-30-2023 Administration of varicella zoster vaccine Zoster (Shingles) Vaccine (1 of 2) [facility] Comment on above: Postponed from 02/03 (Patient Refused) Start: 08-30-2023 Adult BMI Screening Adult BMI Screen ing [facility] Start: 08-30-2023 Depression Screening Depression Scre ening [facility] Start: 08-30-2023 DTaP,Tdap and Td Vac cines (1 - Tdap) DTaP,Tdap and Td Vaccines (1 - Tdap) [facility] Comment on above: Postponed from 02/03 (Patient Refused) Start: 08-30-2023 Tobacco Screening Tobacco Screening [facility] Start: 08-13-2023 Screening for malign ant neoplasm of cervix Pap Smear [facility] Comment on above: Postponed from 02/03 (Not Indicated) Start: 07-04-2023 Screening for malign ant neoplasm [facility] Start: 12-13-2022 Influenza vaccination Influenza Vacc ine [facility] [employer] Start: 2015 Administration of varicella zoster vaccine Zoster (Shingles) Vaccine (1 of 2) [facility] Start: 2010 Screening for malign ant neoplasm of colon Colon Cancer Screening 3 [facility] Start: 1986 Screening for malign ant neoplasm of cervix Pap Smear [facility] [employer] Start: 02-04-1984 DTaP,Tdap and Td Vac cines (1 - Tdap) DTaP,Tdap and Td Vaccines (1 - Tdap) [facility] [employer] Start: 1965 Tobacco Counseling Tobacco Counselin g [facility] [facility] End: 04-30-2025 Basic metabolic 2000 panel - Serum or Plasma Basic Metabolic Panel Lab Routine Renal mass 1 Occurrences starting 04/30/2024 until 04/30/2025 [facility] [employer] [facility] Comment on above: 1 Occurrences starti ng 04/30/2024 until 04/30/2025 Payers Date Payer Category Payer Unknown 2020 Managed Care Other (unspecified) [employer] [id number] 2020 Private Health Insurance [facility] [employer] [id number] 2020-Present [phone] [address] [address] [place] [address] [id number] 2020 Unknown [id number] 1965 Unknown [id number] 1965 Unknown [id number] 1965 Unknown [id number] 1965 Unknown [id number] 1965 Unknown [id number] 1965 Unknown [id number] 1959 Unknown [id number] Social History Date Type Detail Facility Start: 05-25-2020 End: 05-21-2023 Sex Assigned At [facility] Start: 08-29-2022 [facility] History of tobacco use Cigarette Smoker P [facility] Start: 05-25-2020 End: 08-29-2022 Cigarettes smoked current (pack per day) - Reported 0.5 [facility] Start: 08-29-2022 Tobacco use and exposure Smokeless tobacco non-user [facility] Start: 05-21-2023 End: 04-30-2024 Alcohol intake Current drinker of alcohol (finding) [facility] Adolescent depressio n screening assessment 0 [facility] Start: 1965 Sex Assigned At Not on file P [facility] Start: 11-17-2014 Sex Female (finding) [facility] Clinical Notes 02-09-2021 to 04-30-2024 NUSRAT Gardner - 04/30/2024 9:00 AM ESTTelephone Encounter - Wanda Flores CMA - 04/26/2024 12:36 PM ESTTelephone Encounter - NUSRAT Gardner - 04/26/2024 12:36 PM EST Note Date & Type Note Facility 04-30-2024 History of Presen t illness Narrative [address] [place] [address] Patient: Anaya Serrano Date of : 1965 Encounter Date: 04/30/2024 History of Present Illness: The patient is a 59 y.o. female, an established patient, and is here for Chief Complaint Patient presents with Back Pain [facility] er . HPI Friday patient went to [facility] for increasingly worsening mid back pain for 1-1/2 weeks prior. She denies a specific injury or trauma that would have caused this back pain. She left work early to go to the chiropractor but end up driving herself to the ER because the pain was intense. She also complains of some numbness and tingling to the top of her left thigh down to the top of her left foot. NSAIDs were not helping with her pain. Patient was given muscle relaxants, Elloree, Toradol in the ER and her back pain did improve. Incidentally on CT it was found that she had a renal mass that needs further investigation with a contrast MRI. Patient denies any significant weakness or falling or loss of bowel or bladder control with the pain in her back. 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 Problem List Items Addressed This Visit Other Smoking Other Visit Diagnoses Mid-back pain, acute - Primary Renal mass Relevant Orders MR abdomen with and without contrast Basic Metabolic Panel Past Medical, Family, and Social History Update: The following portions of the patient's history were reviewed and updated as appropriate: allergies, current medications, past family history, past medical history, past social history, past surgical history and problem list. Past Medical History: Diagnosis Date Hypertension Past Surgical History: Procedure Laterality Date APPENDECTOMY HERNIA REPAIR HYSTERECTOMY Current Outpatient Medications Medication Sig Dispense Refill metoprolol succinate XL (TOPROL XL) 50 mg 24 hr tablet TAKE 1 TABLET BY MOUTH IN THE MORNING 90 tablet 1 ondansetron ODT (ZOFRAN ODT) 4 mg disintegrating tablet Dissolve 1 tablet (4 mg total) on tongue every 8 (eight) hours as needed for nausea or vomiting. 20 tablet 0 baclofen (LIORESAL) 10 mg tablet Take 1 tablet (10 mg total) by mouth in the morning and 1 tablet (10 mg total) before bedtime. 60 tablet 1 ibuprofen (MOTRIN) 800 mg tablet Take 1 tablet (800 mg total) by mouth every 8 (eight) hours as needed for pain. 30 tablet 1 No current facility-administered medications for this visit. [...] Review of Systems: Review of Systems Constitutional: Negative for activity change, appetite change and unexpected weight change. Respiratory: Negative. Cardiovascular: Negative. Genitourinary: Negative. Musculoskeletal: Positive for back pain, gait problem and myalgias. Psychiatric/Behavioral: Negative. Physical Exam: BP 130/90 (BP Site: Left Arm, BP Postition: Sitting) Pulse 64 Temp 36.7 C (98 F) (Oral) Resp 18 Ht 157.5 cm (5' 2 ) Wt 50.9 kg (112 lb 3.2 oz) SpO2 99% BMI 20.52 kg/m Physical Exam Vitals reviewed. Tub Wash Operator present: here with ex-. Constitutional: Appearance: Normal appearance. She is well-developed. HENT: Head: Normocephalic and atraumatic. Nose: Nose normal. Eyes: Pupils: Pupils are equal, round, and reactive to light. Cardiovascular: Rate and Rhythm: Normal rate and regular rhythm. Heart sounds: Normal heart sounds. No murmur heard. Pulmonary: Effort: Pulmonary effort is normal. No respiratory distress. Breath sounds: Normal breath sounds. No wheezing. Abdominal: General: Bowel sounds are normal. Palpations: Abdomen is soft. Tenderness: There is no abdominal tenderness. There is left CVA tenderness. Musculoskeletal: General: Normal range of motion. Cervical back: Neck supple. Lumbar back: No tenderness or bony tenderness. Normal range of motion. Negative right straight leg raise test and negative left straight leg raise test. Right lower leg: No edema. Left lower leg: No edema. Lymphadenopathy: Cervical: No cervical adenopathy. Skin: General: Skin is warm and dry. Capillary Refill: Capillary refill takes less than 2 seconds. Findings: No rash. Neurological: General: No focal deficit present. Mental Status: She is alert and oriented to person, place, and time. Cranial Nerves: No cranial nerve deficit. Sensory: Sensory deficit (left anterior thigh to top of left foot numbness) present. Deep Tendon Reflexes: Reflex Scores: Patellar reflexes are 2+ on the right side and 2+ on the left side. Achilles reflexes are 2+ on the right side and 2+ on the left side. Psychiatric: Mood and Affect: Mood normal. Assessment and Plan: Anaya was seen today for back pain. Diagnoses and all orders for this visit: Mid-back pain, acute Smoking Renal mass - MR abdomen with and without contrast; Future - Basic Metabolic Panel; Future Other orders - baclofen (LIORESAL) 10 mg tablet; Take 1 tablet (10 mg total) by mouth in the morning and 1 tablet (10 mg total) before bedtime. - ibuprofen (MOTRIN) 800 mg tablet; Take 1 tablet (800 mg total) by mouth every 8 (eight) hours as needed for pain. Follow-up: Patient has thoracic back pain that is inconsistent with the neurologic deficit she is experiencing in her leg. Stop the Elloree, Toradol and methocarbamol as given in the ER and switch to baclofen, Motrin 800 every 8 hours as needed with food. She may also use lidocaine patches to her back. She does not want physical therapy or exercises or anything further for her back pain at this time because she is worried about the incidental finding of renal mass and would like this addressed 1st. Obtain MRI with contrast at the [facility] as well as kidney function prior. Patient is not ready to quit smoking despite knowing negative health consequences. Follow-up in 2 weeks to review results of MRI and recheck back pain. NUSRAT GARDNER APRN-CNP 05/04/24 1003 [facility] Miscellaneous Notes Formattin g of this note might be different from the original. Patient was in ER and they wanted her to Follow up with you candido. Where would you like me to fit her in at? Friday documented in this encounter [facility] 04-26-2024 Telephone encount er Note Patient was in ER and they wanted her to Follow up with you candido. Where would you like me to fit her in at? [facility] 04-26-2024 Telephone encount er Note Friday [facility] 04-09-2024 History of Presen t illness Narrative [address] [place] [address] Patient: Anaya Serrano Date of : 1965 [...] came from work - she works at [employer]. Problem List Items Addressed This Visit Other [...] APRN-CNP 04/09/24 1409 documented in this encounter [facility] 03-24-2024 Miscellaneous Notes Formattin g of this note might be different from the original. She is overdue for appt- I'll give temp supply documented in this encounter [facility] 03-24-2024 Telephone encount er Note She is overdue for appt- I'll give temp supply [facility] 05-21-2023 History of Presen t illness Narrative [...] Alexander 05/21/23 1335 documented in this encounter [facility] 10-05-2021 Evaluation note Encounter Date Diagnosis Assessment [...] to only the absolute essential needed assessments. [employer] Other 10-29-2021 Evaluation note* Encounter Date Diagnosis [...] no improvement in 2 to 3 days. [employer] Other Evaluation note* Diagnosis Chest wall pain- Primary Painful respiration Herpes zoster with complication documented in this encounter [facility] Diagnosis Influenza A- Primary Influenza with other respiratory manifestations Fever, unspecified fever cause Smoking Tobacco use disorder documented in this encounter [facility] Diagnosis Encounter for screening mammogram for malignant neoplasm of breast- Primary [facility] Diagnosis Encounter for screening mammogram for malignant neoplasm of breast- Primary documented in this encounter [facility] Diagnosis Mid-back pain, acute- Primary Smoking Tobacco use disorder Renal mass Unspecified disorder of kidney and ureter [facility] - [facility]* Type Description Date Medical History HTN [employer] Other InstructionsNot on filedocumented in this encounter [...] section and content) DATE CREATED AUTHOR 10/07/2017 [facility] DATE CREATED AUTHOR AUTHOR'S ORGANIZ ATION 10/08/2017 [facility] DATE CREATED AUTHOR AUTHOR'S ORGANIZ ATION 04/26/2021 [facility] DATE CREATED AUTHOR AUTHOR'S ORGANIZ ATION 06/02/2021 [facility] DATE CREATED AUTHOR AUTHOR'S ORGANIZ ATION 07/15/2021 [facility] DATE CREATED AUTHOR AUTHOR'S ORGANIZ ATION 04/27/2024 [facility] DATE CREATED AUTHOR AUTHOR'S ORGANIZ ATION 05/03/2024 [facility] REASON FOR VISIT (unrecogniz ed section and content) Reason Comments Chest Pain Er/ needs note Reason Comments Med Refill Reason Comments Sinus Problem Reason Comments Back Pain TB er Care Teams (unrecognized sec tion and content) Sole Edge Inker Machine Relationship Specialty Start Date End Date Jhon Rosas DO [address] [facility], [place] [address] PCP - General Family Medicine 11/08/19 [employer] Relationship Specialty Start Date End Date Jhon Rosas DO [address] [place] [address] PCP - General Family Medicine 11/08/19 S[employer] Edge Inker Machine Relationship Specialty Start Date End Date Jhon Rosas DO [address] [place] [address] PCP - General Family Medicine 11/08/19 S[employer] Edge Inker Machine Relationship Specialty Start Date End Date Jhon Rosas DO [address] [place] [address] PCP - General Family Medicine 11/08/19 Sole Edge Inker Machine Relationship Specialty Start Date End Date Jhon Rosas DO [address] [place] [address] PCP - General Family Medicine 11/08/19 Sole Edge Inker Machine Relationship Specialty Start Date End Date Jhon Rosas DO [address] [place] [address] PCP - General Family Medicine 11/08/19 Sole Edge Inker Machine Relationship Specialty Start Date End Date Jhon Rosas DO [address] [place] [address] PCP - General Family Medicine 11/08/19 Sole Edge Inker Machine Relationship Specialty Start Date End Date BrienninoskaJhon block DO [address] [place] [address] PCP - General Family Medicine 11/08/19 Sole Edge Inker Machine Relationship Specialty Start Date End Date RalphJhonDO [address], [place] [address] PCP - General Family Medicine 11/08/19 FOR RECORDS PERTAINING TO PATIENTS WHO [...] BE BASED ON THE PRIMARY CLINICAL RECORDS. [facility] [employer] provides no warranty or guarantee of the accuracy or completeness of information in this document.
--- NOTE | 2024-05-07 06:56 | MR_ITS ---
The [address] [address] Patient Name: VEENA BUENO MRN: [id number] date: 1965 Sex: F Assigned Patient Location: LAB Current Patient Location: Accession/Order Number: [id number] Exam Date: 05/07/2024 07:00 Report Date: 05/10/2024 08:59 At the request of: SHARA STAPLETON Procedure: MR abdomen wo/w con EXAMINATION: MR abdomen wo/w con HISTORY: Renal Mass COMPARISON: No relevant comparison available. TECHNIQUE: A comprehensive MRI examination of the abdomen was performed to optimize visualization of suspected pathology. Images were obtained with and/or without intravenous Dotarem contrast as indicated by exam type. FINDINGS: LIVER: No enlargement, atrophy, abnormal signal, or significant focal lesion. BILIARY: No visible dilatation or calcification. PANCREAS: No lesion, fluid collection, ductal dilatation, or atrophy. SPLEEN: No enlargement or focal lesion. KIDNEYS: 1.4 cm rounded lesion projecting medially from the superior pole of the right kidney. This demonstrates mixed T1 and T2 signal, but no appreciable enhancement. ADRENALS: No mass or enlargement. AORTA/VASCULAR: No aneurysm or dissection. RETROPERITONEUM: No mass or adenopathy. BOWEL/MESENTERY: No visible mass, obstruction, or bowel wall thickening. ABDOMINAL WALL: No mass or hernia. BONES: No bony lesion or fracture. LUNG BASES: No visible pleural disease. Lung bases not well assessed with MRI. OTHER: Negative. MR/MR abdomen wo/w con IMPRESSION: 1. Right kidney 1.4 cm nonspecific lesions; suspected represent complex cysts, however, neoplasm cannot be completely excluded. Consider 3 month follow-up additional evaluation with CT abdomen without and with IV contrast for better evaluation of enhancement characteristics and to document stability. Alternatively, ultrasound evaluation could be performed. Electronically authenticated by: LALITO GRAHAM Date: 05/10/2024 08:59
[2024-05-07 07:02] LABS: Anion Gap 10.2; BUN Creatinine Ratio 9.2; Calcium 9.3 mg/dL (8.5-10.1); Carbon Dioxide 29.4 mmol/L (21.0-32.0); Chloride 106 mmol/L (98-107); Estimated GFR (African America >60 (>=60 mL/min/1.73m^2); Estimated GFR (Non-African Ame 58 (>=60 mL/min/1.73m^2); Glucose 123 mg/dL (74-106); Potassium 3.6 mmol/L (3.5-5.1); Sodium 142 mmol/L (136-145)
== END 2024-05-07 06:43 | disposition home or self-care (01) ==
LOC: LAB 06:42
PROVIDERS: PCP Family Medicine; Visit Provider Nurse Practitioner Family
DX: N28.89 Other specified disorders of kidney and ureter (principal)
CPT/HCPCS: 36415; 74183; 80048; A9575

== ENCOUNTER 2024-06-23 10:43 | Emergency (ER) | payer OTHER, SELFPAY ==
[2024-06-23 10:49] VITALS: BP 144/99; PULSE 101; TEMP 36.7; O2SAT 97; BMI 21.9
--- OUTSIDE RECORDS SUMMARY | 2024-06-23 11:05 | XMS_ITS | CCD ---
Author Organization [facility] Care Team Providers Care Asparagus Buncher Name Role Phone KIRNUS, DINORA Unavailable Unavailable [...] Admitting Unavailable JHON ROSAS Attending Unavailab le FURLOJHON BLOCK Primary Care Unavailab le Araceli Min Unavailable Austin Cindy Unavailable Jhon Rosas DO Primary Care Provider SHARA STAPLETON Referring Unavailable FURLOJHON BLOCK Primary Care Unavailable SHARA STAPLETON Attending Unavailable JHON ROSAS Referring Unavailable BRIENLOJHON BLOCK Primary Care Unavailable SHAYLA HO Attending Unavailable JHON ROSAS Referring Unavailable BRIENLOJHON BLOCK Primary Care Unavailable SHARA STAPLETON Attending Unavailable JHON ROSAS Referring Unavailable FURLOJHON BLOCK Primary Care Unavailable SHARA STAPLETON Attending Unavailable BRIENLOJHON BLOCK Referring Unavailable FURLOJHON BLOCK Primary Care Unavailable SHARA STAPLETON Referring Unavailable BRIENLOJHON BLOCK Primary Care Unavailable Medications Current Medications Medication Drug Class(es) Dates Sig (Normalized) Sig (Original) atorvastatin 10 mg oral tablet (2 sources) HMG-CoA Reductase Inhibitor Start: 05-17-2024 take 1 tablet by mouth in the morning atorvastatin (LIPITOR) 10 mg tablet Take 1 tablet (10 mg total) by mouth in the morning. 90 tablet 1 05/17/2024 Active baclofen 10 mg oral tablet (7 sources) gamma-Aminobutyri c Acid-ergic Agonist Start: 04-30-2024 End: 05-31-2024 take 1 tablet by mouth twice daily at bedtime baclofen (LIORESAL) 10 mg tablet TAKE 1 TABLET BY MOUTH TWICE DAILY (IN THE MORNING and BEFORE bedtime) 60 tablet 1 05/31/2024 Active Cortisporin Otic 1%-0.35%-1000 units/ml (1 source) Start: 02-09-2021 Cortisporin Otic 1%-0.35%-1000 units/ml 3 drops right ear tid for 7 days Jan, Active famotidine 20 mg oral tablet (10 sources) Histamine-2 Receptor Antagonist Start: 05-13-2024 take 1 tablet by mouth in the morning, then take 1 tablet by mouth at bedtime, then take 1 tablet by mouth in the morning, then take 1 tablet by mouth at bedtime famotidine (PEPCID) 20 mg tablet Take 1 tablet (20 mg total) by mouth in the morning and 1 tablet (20 mg total) before bedtime. TAKE 1 TABLET BY MOUTH IN THE MORNING AND 1 TABLET BEFORE BEDTIME. 60 tablet 1 05/13/2024 Active Start: 08-08-2022 End: 04-09-2024 take 1 tablet by mouth in the morning famotidine (PEPCID) 20 mg tablet take 1 tablet by mouth IN THE MORNING and 1 tablet BEFORE BEDTIME 60 tablet 1 08/08/2022 04/09/2024 Discontinued (Therapy completed) gabapentin 100 mg oral capsule (3 sources) Anti-epileptic Agent Start: 05-13-2024 take 1 capsule by mouth once daily as needed gabapentin (NEURONTIN) 100 mg capsule Indications: Post herpetic neuralgia Take 1 capsule (100 mg total) by mouth daily as needed (postherpatic neuralgia). 30 capsule 1 05/13/2024 Active hydroCHLOROthiazide (2 sources) Thiazide Diuretic hydroCHLOROthi azide Active ibuprofen 800 mg oral tablet (19 sources) Nonsteroidal Anti-inflammatory Drug Start: 05-19-2023 End: 05-31-2024 take 1 tablet by mouth every eight hours as needed for pain ibuprofen (MOTRIN) 800 mg tablet TAKE 1 TABLET BY MOUTH EVERY 8 HOURS NEEDED FOR PAIN 30 tablet 1 05/31/2024 Active Lisinopril (2 sources) Angiotensin Converting Enzyme Inhibitor Lisinopril Active Meclizine (2 sources) Antiemetic Meclizine HCl Ac tive 24 hr metoprolol succinate 50 mg extended release oral tablet (20 sources) beta-Adrenergic Christiano Start: 04-28-2024 take 1 tablet by mouth every twenty-fou r hours in the morning metoprolol succinate XL (TOPROL XL) 50 mg 24 hr tablet TAKE 1 TABLET BY MOUTH IN THE MORNING 90 tablet 1 04/28/2024 Active Start: 03-29-2024 take 1 tablet by tad th once daily in the morning metoprolol succinate XL (TOPROL XL) 50 mg 24 hr tablet TAKE 1 TABLET BY MOUTH EVERY MORNING 30 tablet 03/29/2024 Active Start: 11-11-2022 End: 04-28-2024 take 1 tablet by mouth once daily in the morning metoprolol succinate XL (TOPROL XL) 50 mg 24 hr tablet TAKE 1 TABLET BY MOUTH EVERY MORNING 30 tablet 03/29/2024 04/28/2024 Discontinued ondansetron 4 mg disintegrating oral tablet (11 sources) Serotonin-3 Receptor Antagonist Start: 04-09-2024 take [...] 6 hours for 10 days Sep, Active sod sulf-pot chloride-mag sulf 1.479-0.188- 0.225 gram tablet (1 source) Start: 05-31-2024 sod sulf-pot chloride-mag sulf 1.479-0.188- 0.225 gram tablet Indications: Colon cancer screening Take 12 tablets twice a day as per instructions 24 tablet 05/31/2024 Active valACYclovir 1000 mg oral tablet (2 [...] / codeine phosphate 30 mg oral tablet (7 sources) Opioid Agonist Start: 05-19-2023 End: 04-09-2024 take 1 tablet by mouth every six hours for pain acetaminophen-codei ne (TYLENOL #3) 300-30 mg per tablet take 1 tablet by mouth every 6 hours if needed for pain for 5 days 05/19/2023 04/09/2024 Discontinued (Therapy completed) acetaminophen 325 mg / HYDROcodone bitartrate 5 mg oral tablet (1 source) Opioid Agonist Start: 04-23-2024 End: 04-30-2024 take 1 tablet by mouth every six hours as needed for pain HYDROcodone-acetami nophen (NORCO) 5-325 mg per tablet TAKE 1 TABLET BY MOUTH EVERY 6 HOURS NEEDED FOR PAIN FOR 3 DAYS 04/23/2024 04/30/2024 Discontinued (Therapy completed) fluticasone propionate 0.05 mg/actuat metered dose nasal spray (8 sources) Corticosteroid Start: 06-13-2022 End: 04-09-2024 take [...] (Therapy completed) predniSONE 20 mg oral tablet (8 sources) Start: 05-21-2023 End: 04-09-2024 predniSONE (DELTASONE) [...] Problem Date Documented Date Episodic/Chronic Essential hypertension (19 sources) Hypertensive disorder; Translations: [Essential (primary) hypertension] Onset: 08-29-2022 08-29-2022 Chronic Essential hypertension (1 source) Essential hypertension Onset: 01-15-2017 Fever of unknown origin (2 sources) Fever; Translations: [Fever, unspecified] Onset: 04-09-2024 04-09-2024 Episodic Influenza (2 sources) Influenza due to Influenza A virus; Translations: [Influenza due to other identified influenza virus with other respiratory manifestations] Onset: 04-09-2024 04-09-2024 Episodic Joint disorders and dislocations; trauma-related (17 sources) Chondromalacia of patella; Translations: [Chondromalacia patellae, unspecified knee] Onset: 06-27-2010 05-02-2022 Chronic Other diseases of kidney and ureters (2 sources) Renal mass; Translations: [Other specified disorders of kidney and ureter] 05-04-2024 Chronic Other screening for suspected conditions (not mental disorders or infectious disease) (5 sources) Patient encounter status; Translations: [Encounter for screening mammogram for malignant neoplasm of breast] Onset: 04-21-2024 04-12-2024 Episodic Other upper respiratory infections (1 source) Acute upper respiratory infection, unspecified; Translations: [ACUTE UP RESPIRATORY INFECTION UNS] Onset: 04-25-2021 Episodic Spondylosis; intervertebral disc disorders; other back problems (5 sources) Acute thoracic back pain; Translations: [Dorsalgia, unspecified] Onset: 04-30-2024 04-30-2024 Episodic Substance-related disorders (20 sources) Smoker; Translations: [Nicotine dependence, unspecified, uncomplicated] Onset: 05-02-2022 04-09-2024 Chronic Unclassified (2 sources) Chest pain, unspecified / R07.9(ICD-9) Onset: 01-15-2017 Unclassified (1 source) Family hx of ischem heart dis and oth dis of the circ sys / Z82.49(ICD-9) Onset: 12-18-2016 Unclassified (1 source) Nicotine dependence, unspecified, uncomplicated / F17.200(ICD-9) Onset: 12-18-2016 Unclassified (2 sources) CONTACT W/AND (SUSP) EXPOS COVID-19; Translations: [CONTACT W/AND (SUSP) EXPOS COVID-19] Onset: 04-25-2021 Unclassified (1 source) Results Onset: 05-13-2024 Unclassified (1 source) Sinus Problem Onset: 04-09-2024 Viral infection (4 sources) Postherpetic neuralgia; Translations: [Other postherpetic nervous system involvement] Onset: 05-21-2023 05-13-2024 Episodic Viral infection (1 source) COVID-19; Translations: [COVID-19] Onset: 04-25-2021 Past or Other Problems Problem Classification Problem Date Documented Date Episodic/Chronic Disorders of teeth and jaw (1 source) Periapical abscess without sinus Onset: 10-05-2021 Resolved: 10-05-2021 Episodic Joint disorders and dislocations; trauma-related (17 sources) Tear of lateral meniscus of knee; Translations: [Other tear of lateral meniscus, current injury, unspecified knee, initial encounter] Onset: 06-27-2010 05-02-2022 Episodic Mood disorders (17 sources) Mood disorders Onset: 04-09-2024 Resolved: 05-13-2024 04-09-2024 Nonspecific chest pain (4 sources) Chest pain, unspecified; Translations: [Other chest pain] Onset: 01-15-2017 05-21-2023 Episodic Other connective tissue disease (17 sources) Patellar tendonitis; Translations: [Patellar tendinitis, unspecified [...] W/AND (SUSP) EXPOS COVID-19] Onset: 04-19-2021 Unclassified (17 sources) Onset: 06-07-2022 06-07-2022 Unclassified (1 source) Patient encounter status 04-22-2024 Results Test Name Value Interpretation Reference Range Facility COMPREHENSIVE METABOLIC PANE Seven 05-13-2024 Albumin [Mass/Vol] 4.3 g/dL Normal 3.2-5.3 [facility] Comment on above: Performed By: #### Quique ROSALES, 90176-4 #### [facility] ([id number]) [address], [address] [place] [address] ALP [Catalytic activity/Vol] 92 U/L Normal 39-[address] [facility] Comment on above: Performed By: #### Quique ROSALES, 35070-3 #### [facility] ([id number]) [address], [address] [place] [address] ALT [Catalytic activity/Vol] 10 U/L Normal 0-[address] [facility] Comment on above: Performed By: #### Quique ROSALES, 96049-3 #### [facility] ([id number]) [address], [address] [place] [address] Anion gap [Moles/Vol] 6 mmol/L Normal 5-[address] [facility] Comment on above: Performed By: #### Quique ROSALES, 61991-8 #### [facility] ([id number]) [address], [address] [place] [address] AST [Catalytic activity/Vol] 13 U/L Normal 0-[address] [facility] Comment on above: Performed By: #### Quique ROSALES, 45186-8 #### [facility] ([id number]) [address], [address] [place] [address] Bilirubin [Mass/Vol] 0.5 mg/dL Normal 0.3-1.[address] [facility] Comment on above: Performed By: #### Quique ROSALES 48752-3 #### [facility] ([id number]) [address], [address] [place] [address] Calcium [Mass/Vol] 9.2 mg/dL Normal 8.5-10.5 [facility] Comment on above: Performed By: #### Quique ROSALES 79162-4 #### [facility] ([id number]) [address], [address] [place] [address] Chloride [Moles/Vol] 107 mmol/L Normal 98-[address] [facility] Comment on above: Performed By: #### Quique ROSALES 42499-0 #### [facility] ([id number]) [address], [address] [place] [address] CO2 [Moles/Vol] 30 mmol/L Normal 22-[address] [facility] Comment on above: Performed By: #### Quique ROSALES 77461-3 #### [facility] ([id number]) [address], [address] [place] [address] Creatinine [Mass/Vol] 0.82 mg/dL Normal 0.40-1.[address] [facility] Comment on above: Result Comment: METH OD TRACEABLE TO IDMS STANDARD Performed By: #### C BOBBY, 09388-0 #### [facility] ([id number]) [address], [address] [place] [address] GFR/1.73 sq M.predicted among non-blacks MDRD (S/P/Bld) [Vol rate/Area] 82 mL/min/{1.73_m2} Normal >[address] [facility] Comment on above: Result Comment: Reported eGFR is based on the CKD-EPI 2020 equation that does not use a race coefficient. Performed By: #### Quique ROSALES, 16513-0 #### [facility] ([id number]) [address], [address] [place] [address] Glucose [Mass/Vol] 91 mg/dL Normal 65-99 [facility] Comment on above: Performed By: #### Quique ROSALES, 16645-9 #### [facility] ([id number]) [address], [address] [place] [address] Potassium [Moles/Vol] 4.4 mmol/L Normal 3.5-5.[address] [facility] Comment on above: Performed By: #### Quique ROSALES, 24185-2 #### [facility] ([id number]) [address], [address] [place] [address] Protein [Mass/Vol] 6.9 g/dL Normal 6.0-8.0 [facility] Comment on above: Performed By: #### Quique ROSALES, 23458-5 #### [facility] ([id number]) [address], [address] [place] [address] Sodium [Moles/Vol] 143 mmol/L Normal 134-146 [facility] Comment on above: Performed By: #### Quique ROSALES, 73776-3 #### [facility] ([id number]) [address], [address] [place] [address] Urea nitrogen [Mass/Vol] 13 mg/dL Normal 5-[address] [facility] Comment on above: Performed By: #### Quique ROSALES, 97679-3 #### [facility] ([id number]) [address], [address] [place] [address] Lipid 1996 panelon 5 Cholesterol [Mass/Vol] 222 mg/dL High 150-[address] [facility] Comment on above: Performed By: #### Quique ROSALES, 60731-9 #### [facility] ([id number]) [address], [address] [place] [address] Cholesterol in HDL [Mass/Vol] 49 mg/dL Normal >[address] [facility] Comment on above: Result Comment: HDL <40 mg/dL - High Risk HDL > or = 40mg/dL- Desirable HDL >60 mg/dL - Negative Risk Performed By: #### Quique ROSALES, 47718-0 #### [facility] ([id number]) [address], [address] [place] [address] Cholesterol in LDL [Mass/Vol] 116 mg/dL Normal <[address] [facility] Comment on above: Result Comment: LDL <100 mg/dL - Desirable LDL >160 mg/dL - High Risk Performed By: #### Quique ROSALES, 86623-6 #### [facility] ([id number]) [address], [address] [place] [address] Cholesterol in VLDL [Mass/Vol] 57 mg/dL High 0-[address] [facility] Comment on above: Performed By: #### C BOBBY, 03588-5 #### [facility] ([id number]) [address], [address] [place] [address] CHOLESTEROL:HDL 4.5 Normal 1.0-5.[address] [facility] Comment on above: Performed By: #### C BOBBY, 61393-7 #### [facility] ([id number]) [address], [address] [place] [address] Triglyceride [Mass/Vol] 286 mg/dL High 27-[address] 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 MAMM SCREENING BILATERAL W CAD MAMM SCREENING BILATERAL W CAD ANAYA SERRANO 1965 [id number] EXAM: MAMM SCREENING BILATERAL W CAD, 04/21/2024 [...] AM 1 c MOLEC BR IMG Normal [facility] POCT Influenza A/Influenza B /SARS-COV-2 Veritoron 04-09-2024 External Poct Influenza A Antigen Positive [facility] External Poct Influenza B Antigen Negative [facility] SARS-CoV-2 (COVID-19) Ag IA.rapid Ql (Resp) Negative [facility] COMPREHENSIVE METABOLIC PANE Seven 07-13-2021 Albumin [Mass/Vol] 4.5 g/dL Normal 3.6-5.1 [facility] Comment on above: Performed By: #### 1 0231, 7600 #### [facility] [place] [address] Bell[place]: Clarence Burnett MD Albumin/Globulin [Mass ratio] 1.8 {ratio} Normal 1.0-2.5 [facility] Comment on above: Performed By: #### 1 0231, 7600 #### [facility] [place] [address] Bell[place]: Clarence Burnett MD ALP [Catalytic activity/Vol] 96 U/L Normal 37-153 [facility] Comment on above: Performed By: #### 1 0231, 7600 #### [facility] [place] [address] [place]: Clarence Burnett MD ALT [Catalytic activity/Vol] 9 U/L Normal 6-29 [facility] Comment on above: Performed By: #### 1 0231, 7600 #### [facility] [place] [address] Bell[place]: Clarence Burnett MD AST [Catalytic activity/Vol] 12 U/L Normal 10-35 [facility] Comment on above: Performed By: #### 1 0231, 7600 #### [facility] [place] [id number] Bellmaker: Clarence Burnett MD Bilirubin [Mass/Vol] 0.2 mg/dL Normal 0.2-1.2 [facility] Comment on above: Performed By: #### 1 0231, 7600 #### [facility] of [address], [address] [place] [address] Bellmaker: Clarence Burnett MD BUN/CREATININE RATIO NOT APPLICABLE Normal 6-22 [facility] Comment on above: Performed By: #### 1 0231, 7600 #### [facility] of [address], [address] [place] [address] Bellmaker: Clarence Burnett MD Calcium [Mass/Vol] 9.6 mg/dL Normal 8.6-10.4 [facility] Comment on above: Performed By: #### 1 023, 7600 #### [facility] [address], [address] [place] [address] Bellmaker: Clarence Burnett MD Chloride [Moles/Vol] 99 mmol/L Normal 98-110 [facility] Comment on above: Performed By: #### 1 023, 7600 #### [facility] [place] [address] Bell[place]: Clarence Burnett MD CO2 [Moles/Vol] 33 mmol/L High 20-32 [facility] Comment on above: Performed By: #### 1 0231, 7600 #### [facility] [address], [address] [place] [address] Bellmaker: Clarence Burnett MD Creatinine [Mass/Vol] 0.76 mg/dL Normal 0.50-1.05 [facility] Comment on above: Result Comment: For patients >49 years of age, the reference limit for Creatinine is approximately 13% higher for people identified as -[place] African. Performed By: #### 1 0231, 7600 #### [facility] [address], [address] [place] [address] Bellmaker: Clarence Burnett MD eGFR NON-AFR. NIGERIEN 88 mL/min/1.73m2 Normal > OR = 60 [facility] Comment on above: Performed By: #### 1 0231, 7600 #### [facility] [place] [address] Bell[place]: Clarence Burnett MD GFR/1.73 sq M.predicted among blacks MDRD (S/P/Bld) [Vol rate/Area] 102 mL/min/{1.73_m2} Normal > OR = 60 [facility] Comment on above: Performed By: #### 1 023, 7600 #### [facility] [address], [address] [place] [address] Bellmaker: Clarence Burnett MD Globulin (S) [Mass/Vol] 2.5 g/dL Normal 1.9-3.7 [facility] Comment on above: Performed By: #### 1 023, 7600 #### [facility] [address], [address] [place] [address] Bellmaker: Clarence Burnett MD Glucose [Mass/Vol] 77 mg/dL Normal 65-139 [facility] Comment on above: Result Comment: Non-fasting reference interval Performed By: #### 1 0231, 7600 #### [facility] [place] [address] [place]: Clarence Burnett MD Potassium [Moles/Vol] 3.2 mmol/L Low 3.5-5.3 [facility] Comment on above: Performed By: #### 1 023, 7600 #### [facility] [place] [address] Bell[place]: Clarence Burnett MD Protein [Mass/Vol] 7.0 g/dL Normal 6.1-8.1 [facility] Comment on above: Performed By: #### 1 023, 7600 #### [facility] [place] [address] Bellmaker: Clarence Burnett MD Sodium [Moles/Vol] 138 mmol/L Normal 135-146 [facility] Comment on above: Performed By: #### 1 0231, 7600 #### [facility] [address], [address] [place] [address] Bellmaker: Clarence Burnett MD Urea nitrogen [Mass/Vol] 16 mg/dL Normal 7-25 [facility] Comment on above: Performed By: #### 1 0231, 7600 #### [facility] [address], [address] [place] [address] Bellmaker: Clarence Burnett MD LIPID PANEL, [facility] [place] 04-0 Cholesterol [Mass/Vol] 226 mg/dL High <200 [facility] Comment on above: Order Comment: FASTI NG:NO FASTING: NO Performed By: #### 1 0231, 7600 #### [facility] [address], [address] [place] [address] Bellmaker: Clarence Burnett MD Cholesterol in HDL [Mass/Vol] 52 mg/dL Normal > OR = 50 [facility] Comment on above: Order Comment: FASTI NG:NO FASTING: NO Performed By: #### 1 0231, 7600 #### [facility] [address], [address] [place] [address] Bellmaker: Clarence Burnett MD Cholesterol in LDL [Mass/Vol] [...] LDL-C. Suman SS et al. AMADO. 2013;310(19): 8188-4160 (http://education.GoPlanit.Adzilla/faq/PEA090) Performed By: #### 1 0231, 7600 #### [facility] [address], [address] [place] [address] Bellmaker: Clarence Burnett MD Cholesterol.total/ Cholesterol in HDL [Mass ratio] 4.3 {ratio} Normal <5.0 [facility] Comment on above: Order Comment: FASTI NG:NO FASTING: NO Performed By: #### 1 0231, 7600 #### [facility] [address], [address] [place] [address] Bellmaker: Clarence Burnett MD NON HDL CHOLESTEROL 174 mg/dL (calc) High <130 [facility] Comment on above: Order Comment: FASTI NG:NO FASTING: NO Result Comment: For patients with diabetes plus 1 major ASCVD risk factor, treating to a non-HDL-C goal of <100 mg/dL (LDL-C of <70 mg/dL) is considered a therapeutic option. Performed By: #### 1 023, 7600 #### [facility] [address], [address] [place] [address] Bellmaker: Clarence Burnett MD Triglyceride [Mass/Vol] 354 mg/dL High <150 [facility] Comment on above: Order Comment: FASTI NG:NO FASTING: NO Result Comment: If a non-fasting specimen was collected, consider repeat triglyceride testing on a fasting specimen if clinically indicated. Huber et al. J. of Clin. Lipidol. 2015;9:129-169. Performed By: #### 1 230, 0 #### [facility] [address], [address] [place] [address] Bellmaker: Clarence Burnett MD [facility] 06-01-2021 Employed in healthcare? Unknown Normal [facility] Comment on above: Performed By: #### C [id number] #### [address] [address] Group care resident? Unknown Normal [facility] Comment on above: Performed By: #### C [id number] #### [address] [address] In ICU? Unknown Normal [facility] Comment on above: Performed By: #### C [id number] #### [address] [place] [address] status? Unknown Normal [facility] Comment on above: Performed By: #### C [id number] #### [facility] [address] [facility] [place] [address] SARS-CoV-2 (COVID-19) RNA HA+probe Ql (Unsp spec) Negative Normal Negative [facility] Comment on above: Result Comment: The 2019 novel coronavirus SARS-CoV-2 target nucleic acids are not detected. The [employer]? SARS-CoV-2 Assay is a qualitative, multiplex, real-time PCR-based in vitro diagnostic test intended for the detection of SARS-CoV-2 nucleic acid in nasopharyngeal swab (URGENT CARE NURSE PRACTITIONER) specimens from individuals suspected of having COVID-19. The [employer]? SARS-CoV-2 Assay detects SARS-CoV-2 viral RNA from nasopharyngeal swab (URGENT CARE NURSE PRACTITIONER) samples. SARS-CoV-2 RNA is generally detectable in URGENT CARE NURSE PRACTITIONER specimens during the acute phase of infection. Positive results are indicative of the presence of SARS-CoV-2 RNA; clinical correlation with patient history and other diagnostic information is necessary to determine patient infection status. Positive results do not rule out bacterial infection or co-infection with other viruses. The agent detected may not be the definite cause of disease. Laboratories within the [facility] and its territories are required to report all positive results to the appropriate public health authorities. Negative results do not preclude SARS-CoV-2 infection and should not be used as the sole basis for patient management decisions. Negative results must be combined with clinical observations, patient history, and epidemiological information. The [employer]? SARS-CoV-2 Assay is intended for use on [employer] by trained clinical laboratory personnel who are specifically instructed and trained in in vitro diagnostic procedures. This [employer] SARS-CoV-2 Assay has been modified from the clerical secretary?s instructions to allow for nasal swab (anterior Nares) collection. An independent bridging study for nasal swab collection was performed by [facility], a [place] laboratory certified to perform [...] sooner. Fact sheet for Health Care Providers: https://www.fda.gov/media/465381/download Fact sheet for Patients: https://www.fda.gov/media/774033/download Performed By: #### C [id number] #### [address] [address] SARS-CoV-2 (COVID-19) RNA HA+probe Ql (Unsp spec) Unknown Normal [facility] Comment on above: Performed By: #### C [id number] #### [address] [address] Symptomatic as defined by CDC? Unknown Normal [facility] Comment on above: Performed By: #### C [id number] #### [address] [address] [facility] SARS-CoV-2 (COVID-19) RNA HA+probe Ql (Unsp spec) Detected Critically abnormal NOT DETECTED [facility] Comment on above: Result Comment: This test is not yet approved or cleared by the [place] FDA. When there are no FDA-approved or cleared tests available, and other criteria are met, FDA can make tests available under an emergency access mechanism called an Emergency Use Authorization (EUA). The EUA for this test is supported by the [place] of Health and Human Service's (HHS's) declaration [...] used). Performed By: #### C VDTB #### [facility] [address] [address] [address] Lashay Nesbitt TSH W/REFLEX TO FT4on 2020 TSH W/REFLEX TO FT4 1.12 mIU/L Normal [facility] Comment on above: Result Comment: Refe rence Range > or = 20 Years 0.40-4.50 Ranges First trimester 0.26-2.66 Second trimester 0.55-2.73 Third trimester 0.43-2.91 Performed By: #### 3 [id number] #### [facility] [address], [address] [place] [address] Bellmaker: Clarence Burnett MD Creatinineon 01-15-2017 Creatinine 0.86 mg/dL Normal 0.50-1.05 [facility] Comment on above: Performed By: #### 1 [id number] ####[facility] [address] [place] [address] eGFR (MDRD) mL/min/{1.73_m2} Normal [facility] Comment on above: Result Comment: Inte rpretation for Chronic Kidney Disease:Stages 1&2 >60 Healthy or potential kidney damage.Mild decrease of GFR.Stage 3 30-59 Moderate decrease of GFR.Stage 4 15-29 Severe decrease of GFR.Stage 5 <15 Kidney failure or on dialysis. Performed By: #### 1 [id number] ####[facility] [address] [place] [address] Electrolyte Panelon 01-16-20 17 Anion gap 14 mmol/L Normal 10-20 [facility] Comment on above: Performed By: #### 1 [id number] ####[facility] [address] [place] [address] Bicarbonate (HCO3) 30 mmol/L Normal 21-32 [facility] Comment on above: Performed By: #### 1 [id number] ####[facility] [address] [place] [address] Chloride 98 mmol/L Normal 98-107 [facility] Comment on above: Performed By: #### 1 [id number] ####[facility] [address] [place] [address] Potassium molar conc 3.6 mmol/L Normal 3.5-5.1 [facility] Comment on above: Performed By: #### 1 [id number] ####[facility] [address] [place] [address] Sodium 138 mmol/L Normal 136-145 [facility] Comment on above: Performed By: #### 1 [id number] ####[facility] [address] [place] [address] Urea Nitrogenon 01-15-2017 Urea nitrogen 16 mg/dL Normal 6-23 [facility] are Comment on above: Performed By: #### 1 [id number] ####[facility] [address] [place] [address] Vital Signs Date Time Vital Sign Value Performing Clinician Facility 05-13-2024 13:15-0500 Body height 157.5 cm Shara Stapleton OUTBOUND SALES PROFESSIONAL-MEDICAL BILLING SPECIALIST Work Phone: [facility] 05-13-2024 13:15-0500 Body mass index (BMI) [Ratio] 20.63 kg/m2 Sharamarlon Stapleton OUTBOUND SALES PROFESSIONAL-MEDICAL BILLING SPECIALIST Work Phone: [facility] 05-13-2024 13:15-0500 Body temperature 98.6 [degF] Shara Stapleton OUTBOUND SALES PROFESSIONAL-MEDICAL BILLING SPECIALIST Work Phone: [facility] 05-13-2024 13:15-0500 Body weight 51.17 kg Shara Stapleton OUTBOUND SALES PROFESSIONAL-MEDICAL BILLING SPECIALIST Work Phone: [facility] 05-13-2024 13:15-0500 Diastolic blood pressure 70 mm[Hg] Shara Stapleton OUTBOUND SALES PROFESSIONAL-MEDICAL BILLING SPECIALIST Work Phone: [facility] 05-13-2024 13:15-0500 Heart rate 70 /min Shara Stapleton OUTBOUND SALES PROFESSIONAL-MEDICAL BILLING SPECIALIST Work Phone: [facility] 05-13-2024 13:15-0500 SaO2% (BldA) [Mass fraction] 99 % Shara Stapleton OUTBOUND SALES PROFESSIONAL-MEDICAL BILLING SPECIALIST Work Phone: [facility] 05-13-2024 13:15-0500 Systolic blood pressure 108 mm[Hg] Shara Stapleton OUTBOUND SALES PROFESSIONAL-MEDICAL BILLING SPECIALIST Work Phone: [facility] 04-30-2024 08:51-0500 Body height 157.5 cm Shara Stapleton OUTBOUND SALES PROFESSIONAL-MEDICAL BILLING SPECIALIST Work Phone: [facility] 04-30-2024 08:51-0500 Body mass index (BMI) [Ratio] 20.52 kg/m2 Shara Stapleton OUTBOUND SALES PROFESSIONAL-MEDICAL BILLING SPECIALIST Work Phone: [facility] 04-30-2024 08:51-0500 Body temperature 98.01 [degF] Shara Stapleton OUTBOUND SALES PROFESSIONAL-MEDICAL BILLING SPECIALIST Work Phone: [facility] 04-30-2024 08:51-0500 Body weight 50.89 kg Shara Stapleton OUTBOUND SALES PROFESSIONAL-MEDICAL BILLING SPECIALIST Work Phone: [facility] 04-30-2024 08:51-0500 Diastolic blood pressure 90 mm[Hg] Shara Stapleton OUTBOUND SALES PROFESSIONAL-MEDICAL BILLING SPECIALIST Work Phone: [facility] 04-30-2024 08:51-0500 Heart rate 64 /min Shara Stapleton OUTBOUND SALES PROFESSIONAL-MEDICAL BILLING SPECIALIST Work Phone: [facility] 04-30-2024 08:51-0500 Respiratory rate 18 /min Shara Stapleton OUTBOUND SALES PROFESSIONAL-MEDICAL BILLING SPECIALIST Work Phone: [facility] 04-30-2024 08:51-0500 SaO2% (BldA) [Mass fraction] 99 % Shara Stapleton OUTBOUND SALES PROFESSIONAL-MEDICAL BILLING SPECIALIST Work Phone: [facility] 04-30-2024 08:51-0500 Systolic blood pressure 130 mm[Hg] Shara Stapleton OUTBOUND SALES PROFESSIONAL-MEDICAL BILLING SPECIALIST Work Phone: [facility] 04-09-2024 11:52-0500 Body height 157.5 cm Sharamarlon Stapleton OUTBOUND SALES PROFESSIONAL-MEDICAL BILLING SPECIALIST Work Phone: [facility] 04-09-2024 11:52-0500 Body mass index (BMI) [Ratio] 20.43 kg/m2 Shara Stapleton OUTBOUND SALES PROFESSIONAL-MEDICAL BILLING SPECIALIST Work Phone: [facility] 04-09-2024 11:52-0500 Body temperature 99.7 [degF] Shara Stapleton OUTBOUND SALES PROFESSIONAL-MEDICAL BILLING SPECIALIST Work Phone: [facility] 04-09-2024 11:52-0500 Body weight 50.67 kg Shara Stapleton OUTBOUND SALES PROFESSIONAL-MEDICAL BILLING SPECIALIST Work Phone: [facility] 04-09-2024 11:52-0500 Diastolic blood pressure 56 mm[Hg] Shara Stapleton OUTBOUND SALES PROFESSIONAL-MEDICAL BILLING SPECIALIST Work Phone: [facility] 04-09-2024 11:52-0500 Heart rate 74 /min Shara Stapleton APRN-MEDICAL BILLING SPECIALIST Work Phone: [facility] 04-09-2024 11:52-0500 Respiratory rate 18 /min Shara Stapleton OUTBOUND SALES PROFESSIONAL-MEDICAL BILLING SPECIALIST Work Phone: [facility] 04-09-2024 11:52-0500 SaO2% (BldA) [Mass fraction] 96 % Shara Stapleton APRN-MEDICAL BILLING SPECIALIST Work Phone: [facility] 04-09-2024 11:52-0500 Systolic blood pressure 126 mm[Hg] Shara Stapleton OUTBOUND SALES PROFESSIONAL-MEDICAL BILLING SPECIALIST Work Phone: [facility] 05-21-2023 12:02-0500 Body height 157.5 cm Shayla Ho OUTBOUND SALES PROFESSIONAL-AUDIO VISUAL EQUIPMENT RENTAL CLERK Work Phone: [facility] 05-21-2023 12:02-0500 Body mass index (BMI) [Ratio] 21.62 kg/m2 Shayla Ho OUTBOUND SALES PROFESSIONAL-AUDIO VISUAL EQUIPMENT RENTAL CLERK Work Phone: [facility] 05-21-2023 12:02-0500 Body temperature 98.01 [degF] Shayla GIVENSAUDIO VISUAL EQUIPMENT RENTAL CLERK Work Phone: [facility] 05-21-2023 12:02-0500 Body weight 53.62 kg Shayla GIVENSAUDIO VISUAL EQUIPMENT RENTAL CLERK Work Phone: [facility] 05-21-2023 12:02-0500 Diastolic blood pressure 70 mm[Hg] Shayla GIVENSAUDIO VISUAL EQUIPMENT RENTAL CLERK Work Phone: [facility] 05-21-2023 12:02-0500 Heart rate 64 /min Shayla GIVENSAUDIO VISUAL EQUIPMENT RENTAL CLERK Work Phone: [facility] 05-21-2023 12:02-0500 SaO2% (BldA) [Mass fraction] 96 % Shayla GIVENSAUDIO VISUAL EQUIPMENT RENTAL CLERK Work Phone: [facility] 05-21-2023 12:02-0500 Systolic blood pressure 118 mm[Hg] Shayla SEO Work Phone: [facility] 10-05-2021 12:00-0400 Body height 157.48 cm Cindy Avila Other [facility] Other 10-05-2021 12:00-0400 Body mass index (BMI) [Ratio] 22.86 kg/m2 Cindy Avila Other [facility] Other 10-05-2021 12:00-0400 Body temperature 98.1 [degF] Cindy Avila Other [facility] Other 10-05-2021 12:00-0400 Body weight 56.7 kg Cindy Avila Other [facility] Other 10-05-2021 12:00-0400 Diastolic blood pressure 68 mm[Hg] Cindy Avila Other [facility] Other 10-05-2021 12:00-0400 Respiratory rate 18 /min Cindy Avila Other [facility] Other 10-05-2021 12:00-0400 SaO2% (BldA) [Mass fraction] 99 % Cindy Avila Other [facility] Other 10-05-2021 12:00-0400 Systolic blood pressure 103 mm[Hg] Cindy Avila Other [facility] Other 02-09-2021 11:15-0400 Body height 157.48 cm Araceli Cashmond Other [facility] Other 02-09-2021 11:15-0400 Body mass index (BMI) [Ratio] 21.03 kg/m2 Araceli Mechelle Other [facility] Other 02-09-2021 11:15-0400 Body temperature 97.2 [degF] Araceli Cashmond Other [facility] Other 02-09-2021 11:15-0400 Body weight 52.16 kg Araceli Cashmond Other [facility] Other 02-09-2021 11:15-0400 Respiratory rate 18 /min Araceli Cashmond Other [facility] Other 02-09-2021 11:15-0400 SaO2% (BldA) [Mass fraction] 97 % Araceli Mechelle Other [facility] Other Encounters Encounter Date Encounter Type Care Provider Facility Start: 05-31-2024 End: 05-31-2024 Merari Stapleton APRN-MEDICAL BILLING SPECIALIST Work Phone: [facility] - [facility] Start: 05-17-2024 End: 05-17-2024 Orders Only Shara Stapleton OUTBOUND SALES PROFESSIONAL-MEDICAL BILLING SPECIALIST Work Phone: [facility] - Family Medicine Start: 05-13-2024 End: 05-13-2024 ambulatory [facility] Start: 05-13-2024 Encounter for genera l adult medical examination without abnormal findings [facility] Start: 05-13-2024 End: 05-13-2024 ambulatory [facility] Start: 05-13-2024 Encounter for genera l adult medical examination without abnormal findings [facility] Start: 05-13-2024 End: 05-13-2024 Patient encounter status Shara Stapleton OUTBOUND SALES PROFESSIONAL-MEDICAL BILLING SPECIALIST Work Phone: [facility] Work Phone: Start: 05-13-2024 End: 05-13-2024 Periodic preventive med est patient 40-64yrs Shara Stapleton OUTBOUND SALES PROFESSIONAL-MEDICAL BILLING SPECIALIST Work Phone: [facility] - Family Medicine Comment on above: Wellness examination (Primary Dx); Primary hypertension; Acute bilateral thoracic back pain; Smoking; Post herpetic neuralgia Start: 05-12-2024 End: 05-12-2024 Orders Only Shara Stapleton OUTBOUND SALES PROFESSIONAL-MEDICAL BILLING SPECIALIST Work Phone: [facility] - Family Medicine Comment on above: Abnormal MRI, kidney (Primary Dx) Start: 04-30-2024 End: 04-30-2024 Office outpatient visit 15 minutes Shara Stapleton OUTBOUND SALES PROFESSIONAL-MEDICAL BILLING SPECIALIST Work Phone: [facility] - Family Medicine Comment on above: Mid-back pain, acute (Primary Dx); Smoking; Renal mass Start: 04-30-2024 End: 04-30-2024 ambulatory [facility] Start: 04-26-2024 End: 04-28-2024 Refill Shara Stapleton OUTBOUND SALES PROFESSIONAL-MEDICAL BILLING SPECIALIST Work Phone: [facility] Internal [facility] - Family [facility] Start: 04-26-2024 End: 04-27-2024 Telephone encounter Wanda Flores [facility] Internal [facility] - Family Medicine Start: 04-22-2024 End: 04-22-2024 Orders Only Shara Stapleton OUTBOUND SALES PROFESSIONAL-MEDICAL BILLING SPECIALIST [facility] Comment on above: Encounter for screen ing mammogram for malignant neoplasm of breast (Primary Dx) Start: 04-21-2024 End: 04-21-2024 ambulatory [facility] Start: 04-12-2024 End: 04-12-2024 Orders Only Shara Stapleton OUTBOUND SALES PROFESSIONAL-MEDICAL BILLING SPECIALIST [facility] Phone: [facility] Comment on above: Encounter for screen ing mammogram for malignant neoplasm of breast (Primary Dx) Start: 04-09-2024 End: 04-09-2024 Office outpatient visit 15 minutes Shara Stapleton OUTBOUND SALES PROFESSIONAL-MEDICAL BILLING SPECIALIST Work Phone: [facility] Internal Medicine [facility] Comment on above: Influenza A (Primary Dx); Fever, unspecified fever cause; Smoking Start: 04-09-2024 End: 04-09-2024 ambulatory [facility] Start: 03-24-2024 End: 03-29-2024 Refill Jhon Rosas DO [facility] Phone: [facility] Start: 12-08-2023 End: 12-08-2023 Refill Wanda Flores [facility] - Family Medicine Start: 08-04-2023 End: 08-05-2023 Refill Shara Stapleton OUTBOUND SALES PROFESSIONAL-MEDICAL BILLING SPECIALIST Work Phone: [facility] Start: 06-02-2023 Orders Only Shayla Cartagena Vic OUTBOUND SALES PROFESSIONAL-AUDIO VISUAL EQUIPMENT RENTAL CLERK Work Phone: [facility] Start: 05-27-2023 Orders Only Shayla Cartagena Vic OUTBOUND SALES PROFESSIONAL-AUDIO VISUAL EQUIPMENT RENTAL CLERK Work Phone: [facility] - [facility] Start: 05-21-2023 End: 05-21-2023 ambulatory SHAYLA HO [facility] Start: 05-21-2023 End: 05-21-2023 Office outpatient visit 15 minutes Shayla Ho OUTBOUND SALES PROFESSIONAL-AUDIO VISUAL EQUIPMENT RENTAL CLERK Work Phone: [facility] - [facility] Comment on above: Chest wall pain (Lu shayla Dx); Herpes zoster with complication Start: 10-05-2021 End: 10-05-2021 ambulatory Cindy Avila Other [facility] Other Start: 10-05-2021 Office outpatient vi sit 15 minutes Cindy Avila [facility] Start: 06-01-2021 End: 06-02-2021 ambulatory JHON NAYAKGOPAL Facility:[facility] Start: 04-19-2021 End: 04-19-[address] [facility] Start: 02-09-2021 Office outpatient ne w 20 minutes Araceli Mechelle [facility] Start: 01-15-2017 Ambulatory DINORA KIRNUS Facility :[id number] Start: 01-15-2017 Ambulatory Jasmin Catalaner Facil [id number] Start: 12-18-2016 Ambulatory DINORA KIRNUS Facility :[id number] Start: 12-18-2016 Ambulatory Jasmin Catalaner Facil [id number] Procedures Date Procedure Procedure Detail Performing Clinician Start: 05-13-2024 Adult depression scr eening assessment Shara Stapleton OUTBOUND SALES PROFESSIONAL-MEDICAL BILLING SPECIALIST Work Phone: Start: 04-21-2024 Mammography Shara Ag ch OUTBOUND SALES PROFESSIONAL-MEDICAL BILLING SPECIALIST Work Phone: Start: 04-09-2024 POCT INFLUENZA A/INF LUENZA B/SARS-COV-2 VERITOR Shara Stapleton OUTBOUND SALES PROFESSIONAL-MEDICAL BILLING SPECIALIST Work Phone: Start: 04-09-2024 Adult depression scr eening assessment Shara Stapleton OUTBOUND SALES PROFESSIONAL-MEDICAL BILLING SPECIALIST Work Phone: Start: 05-21-2023 Adult depression scr eening assessment Shayla Ho OUTBOUND SALES PROFESSIONAL-AUDIO VISUAL EQUIPMENT RENTAL CLERK Work Phone: Start: 07-03-2022 Mammography Shayla Ho OUTBOUND SALES PROFESSIONAL-AUDIO VISUAL EQUIPMENT RENTAL CLERK Work Phone: Plan of Treatment Date Care Activity Detail Author Start: 05-27-2025 Tobacco Screening Tobacco Screening [facility] Start: 05-13-2025 Adult BMI Screening Adult BMI Screen ing [facility] Start: 05-13-2025 Depression Screening Depression Scre ening [facility] Start: 05-13-2025 Tobacco Screening Tobacco Screening [facility] Start: 04-30-2025 Adult BMI Screening Adult BMI Screen ing [facility] Start: 04-30-2025 Tobacco Screening Tobacco Screening [facility] Start: 04-21-2025 Adult BMI Screening Adult BMI Screen ing [facility] Start: 04-21-2025 Screening for malign ant neoplasm of breast Mammogram [facility] Start: 04-09-2025 Adult BMI Screening Adult BMI Screen ing [facility] Start: 04-09-2025 Depression Screening Depression Scre ening [facility] Start: 04-09-2025 Tobacco Screening Tobacco Screening [facility] Start: 12-15-2024 End: 12-15-2024 Patient encounter procedure 12/15/2024 8:30 AM EDT Appointment [facility] [address] [place] [id number] [facility] Start: 08-10-2024 End: 05-12-2025 US Retroperitoneum limited Ultrasound retroperitoneal limited Imaging Routine Abnormal MRI, kidney Expected: 08/10/2024 (Approximate), Expires: 05/12/2025 [facility] Work Phone: Comment on above: Expected: 08/10/2024 (Approximate), Expires: 05/12/2025 Start: 06-04-2024 End: 06-04-2024 Admission to same day surgery center 06/04/2024 1:30 PM EST - 06/04/2024 2:30 PM EST Surgery [facility] - Endoscopy [address] [place] [id number] Santo Rosenthal, DO [address] [place] [address] COLONOSCOPY DIAGNOSTIC / SCREENING [40468 (CPT )] [facility] Comment on above: COLONOSCOPY DIAGNOST IC / SCREENING [10942 (CPT )] Start: 06-04-2024 End: 06-04-2024 Anesthesia consultation 06/04/2024 1:30 PM EST Anesthesia Event [facility] [address] [facility] [id number] Ramy Walker, DO [address] [place] [address] [facility] Start: 06-04-2024 End: 06-04-2024 Colonoscopy flx dx w/collj spec when pfrmd COLONOSCOPY DIAGNOSTIC / SCREENING Screen for colon cancer 06/04/2024 1:30 PM EST [facility] Start: 06-04-2024 Subsequent hospital visit by physician 06/04/2024 1:30 PM EST Hospital Encounter [facility] [address] [place] [id number] Santo Rosenthal, DO [address] [place] [address] Colon cancer screening (Primary Dx) [facility] Comment on above: Colon cancer screeni ng (Primary Dx) Start: 06-03-2024 End: 06-03-2024 ambulatory 06/03/2024 4:00 PM EST Support Visit [facility] - Pre Admit [address] [place] [id number] [facility] - Pre Admit Start: 05-21-2024 Adult BMI Screening Adult BMI Screen ing [facility] Start: 05-21-2024 Depression Screening Depression Scre ening [facility] Start: 05-21-2024 Tobacco Screening Tobacco Screening [facility] Start: 05-13-2024 End: 05-13-2025 Lipid 1996 panel - Serum or Plasma Lipid profile Lab Routine Wellness examination Expected: 05/13/2024 (Approximate), Expires: 05/13/2025 [facility] Comment on above: Expected: 05/13/2024 (Approximate), Expires: 05/13/2025 Start: 05-13-2024 End: 05-13-2025 XR Thoracic spine 3 Views X-ray spine thoracic 3 views Imaging Routine Acute bilateral thoracic back pain Expected: 05/13/2024, Expires: 05/13/2025 [email or web address] Work Phone: Comment on above: Expected: 05/13/2024 , Expires: 05/13/2025 Start: 05-13-2024 End: 05-13-2024 Patient encounter procedure 05/13/2024 1:00 PM EST [facility] [address] [place] [address] Shara Stapleton, OUTBOUND SALES PROFESSIONAL-MEDICAL BILLING SPECIALIST [address] [place] [address] [facility] Internal Medicine - Family Medicine Start: 04-30-2024 End: 04-30-2025 MR Abdomen WO and W contrast IV MR abdomen with and without contrast Imaging Routine Renal mass Expected: 04/30/2024, Expires: 04/30/2025 [facility] Work Phone: Comment on above: Expected: 04/30/2024 , Expires: 04/30/2025 Start: 04-30-2024 End: 04-30-2024 Patient encounter procedure 04/30/2024 9:00 AM EST Office Visit [facility] Medicine - Family Medicine [address] [place] [address] Shara Stapleton, OUTBOUND SALES PROFESSIONAL-MEDICAL BILLING SPECIALIST [address] [place] [address] [facility] - Family [facility] Start: 04-22-2024 End: 04-22-2025 NM Guidance limited for localization of tumor NM Molecular breast imaging localization limited area Imaging Routine Encounter for screening mammogram for malignant neoplasm of breast Expected: 04/22/2024, Expires: 04/22/2025 [facility] Work Phone: Comment on above: Expected: 04/22/2024 , Expires: 04/22/2025 Start: 04-21-2024 End: 04-21-2024 Patient encounter procedure 04/21/2024 2:00 PM EST Appointment [facility] - Mammography/DEXA Imaging [address] [place] [address] [facility] [facility] - Mammography/DEXA Imaging Start: 04-12-2024 End: 04-12-2025 DBT Breast - bilateral screening Mammography screening bilateral with CAD Imaging Routine Encounter for screening mammogram for malignant neoplasm of breast Expected: 04/12/2024, Expires: 04/12/2025 [facility] Work Phone: Comment on above: Expected: 04/12/2024 , Expires: 04/12/2025 Start: 01-20-2024 End: 01-20-2024 Patient encounter procedure 01/20/2024 3:30 PM EDT Office Visit [facility] Internal Medicine - Family Medicine [address] [place] [address] Jhon Rosas, [address], [place] [address] [facility] Internal Medicine - Family Medicine Start: 12-15-2023 Tobacco Counseling Tobacco Counselin elvin [facility] Start: 12-14-2023 Influenza vaccination Influenza Vacc ine [facility] Start: 08-30-2023 Administration of varicella zoster vaccine Zoster (Shingles) Vaccine (1 of 2) [facility] Comment on above: Postponed from 02/03 (Patient Refused) Start: 08-30-2023 Adult BMI Screening Adult BMI Screen ing [facility] Start: 08-30-2023 Depression Screening Depression Scre ening [facility] Start: 08-30-2023 DTaP,Tdap and Td Vac cines (1 - Tdap) DTaP,Tdap and Td Vaccines (1 - Tdap) [facility] Comment on above: Postponed from 02/03 (Patient Refused) Start: 08-30-2023 Tobacco Screening Tobacco Screening [facility] Start: 08-13-2023 Screening for malign ant neoplasm of cervix Pap Smear [facility] Comment on above: Postponed from 02/03 (Not Indicated) Start: 07-04-2023 Screening for malign ant neoplasm of breast Mammogram [facility] Start: 12-13-2022 Influenza vaccination Influenza Vacc ine [facility] Start: 2015 Administration of varicella zoster vaccine Zoster (Shingles) Vaccine (1 of 2) [facility] Start: 2010 Screening for malign ant neoplasm of colon Colon Cancer Screening 3 Year Cologuard [facility] Start: 1986 Screening for malign ant neoplasm of cervix Pap Smear [facility] Start: 02-04-1984 DTaP,Tdap and Td Vac cines (1 - Tdap) DTaP,Tdap and Td Vaccines (1 - Tdap) [facility] Start: 1965 Tobacco Counseling Tobacco Counselin g [facility] End: 04-30-2025 Basic metabolic 2000 panel - Serum or Plasma Basic Metabolic Panel Lab Routine Renal mass 1 Occurrences starting 04/30/2024 until 04/30/2025 [facility] Comment on above: 1 Occurrences starti ng 04/30/2024 until 04/30/2025 Colonoscopy flx dx w/collj spec when pfrmd COLONOSCOPY DIAGNOSTIC / SCREENING Colon cancer screening [facility] End: 05-13-2025 Comprehensive metabolic 2000 panel - Serum or Plasma Comprehensive metabolic panel Lab Routine Wellness examination 1 Occurrences starting 05/13/2024 until 05/13/2025 [facility] Comment on above: 1 Occurrences starti ng 05/13/2024 until 05/13/2025 Payers Date Payer Category Payer Unknown 2020 Managed Care Other (unspecified) [employer] [id number] 2020 Private Health Insurance [facility] [employer] [id number] 2020-Present [phone] [address] [address] [place] [address] [id number] 2020 Unknown [id number] 1965 Unknown [id number] 1965 Unknown [id number] [id number] 1965 Unknown [id number] [id number] 1965 Unknown [id number] 1965 Unknown [id number] [id number] 1965 Unknown [id number] [id number] 1965 Unknown [id number] [id number] 1965 Unknown [id number] [id number] 1959 Unknown [id number] Social History Date Type Detail Facility Start: 05-25-2020 End: 04-09-2024 Sex Assigned At [facility] Other Start: 08-29-[address] [facility] Smokes tobacco daily [facility] History of tobacco use Cigarette Smoker P [facility] Start: 05-25-2020 End: 08-29-2022 Cigarettes smoked current (pack per day) - Reported 0.5 [facility] Start: 08-29-2022 Tobacco use and exposure Smokeless tobacco non-user [facility] Start: 04-09-2024 End: 05-27-2024 Alcoholic beverage intake Current drinker of alcohol (finding) [facility] Adolescent depressio n screening assessment 0 [facility] Start: 1965 Sex assigned at Not on file P [facility] Start: 11-17-2014 Sex Female (finding) [facility] Clinical Notes 02-09-2021 to 05-13-2024 Shara Stapleton, OUTBOUND SALES PROFESSIONAL-MEDICAL BILLING SPECIALIST - 05/13/2024 1:00 PM ESTTelephone Encounter - Mariam Mccall CMA - 05/12/2024 10:22 AM ESTTelephone Encounter - Tasha Goodrich - 05/12/2024 10:22 AM EST Note Date & Type Note Facility 05-13-2024 History of Presen t illness Narrative Images from the original note were not included. [address] [place] [address] Patient: Anaya Serrano Date of : 1965 Encounter Date: 05/13/2024 History of Present Illness: The patient is a 59 y.o. female, an established patient, and is here for Chief Complaint Patient presents with Results . HPI Patient is here for a wellness appointment in to go over results of recent MRI of right kidney due to incidental findings on an ER visit from a CT of abdomen. Patient also was found to have a small right kidney stone on CT of abdomen in ER a few weeks ago. She is still struggling with thoracic back pain that radiates to the front. She does have numbness and tingling when she hyperextends her back in the numbness and tingling are on the tops of her thighs during hyperextension. The baclofen is helping her fall asleep and stay asleep with her back pain symptoms and the Motrin 400-800 she takes is helping as well. Last year she let her Cologuard and she believes she did that the year before last too. She plans to set up an MBI breast screening as part of her breast screening this year at [facility]. Patient also believes she had shingles around [place] time as she had intense burning pain in her left mid back with blistered rash around her bra line. Almost all of the rash has resolved but she still has burning pain in this area. Problem List Items Addressed This Visit Cardiovascular and Mediastinum Hypertension Other Smoking Other Visit Diagnoses Wellness examination - Primary Acute bilateral thoracic back pain Relevant Orders X-ray spine thoracic 3 views Post herpetic neuralgia Relevant Medications gabapentin (NEURONTIN) 100 mg capsule Past Medical, Family, and Social History Update: The following portions of the patient's history were reviewed and updated as appropriate: allergies, current medications, past family history, past medical history, past social history, past surgical history and problem list. Past Medical History: Diagnosis Date Hypertension Past Surgical History: Procedure Laterality Date APPENDECTOMY HERNIA REPAIR HYSTERECTOMY Current Outpatient Medications Medication Sig Dispense Refill baclofen (LIORESAL) 10 mg tablet Take 1 tablet (10 mg total) by mouth in the morning and 1 tablet (10 mg total) before bedtime. 60 tablet 1 ibuprofen (MOTRIN) 800 mg tablet Take 1 tablet (800 mg total) by mouth every 8 (eight) hours as needed for pain. 30 tablet 1 metoprolol succinate XL (TOPROL XL) 50 mg 24 hr tablet TAKE 1 TABLET BY MOUTH IN THE MORNING 90 tablet 1 ondansetron ODT (ZOFRAN ODT) 4 mg disintegrating tablet Dissolve 1 tablet (4 mg total) on tongue every 8 (eight) hours as needed for nausea or vomiting. 20 tablet 0 famotidine (PEPCID) 20 mg tablet Take 1 tablet (20 mg total) by mouth in the morning and 1 tablet (20 mg total) before bedtime. TAKE 1 TABLET BY MOUTH IN THE MORNING AND 1 TABLET BEFORE BEDTIME. 60 tablet 1 gabapentin (NEURONTIN) 100 mg capsule Take 1 capsule (100 mg total) by mouth daily as needed (postherpatic neuralgia). 30 capsule 1 No current facility-administered medications for this [...] Systems Constitutional: Negative for activity change, appetite change, chills, fever and unexpected weight change. HENT: Negative for ear pain and sore throat. Eyes: Negative for pain and visual disturbance. Respiratory: Negative. Negative for cough and shortness of breath. Cardiovascular: Negative. Negative for chest pain and palpitations. Gastrointestinal: Negative for abdominal pain and vomiting. Genitourinary: Negative. Negative for dysuria and hematuria. Musculoskeletal: Positive for back pain, gait problem and myalgias. Negative for arthralgias. Skin: Positive for rash. Negative for color change. Neurological: Positive for numbness. Negative for dizziness, seizures, syncope and weakness. Psychiatric/Behavioral: Negative. All other systems reviewed and are negative. Physical Exam: BP 108/70 (BP Site: Left Arm, BP Postition: Sitting) Pulse 70 Temp 37 C (98.6 F) (Tympanic) Ht 157.5 cm (5' 2 ) Wt 51.2 kg (112 lb 12.8 oz) SpO2 99% BMI 20.63 kg/m Physical Exam Vitals reviewed. Constitutional: Appearance: Normal appearance. She is well-developed. HENT: Head: Normocephalic and atraumatic. Right Ear: Tympanic membrane, ear canal and external ear normal. Left Ear: Tympanic membrane, ear canal and external ear normal. Nose: Nose normal. Mouth/Throat: Mouth: Mucous membranes are moist. Eyes: Pupils: Pupils are equal, round, and reactive to light. Cardiovascular: Rate and Rhythm: Normal rate and regular rhythm. Heart sounds: Normal heart sounds. No murmur heard. Pulmonary: Effort: Pulmonary effort is normal. No respiratory distress. Breath sounds: Normal breath sounds. No wheezing. Abdominal: General: Bowel sounds are normal. Palpations: Abdomen is soft. Tenderness: There is no abdominal tenderness. Musculoskeletal: Cervical back: Neck supple. Right lower leg: No edema. Left lower leg: No edema. Lymphadenopathy: Cervical: No cervical adenopathy. Skin: General: Skin is warm and dry. Capillary Refill: Capillary refill takes less than 2 seconds. Findings: Rash present. Rash is vesicular. Comments: Blister with scab to area marked above left mid back Neurological: General: No focal deficit present. Mental Status: She is alert and oriented to person, place, and time. Cranial Nerves: No cranial nerve deficit. Psychiatric: Mood and Affect: Mood normal. Behavior: Behavior normal. Assessment and Plan: Anaya was seen today for results. Diagnoses and all orders for this visit: Wellness examination Primary hypertension Acute bilateral thoracic back pain - X-ray spine thoracic 3 views; Future Smoking Post herpetic neuralgia - gabapentin (NEURONTIN) 100 mg capsule; Take 1 capsule (100 mg total) by mouth daily as needed (postherpatic neuralgia). Other orders - famotidine (PEPCID) 20 mg tablet; Take 1 tablet (20 mg total) by mouth in the morning and 1 tablet (20 mg total) before bedtime. TAKE 1 TABLET BY MOUTH IN THE MORNING AND 1 TABLET BEFORE BEDTIME. Follow-up: Health maintenance and immunizations were discussed and recommendations were made. It was recommended that patient get shingles vaccine as soon as her last blister from herpes zoster rash has resolved. She declines a flu shot and a Tdap. It was recommended that she set up a Pap smear and proceed with MBI screening for breast cancer. Since she let Cologuard last year it was recommended that she set up colonoscopy and she is willing to proceed with screening colonoscopy with Dr. Rosenthal. Blood pressure is at goal, no changes. She is willing to proceed with thoracic x-ray and she was offered pain management for injections but declined. She should use the Motrin with food and Pepcid to prevent GERD symptoms returning. MRI of right kidney was thoroughly he reviewed with patient and urology referral was offered but patient would like to wait until follow-up imaging with ultrasound in 3 months before any specialty referral is made. Patient may use the gabapentin for post herpetic neuralgia symptoms and also lidocaine to this area once rashes resolved. She is outside the timeframe for antivirals to be effective. Patient was advised to quit smoking and does have nicotine patches at home that she is willing to try. Follow-up in 3 months after ultrasound of right kidney. NUSRAT GARDNER APRN-CNP 05/13/24 1434 documented in this encounter [facility] 05-12-2024 Miscellaneous Notes Formattin g of this note might be different from the original. ----- Message from NUSRAT Nielson sent at 05/12/2024 9:07 AM EST ----- Pt has what look like complex cysts to the radiologist on right kidney. He cannot r/o neoplasm however so she needs f/u imaging in 3 mo to make sure they are not changing. He says the f/u imaging can be US or CT so I will order f/u US to look at this in 3 mo. She should set this up at [facility]. Staff please fax order to [facility] after telling pt results. COMES IN FOR APPT 05/13 documented in this encounter [facility] 05-12-2024 Telephone encount er Note ----- Message from NUSRAT Nielson sent at 05/12/2024 9:07 AM EST ----- Pt has what look like complex cysts to the radiologist on right kidney. He cannot r/o neoplasm however so she needs f/u imaging in 3 mo to make sure they are not changing. He says the f/u imaging can be US or CT so I will order f/u US to look at this in 3 mo. She should set this up at [facility]. Staff please fax order to [facility] after telling pt results. [facility] 05-12-2024 Telephone encount er Note COMES IN FOR APPT 05/13 [facility] 04-30-2024 History of Presen t illness Narrative [address] [place] [address] Patient: Anaya Serrano Date of : 1965 Encounter Date: 04/30/2024 History of Present Illness: The patient is a 59 y.o. female, an established patient, and is here for Chief Complaint Patient presents with Back Pain [facility] er . HPI Friday patient went to [facility] for increasingly worsening mid back pain [...] her pain. Patient was given muscle relaxants, [place], Toradol in the ER and her back pain did improve. Incidentally on CT it was found that she had a renal mass that needs further investigation with a contrast MRI. Patient denies any significant weakness or falling or loss of bowel or bladder control with the pain in her back. 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 Problem List Items [...] BMI 20.52 kg/m Physical Exam Vitals reviewed. 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 Constitutional: Appearance: Normal [...] is experiencing in her leg. Stop the [place], Toradol and methocarbamol as given in the [...] 1st. Obtain MRI with contrast at the [facility] as well as kidney function prior. Patient is not ready to quit smoking despite knowing negative health consequences. Follow-up in 2 weeks to review results of MRI and recheck back pain. SHARA STAPLETON APRN-MEDICAL BILLING SPECIALIST NUSRAT Gardner 05/04/24 1003 documented in this encounter [facility] 04-26-2024 Miscellaneous Notes Formattin g of this note might be different from the original. Patient was in ER and they wanted her to Follow up with you candido. Where would you like me to fit her in at? 9afriday documented in this encounter [facility] 04-26-2024 Telephone encount er Note Patient was in ER and they wanted her to Follow up with you candido. Where would you like me to fit her in at? [facility] 04-26-2024 Telephone encount er Note 9afriday [facility] 04-09-2024 History of Presen t illness Narrative [address] [place] [address] Patient: Anaya Serrano Date of : 1965 [...] came from work - she works at [employer]. Problem List Items Addressed This Visit Other [...] APRN-CNP 04/09/24 1409 documented in this encounter [facility] 03-24-2024 Miscellaneous Notes Formattin g of this note might be different from the original. She is overdue for appt- I'll give temp supply documented in this encounter [facility] 03-24-2024 Telephone encount er Note She is overdue for appt- I'll give temp supply [facility] 12-08-2023 Miscellaneous Notes Formattin g of this note might be different from the original. Prescription sent in. She is overdue for a wellness. Please set up documented in this encounter [facility] 12-08-2023 Telephone encount er Note Prescription sent in. She is overdue for a wellness. Please set up [facility] 05-21-2023 History of Presen t illness [...] to go to the ER until Friday when she just couldn't take the pain [...] Alexander 05/21/23 1335 [facility] 10-05-2021 Evaluation note Encounter Date Diagnosis Assessment [...] to only the absolute essential needed assessments. [facility] Other 10-29-2021 Evaluation note* Encounter Date Diagnosis [...] no improvement in 2 to 3 days. [facility] Other Evaluation note* Diagnosis Influenza A- Primary Influenza with other respiratory manifestations Fever, unspecified fever cause Smoking Tobacco use disorder [facility] Diagnosis Encounter for screening mammogram for malignant neoplasm of breast- Primary [facility] Diagnosis Encounter for screening mammogram for malignant neoplasm of breast- Primary documented in this encounter [facility]* Diagnosis Mid-back pain, acute- Primary Smoking Tobacco use disorder Renal mass Unspecified disorder of kidney and ureter documented [facility]* Diagnosis Abnormal MRI, kidney- Primary documented in [facility]* Diagnosis Wellness examination- Primary Primary hypertension Unspecified essential hypertension Acute bilateral thoracic back pain Smoking Tobacco use disorder Post herpetic neuralgia Herpes zoster with other nervous system complications [facility] Diagnosis Chest wall pain- Primary Painful respiration Herpes zoster with complication [facility] - Reported* Type Description Date Medical History HTN [facility] Other InstructionsNot on filedocumented in this encounter [...] section and content) DATE CREATED AUTHOR 10/07/2017 [facility] DATE CREATED AUTHOR AUTHOR'S ORGANIZ ATION 10/08/2017 [facility] DATE CREATED AUTHOR AUTHOR'S ORGANIZ ATION 04/26/2021 [facility] DATE CREATED AUTHOR AUTHOR'S ORGANIZ ATION 06/02/2021 [facility] DATE CREATED AUTHOR AUTHOR'S ORGANIZ ATION 07/15/2021 [facility] DATE CREATED AUTHOR AUTHOR'S ORGANIZ ATION 04/27/2024 [facility] DATE CREATED AUTHOR AUTHOR'S ORGANIZ ATION 05/15/2024 [facility] DATE CREATED AUTHOR AUTHOR'S ORGANIZ ATION 05/16/[address] 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 Relationship Specialty Start Date End Date Jhon Rosas DO [address], [facility] [place] [address] PCP - General Family Medicine 11/08/19 [employer] Relationship Specialty Start Date End Date Jhon Rosas DO [address], [facility] [address] PCP - General Family Medicine 11/08/19 [employer]ar[employer]uncher Relationship Specialty Start Date End Date Jhon Rosas DO [address], [place] [address] PCP - General Family Medicine 11/08/19 [employer] Relationship Specialty Start Date End Date Jhon Rosas DO [address], [place] [address] PCP - General Family Medicine 11/08/19 [employer]ar[employer] Buncher Relationship Specialty Start Date End Date Jhon Rosas DO [address], [place] [address] PCP - General Family Medicine 11/08/19 [employer] Relationship Specialty Start Date End Date BrienninoskaJhon block DO [address], [place] [address] PCP - General Family Medicine 11/08/19 [employer] Relationship Specialty Start Date End Date Jhon Rosas DO [address], [place] [address] PCP - General Family Medicine 11/08/19 [employer]ar[employer] Relationship Specialty Start Date End Date Jhon Rosas DO [address], [place] [address] PCP - General Family Medicine 11/08/19 [employer]ar[employer]uncher Relationship Specialty Start Date End Date Jhon Rosas DO [address] [place] [address] PCP - General Family Medicine 11/08/19 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 Relationship Specialty Start Date End Date BrienninoskaJhon block DO [address], [place] [address] PCP - [facility] Family Medicine 11/08/19 Asparagus Buncher Relationship Specialty Start Date End Date Jhon Rosas DO [address], [place] [address] PCP - [facility] 11/08/19 Asparagus Buncher Relationship Specialty Start Date End Date Jhon Rosas DO [address] [place] [address] PCP - [facility] Family [facility] 11/08/19 FOR RECORDS PERTAINING TO PATIENTS WHO [...] BE BASED ON THE PRIMARY CLINICAL RECORDS. [employer] [facility]. provides no warranty or guarantee of the accuracy or completeness of information in this document.
[2024-06-23] MEDS: KETOROLAC TROMETHAMINE 30 MG/ML VIAL 15 MG IVP (11:11)
[2024-06-23] MEDS: ONDANSETRON PF 4 MG/2 ML VIAL IV (11:12)
[2024-06-23 11:17] LABS: Basophils Absolute Auto 0.1 10^3/uL (0.0-0.1); Basophils Percent Auto 0.6 % (0.2-2.0); Eosinophils Absolute Auto 0.1 10^3/uL (0.0-0.7); Eosinophils Percent Auto 0.6 % (0.9-7.0); Hematocrit 44.5 % (36.0-48.0); Hemoglobin 14.7 g/dL (12.0-16.0); Immature Granulocytes Abs Auto 0.04 10^3/uL (0.00-0.03); Immature Granulocytes Pct Auto 0.3 % (0.0-0.5); Lymphocytes Absolute Auto 1.9 10^3/uL (1.2-3.8); Lymphocytes Percent Auto 15.7 % (20.5-60.0); Mean Corpuscular Hemoglobin 28.6 pg (26.7-34.0); Mean Corpuscular Volume 86.6 fL (81.0-99.0); Mean Platelet Volume 10.5 fL (9.5-13.5); Monocytes Absolute Auto 0.5 10^3/uL (0.3-0.8); Monocytes Percent Auto 4.4 % (1.7-12.0); Neutrophils Absolute Auto 9.6 10^3/uL (1.4-6.5); Neutrophils Percent Auto 78.4 % (43.0-75.0); Platelet Count 250 10^3/uL (150-450); Red Blood Count 5.14 10^6/uL (4.20-5.40); Red Cell Distribution Width 12.4 % (11.0-15.0); White Blood Count 12.3 10^3/uL (4.0-11.0)
[2024-06-23 11:19] LABS: Bilirubin Urine NEGATIVE (NEGATIVE); Blood Urine NEGATIVE (NEGATIVE); Clarity Urine CLEAR (CLEAR); Color Urine YELLOW (YELLOW); Glucose Urine UA NEGATIVE (NEGATIVE); Ketones Urine TRACE mg/dL (NEGATIVE); Leukocyte Esterase Urine NEGATIVE (NEGATIVE); Nitrite Urine NEGATIVE (NEGATIVE); Protein Urine TRACE mg/dL (NEG/TRACE); pH Urine 6.5 (5.0-9.0)
--- NOTE | 2024-06-23 11:20 | ED.GENADUL1 ---
HPI HPI - General Adult General Chief complaint: Abdominal Pain Stated complaint: flank pain Time Seen by Provider: 06/23/24 10:48 Mode of arrival: walk-in History of Present Illness HPI narrative: Patient presents to ED complaining of right lower quadrant abdominal pain. She said it also radiates into her right flank. She said this started on Friday but has not gotten any better. She does have a history of a mass in the right abdomen that they have been monitoring. She has had an MRI on this mass and she also is scheduled for an ultrasound in July. She said she also has a history of kidney stones and is not sure if she has a kidney stone now. She said the pain has been causing nausea and she has had trouble sleeping due to the pain. She does not have her appendix anymore. She does have her ovaries but not her uterus. Patient denies fevers and has not been vomiting. She also reports that she has been urinating frequently but only small amounts come out at a time. No chest pain no shortness of breath no cough Related Data Home Medications ?Medication ?Instructions ?Recorded ?Confirmed metoprolol succinate 50 mg 50 mg PO DAILY 05/19/23 06/23/24 tablet,extended release 24 hr Previous Rx's ?Medication ?Instructions ?Recorded acetaminophen 300 mg-codeine 30 mg 1 tab PO Q6H PRN pain 5 days #20 05/19/23 tablet tabs ibuprofen 800 mg tablet 800 mg PO Q8H PRN pain #20 tabs 05/19/23 ketorolac 10 mg tablet 10 mg PO TID PRN pain #10 tabs 04/23/24 methocarbamol 750 mg tablet 750 mg PO TID PRN pain #20 tabs 04/23/24 Allergies Allergy/AdvReac Type Severity Reaction Status Date / Time No Known Drug Allergies Allergy Verified 05/19/23 09:59 Opioid HPI Opioid Management Most Recent Opioid Data: Last Pain Scale 5 06/23/24 11:20 06/23/24 Review of Systems ROS Status of ROS 10 or more systems reviewed and unremarkable except as noted in history and below PFSH PFSH Social History Smoking status: Heavy tobacco smoker Little interest or pleasure in doing things: not at all Feeling down, depressed, or hopeless: not at all Exam Narrative Exam Narrative: Time Seen: [] Vital Signs: [Per nurse's notes.] General: [Alert] Skin: [Warm, dry, no rash.] Head: [Normocephalic, atraumatic.] Neck: [Supple, trachea midline.] Eye: [Pupils are equal, round and reactive to light, extraocular movements are intact, normal conjunctiva.] Ears, nose, mouth and throat: oral mucosa moist. Cardiovascular: [Regular rate and rhythm, no murmur.] Respiratory: [Lungs are clear to auscultation, respirations are non-labored, breath sounds are equal.] Chest wall: [No tenderness, no deformity.] Gastrointestinal: [Soft, mild right lower quadrant tenderness and right flank pain, non distended, normal bowel sounds.] MSK: 5 out of 5 muscle strength x 4 extremities no calf pain or edema Lymphatics: [No lymphadenopathy.] Psychiatric: [Cooperative, appropriate mood & affect.] Neurological: [Alert and oriented to person, place, time, and situation, no focal neurological deficit observed.] Constitutional Vital Signs, click to edit/add: Last Vital Signs Temp 98.0 F 06/23/24 10:49 Pulse 96 H 06/23/24 12:04 Resp 18 06/23/24 12:04 BP 138/66 06/23/24 12:04 Pulse Ox 97 06/23/24 12:04 O2 Del Method Room Air 06/23/24 10:49 Course Vital Signs Vital signs: Vital Signs Temperature 98.0 F 06/23/24 10:49 Pulse Rate 101 H 06/23/24 10:49 Respiratory Rate 18 06/23/24 10:49 Blood Pressure 144/99 H 06/23/24 10:49 Pulse Oximetry 97 06/23/24 10:49 Oxygen Delivery Method Room Air 06/23/24 10:49 Temperature 98.0 F 06/23/24 10:49 Pulse Rate 96 H 06/23/24 12:04 Respiratory Rate 18 06/23/24 12:04 Blood Pressure 138/66 06/23/24 12:04 Pulse Oximetry 97 06/23/24 12:04 Oxygen Delivery Method Room Air 06/23/24 10:49 Medical Decision Making MDM Narrative Medical decision making narrative: Labs are negative for acute findings. CT abdomen pelvis does not show anything acute or new. She has a known renal cyst which is being followed. She is supposed to be scheduled in July for an ultrasound. No other acute findings here today to cause the pain. No UTI no pyelonephritis. Patient instructed to take Tylenol Motrin for pain return to ED if worsening symptoms otherwise follow-up outpatient. Patient comfortable care plan for home Differential Diagnosis Differential Diagnosis: UTI kidney stone pyelonephritis abdominal pain Lab Data Lab results reviewed: Yes I reviewed the patient's lab results Labs: Lab Results 06/23/24 06/23/24 Range/Units 11:03 11:07 WBC 12.3 H (4.0-11.0) 10^3/uL RBC 5.14 (4.20-5.40) 10^6/uL Hgb 14.7 (12.0-16.0) g/dL Hct 44.5 (36.0-48.0) % MCV 86.6 (81.0-99.0) fL MCH 28.6 (26.7-34.0) pg MCHC 33.0 (29.9-35.2) g/dL RDW 12.4 (11.0-15.0) % Plt Count 250 (150-450) 10^3/uL MPV 10.5 (9.5-13.5) fL Neut % (Auto) 78.4 H (43.0-75.0) % Lymph % (Auto) 15.7 L (20.5-60.0) % Cameron % (Auto) 4.4 (1.7-12.0) % Eos % (Auto) 0.6 L (0.9-7.0) % Baso % (Auto) 0.6 (0.2-2.0) % Neut # (Auto) 9.6 H (1.4-6.5) 10^3/uL Lymph # (Auto) 1.9 (1.2-3.8) 10^3/uL Cameron # (Auto) 0.5 (0.3-0.8) 10^3/uL Eos # (Auto) 0.1 (0.0-0.7) 10^3/uL Baso # (Auto) 0.1 (0.0-0.1) 10^3/uL Abs Immat Gran (auto) 0.04 H (0.00-0.03) 10^3/uL Imm/Tot Granulo (auto) 0.3 (0.0-0.5) % Sodium 139 (136-145) mmol/L Potassium 3.8 (3.5-5.1) mmol/L Chloride 105 (98-107) mmol/L Carbon Dioxide 26.5 (21.0-32.0) mmol/L Anion Gap 11.3 BUN 9.0 (7.0-18.0) mg/dL Creatinine 0.93 (0.55-1.02) mg/dL Est GFR ( Amer) >60 (>=60 mL/min/1.73m^2) Est GFR (Non-Af Amer) >60 (>=60 mL/min/1.73m^2) BUN/Creatinine Ratio 9.7 Glucose 102 (74-106) mg/dL Calcium 9.2 (8.5-10.1) mg/dL Total Bilirubin 0.3 (0.2-1.0) mg/dL AST 14 L (15-37) U/L ALT 19 (14-59) U/L Alkaline Phosphatase 123 H (46-116) U/L Total Protein 7.7 (6.4-8.2) g/dL Albumin 3.7 (3.4-5.0) g/dL Globulin 4.0 g/dL Albumin/Globulin Ratio 0.9 Urine Color Yellow (YELLOW) Urine Clarity Clear (CLEAR) Urine pH 6.5 (5.0-9.0) Ur Specific [place] 1.020 (1.005-1.025) Urine Protein Trace (NEG/TRACE) mg/dL Urine Glucose (UA) Negative (NEGATIVE) mg/dL Urine Ketones Trace A (NEGATIVE) mg/dL Urine Occult Blood Negative (NEGATIVE) Urine Nitrite Negative (NEGATIVE) Urine Bilirubin Negative (NEGATIVE) Urine Urobilinogen 1.0 (0.2-1.0) EU/dL Ur Leukocyte Esterase Negative (NEGATIVE) Imaging Data CT scan - abdomen: Attestation: I have reviewed the pertinent imaging results. Discharge Plan Discharge Chief Complaint: Abdominal Pain Clinical Impression: Abdominal pain Patient Disposition: Home, Self-Care Time of Disposition Decision: 11:56 Condition: Good Mode of Transportation: Private Vehicle Prescriptions / Home Meds: No Action ketorolac 10 mg tablet 10 mg PO TID PRN (Reason: pain) Qty: 10 0RF methocarbamol 750 mg tablet 750 mg PO TID PRN (Reason: pain) Qty: 20 0RF metoprolol succinate 50 mg tablet extended release 24 hr 50 mg PO DAILY acetaminophen-codeine 300-30 mg tablet 1 tab PO Q6H PRN (Reason: pain) 5 Days Qty: 20 0RF ibuprofen 800 mg tablet 800 mg PO Q8H PRN (Reason: pain) Qty: 20 0RF Print Language: Spanish Instructions: Abdominal Pain (ED) Referrals: NAVDEEP GERARD [Primary Care Provider] - 1 week Discharge Date/Time: 06/23/24 12:05
[2024-06-23 11:26] LABS: Urine Microscopic Indicated NO
[2024-06-23 11:37] LABS: Alanine Aminotransferase 19 U/L (14-59); Albumin Globulin Ratio 0.9; Albumin Level 3.7 g/dL (3.4-5.0); Alkaline Phosphatase 123 U/L (46-116); Anion Gap 11.3; Aspartate Amino Transferase 14 U/L (15-37); BUN Creatinine Ratio 9.7; Bilirubin Total 0.3 mg/dL (0.2-1.0); Calcium 9.2 mg/dL (8.5-10.1); Carbon Dioxide 26.5 mmol/L (21.0-32.0); Chloride 105 mmol/L (98-107); Estimated GFR (African America >60 (>=60 mL/min/1.73m^2); Estimated GFR (Non-African Ame >60 (>=60 mL/min/1.73m^2); Glucose 102 mg/dL (74-106); Potassium 3.8 mmol/L (3.5-5.1); Sodium 139 mmol/L (136-145); Total Protein 7.7 g/dL (6.4-8.2)
[2024-06-23 12:04] VITALS: BP 138/66; PULSE 96; O2SAT 97
== END 2024-06-23 12:05 | disposition home or self-care (01) ==
PROVIDERS: Emergency Provider Emergency Medicine; PCP Family Medicine
DX: R10.31 Right lower quadrant pain (principal); Z87.442 Personal history of urinary calculi; Z90.710 Acquired absence of both cervix and uterus; F17.200 Nicotine dependence, unspecified, uncomplicated; N28.1 Cyst of kidney, acquired
CPT/HCPCS: 36415; 74176; 80053; 81003; 85025; 96374; 96375; 99284; J1885; J2405

== ENCOUNTER 2024-06-24 14:12 | Outpatient (OUT) | payer OTHER, SELFPAY ==
--- NOTE | 2024-06-24 14:24 | XR_ITS ---
[facility] [place] [id number] Patient Name: VEENA BUENO MRN: [id number] date: 1965 Sex: F Assigned Patient Location: [facility] Current Patient Location: [facility] Accession/Order Number: [id number] Exam Date: 06/24/2024 15:31 Report Date: 06/24/2024 15:34 At the request of: NAVDEEP GERARD Procedure: XR lumbar spine 2-3V LUMBAR SPINE - 4 views CLINICAL HISTORY: Lumbar pain radiating into right groin for one week. No known injury. COMPARISON: None FINDINGS: Vertebral body heights appear maintained. Bones are grossly pneumatized. Mild disc space narrowing L5-S1. Diffuse facet joint degenerative changes. SI joints demonstrate mild degenerative change. XR/XR lumbar spine 2-3V IMPRESSION: DEGENERATIVE CHANGES INVOLVING THE LUMBAR SPINE WITH MILD DISC SPACE NARROWING L5-S1. Impression dictated by: Leonardo Santo Jr., D.O.06/24/2024 3:34 PM Dictation Location: [place] [address] Electronically authenticated by: [id number] Y Date: 06/24/2024 15:34
--- OUTSIDE RECORDS SUMMARY | 2024-06-24 14:33 | XMS_ITS | CCD ---
Author Organization [facility] Care Team Providers Care Sanitation Superintendent Name Role Phone KIRNUS, DINORA Unavailable Unavailable [...] 05-13-2024 Albumin [Mass/Vol] 4.3 g/dL Normal 3.2-5.3 [facility] Comment on above: Performed By: #### Quique ROSALES, 40275-3 #### [facility] ([id number]) [address] [place] [address] ALP [Catalytic activity/Vol] 92 U/L Normal 39-130 [facility] Comment on above: Performed By: #### Quique ROSALES, 19833-6 #### [facility] ([id number]) [address] [place] [address] ALT [Catalytic activity/Vol] 10 U/L Normal 0-31 [facility] Comment on above: Performed By: #### Quique ROSALES, 12686-3 #### [facility] ([id number]) [address] [place] [address] Anion gap [Moles/Vol] 6 mmol/L Normal 5-15 [facility] Comment on above: Performed By: #### Quique ROSALES, 74849-9 #### [facility] ([id number]) [address] [place] [address] AST [Catalytic activity/Vol] 13 U/L Normal 0-41 [facility] Comment on above: Performed By: #### Quique ROSALES, 63982-5 #### [facility] ([id number]) [address] [place] [address] Bilirubin [Mass/Vol] 0.5 mg/dL Normal 0.3-1.2 [facility] Comment on above: Performed By: #### Quique ROSALES 37672-6 #### [facility] ([id number]) [address] [place] [address] Calcium [Mass/Vol] 9.2 mg/dL Normal 8.5-10.5 [facility] Comment on above: Performed By: #### Quique ROSALES 24857-9 #### [facility] ([id number]) [address] [place] [address] Chloride [Moles/Vol] 107 mmol/L Normal 98-109 [facility] Comment on above: Performed By: #### Quique ROSALES 06625-5 #### [facility] ([id number]) [address] [place] [address] CO2 [Moles/Vol] 30 mmol/L Normal 22-32 [facility] Comment on above: Performed By: #### Quique ROSALES 96538-8 #### [facility] ([id number]) [address] [place] [address] Creatinine [Mass/Vol] 0.82 mg/dL Normal 0.40-1.00 [facility] Comment on above: Result Comment: METH OD TRACEABLE TO IDMS STANDARD Performed By: #### C BOBBY, 93586-5 #### [facility] ([id number]) [address] [place] [address] GFR/1.73 sq M.predicted among non-blacks MDRD (S/P/Bld) [Vol rate/Area] 82 mL/min/{1.73_m2} Normal >59 [facility] Comment on above: Result Comment: Reported eGFR is based on the CKD-EPI 2020 equation that does not use a race coefficient. Performed By: #### Quique ROSALES, 30653-5 #### [facility] ([id number]) [address] [place] [address] Glucose [Mass/Vol] 91 mg/dL Normal 65-99 [facility] Comment on above: Performed By: #### Quique ROSALES, 13950-2 #### [facility] ([id number]) [address] [place] [address] Potassium [Moles/Vol] 4.4 mmol/L Normal 3.5-5.0 [facility] Comment on above: Performed By: #### Quique ROSALES, 05732-1 #### [facility] ([id number]) [address] [place] [address] Protein [Mass/Vol] 6.9 g/dL Normal 6.0-8.0 [facility] Comment on above: Performed By: #### Quique ROSALES, 54481-7 #### [facility] ([id number]) [address] [place] [address] Sodium [Moles/Vol] 143 mmol/L Normal 134-146 [facility] Comment on above: Performed By: #### Quique ROSALES, 26930-5 #### [facility] ([id number]) [address] [place] [address] Urea nitrogen [Mass/Vol] 13 mg/dL Normal 5-23 [facility] Comment on above: Performed By: #### Quique ROSALES, 50683-1 #### [facility] ([id number]) [address] [place] [address] Lipid 1996 panelon 5 Cholesterol [Mass/Vol] 222 mg/dL High 150-200 [facility] Comment on above: Performed By: #### Quique ROSALES, 35073-3 #### [facility] ([id number]) [address] [place] [address] Cholesterol in HDL [Mass/Vol] 49 mg/dL Normal >39 [facility] Comment on above: Result Comment: HDL <40 mg/dL - High Risk HDL > or = 40mg/dL- Desirable HDL >60 mg/dL - Negative Risk Performed By: #### Quique ROSALES, 21417-6 #### [facility] ([id number]) [address] [place] [address] Cholesterol in LDL [Mass/Vol] 116 mg/dL Normal <130 [facility] Comment on above: Result Comment: LDL <100 mg/dL - Desirable LDL >160 mg/dL - High Risk Performed By: #### Quique ROSALES, 44530-3 #### [facility] ([id number]) [address] [place] [address] Cholesterol in VLDL [Mass/Vol] 57 mg/dL High 0-30 [facility] Comment on above: Performed By: #### C BOBBY, 23150-8 #### [facility] ([id number]) [address] [place] [address] CHOLESTEROL:HDL 4.5 Normal 1.0-5.0 [facility] Comment on above: Performed By: #### C BOBBY, 37143-6 #### [facility] ([id number]) [address] [place] [address] Triglyceride [Mass/Vol] 286 mg/dL High 27-150 [facility] Comment on above: Performed By: #### C BOBBY, 89975-3 #### [facility] ([id number]) [address] [place] [address] MAMM SCREENING BILATERAL W C pile header 04-22-2024 MAMM SCREENING BILATERAL W CAD MAMM SCREENING BILATERAL W CAD ANAYA SERRANO 1965 [id number] EXAM: MAMM SCREENING BILATERAL W CAD, 04/21/2024 [...] AM 1 c MOLEC BR IMG Normal [facility] POCT Influenza A/Influenza B /SARS-COV-2 Veritoron 04-09-2024 External Poct Influenza A Antigen Positive [facility] External Poct Influenza B Antigen Negative [facility] SARS-CoV-2 (COVID-19) Ag IA.rapid Ql (Resp) Negative [facility] COMPREHENSIVE METABOLIC PANE Seven 07-13-2021 Albumin [Mass/Vol] 4.5 g/dL Normal 3.6-5.1 [facility] Comment on above: Performed By: #### 1 0231, 7600 #### [facility] [place] [address] Waste Removalist: Clarence Burnett MD Albumin/Globulin [Mass ratio] 1.8 {ratio} Normal 1.0-2.5 [facility] Comment on above: Performed By: #### 1 0231, 7600 #### [facility] [place] [address] Waste Removalist: Clarence Burnett MD ALP [Catalytic activity/Vol] 96 U/L Normal 37-153 [facility] Comment on above: Performed By: #### 1 0231, 7600 #### [facility] [place] [address] Waste Removalist: Clarence Burnett MD ALT [Catalytic activity/Vol] 9 U/L Normal 6-29 [facility] Comment on above: Performed By: #### 1 0231, 7600 #### [facility] [place] [address] Waste Removalist: Clarence Burnett MD AST [Catalytic activity/Vol] 12 U/L Normal 10-35 [facility] Comment on above: Performed By: #### 1 0231, 7600 #### [facility] [place] [id number] Waste Removalist: Clarence Burnett MD Bilirubin [Mass/Vol] 0.2 mg/dL Normal 0.2-1.2 [facility] Comment on above: Performed By: #### 1 0231, 7600 #### [facility] of [address], [address] [place] [address] Waste Removalist: Clarence Burnett MD BUN/CREATININE RATIO NOT APPLICABLE Normal 6-22 [facility] Comment on above: Performed By: #### 1 0231, 7600 #### [facility] of [address], [address] [place] [address] Waste Removalist: Clarence Burnett MD Calcium [Mass/Vol] 9.6 mg/dL Normal 8.6-10.4 [facility] Comment on above: Performed By: #### 1 023, 7600 #### [facility] [address], [address] [place] [address] Waste Removalist: Clarence Burnett MD Chloride [Moles/Vol] 99 mmol/L Normal 98-110 [facility] Comment on above: Performed By: #### 1 023, 7600 #### [facility] [place] [address] Waste Removalist: Clarence Burnett MD CO2 [Moles/Vol] 33 mmol/L High 20-32 [facility] Comment on above: Performed By: #### 1 0231, 7600 #### [facility] [address], [address] [place] [address] Waste Removalist: Clarence Burnett MD Creatinine [Mass/Vol] 0.76 mg/dL Normal 0.50-1.05 [facility] Comment on above: Result Comment: For patients >49 years of age, the reference limit for Creatinine is approximately 13% higher for people identified as -Chilean. Performed By: #### 1 0231, 7600 #### [facility] [address], [address] [place] [address] Waste Removalist: Clarence Burnett MD eGFR NON-AFR. BULGARIAN 88 mL/min/1.73m2 Normal > OR = 60 [facility] Comment on above: Performed By: #### 1 0231, 7600 #### [facility] [place] [address] Waste Removalist: Clarence Burnett MD GFR/1.73 sq M.predicted among blacks MDRD (S/P/Bld) [Vol rate/Area] 102 mL/min/{1.73_m2} Normal > OR = 60 [facility] Comment on above: Performed By: #### 1 023, 7600 #### [facility] [address], [address] [place] [address] Waste Removalist: Clarence Burnett MD Globulin (S) [Mass/Vol] 2.5 g/dL Normal 1.9-3.7 [facility] Comment on above: Performed By: #### 1 023, 7600 #### [facility] [address], [address] [place] [address] Waste Removalist: Clarence Burnett MD Glucose [Mass/Vol] 77 mg/dL Normal 65-139 [facility] Comment on above: Result Comment: Non-fasting reference interval Performed By: #### 1 0231, 7600 #### [facility] [place] [address] Waste Removalist: Clarence Burnett MD Potassium [Moles/Vol] 3.2 mmol/L Low 3.5-5.3 [facility] Comment on above: Performed By: #### 1 023, 7600 #### [facility] [place] [address] Waste Removalist: Clarence Burnett MD Protein [Mass/Vol] 7.0 g/dL Normal 6.1-8.1 [facility] Comment on above: Performed By: #### 1 023, 7600 #### [facility] [place] [address] Waste Removalist: Clarence Burnett MD Sodium [Moles/Vol] 138 mmol/L Normal 135-146 [facility] Comment on above: Performed By: #### 1 0231, 7600 #### [facility] [address], [address] [place] [address] Waste Removalist: Clarence Burnett MD Urea nitrogen [Mass/Vol] 16 mg/dL Normal 7-25 [facility] Comment on above: Performed By: #### 1 0231, 7600 #### [facility] [address], [address] [place] [address] Waste Removalist: Clarence Burnett MD LIPID PANEL, [facility] 04-0 Cholesterol [Mass/Vol] 226 mg/dL High <200 [facility] Comment on above: Order Comment: FASTI NG:NO FASTING: NO Performed By: #### 1 0231, 7600 #### [facility] [address], [address] [place] [address] Waste Removalist: Clarence Burnett MD Cholesterol in HDL [Mass/Vol] 52 mg/dL Normal > OR = 50 [facility] Comment on above: Order Comment: FASTI NG:NO FASTING: NO Performed By: #### 1 0231, 7600 #### [facility] [address], [address] [place] [address] Waste Removalist: Clarence Burnett MD Cholesterol in LDL [Mass/Vol] [...] LDL-C. Suman SS et al. AMADO. 2013;310(19): 8548-0293 (http://education.Evergage.QualiLife/faq/IKJ078) Performed By: #### 1 0231, 7600 #### [facility] [address], [address] [place] [address] Waste Removalist: Clarence Burnett MD Cholesterol.total/ Cholesterol in HDL [Mass ratio] 4.3 {ratio} Normal <5.0 [facility] Comment on above: Order Comment: FASTI NG:NO FASTING: NO Performed By: #### 1 0231, 7600 #### [facility] [address], [address] [place] [address] Waste Removalist: Clarence Burnett MD NON HDL CHOLESTEROL 174 mg/dL (calc) High <130 [facility] Comment on above: Order Comment: FASTI NG:NO FASTING: NO Result Comment: For patients with diabetes plus 1 major ASCVD risk factor, treating to a non-HDL-C goal of <100 mg/dL (LDL-C of <70 mg/dL) is considered a therapeutic option. Performed By: #### 1 023, 7600 #### [facility] [address], [address] [place] [address] Waste Removalist: Clarence Burnett MD Triglyceride [Mass/Vol] 354 mg/dL High <150 [facility] Comment on above: Order Comment: FASTI NG:NO FASTING: NO Result Comment: If a non-fasting specimen was collected, consider repeat triglyceride testing on a fasting specimen if clinically indicated. Huber et al. J. of Clin. Lipidol. 2015;9:129-169. Performed By: #### 1 230, 0 #### [facility] [address], [address] [place] [address] Waste Removalist: Clarence Burnett MD [facility] 06-01-2021 Employed in healthcare? Unknown Normal [facility] Comment on above: Performed By: #### C D:[id number] #### [address] [address] Group care resident? Unknown Normal [facility] Comment on above: Performed By: #### C D:[id number] #### [address] [address] In ICU? Unknown Normal [facility] Comment on above: Performed By: #### C D:[id number] #### [address] [place] [address] status? Unknown Normal [facility] Comment on above: Performed By: #### C D:[id number] #### [facility] [address] [place] [address] SARS-CoV-2 (COVID-19) RNA HA+probe Ql (Unsp spec) Negative Normal Negative [facility] Comment on above: Result Comment: The 2019 novel coronavirus SARS-CoV-2 target nucleic acids are not detected. The R&L? SARS-CoV-2 Assay is a qualitative, multiplex, real-time PCR-based in vitro diagnostic test intended for the detection of SARS-CoV-2 nucleic acid in nasopharyngeal swab (DELIVERY TECHNICIAN) specimens from individuals suspected of having COVID-19. The R&L? SARS-CoV-2 Assay detects SARS-CoV-2 viral RNA from nasopharyngeal swab (DELIVERY TECHNICIAN) samples. SARS-CoV-2 RNA is generally detectable in DELIVERY TECHNICIAN specimens during the acute phase of infection. Positive results are indicative of the presence of SARS-CoV-2 RNA; clinical correlation with patient history and other diagnostic information is necessary to determine patient infection status. Positive results do not rule out bacterial infection or co-infection with other viruses. The agent detected may not be the definite cause of disease. Laboratories within the [facility] and its territories are required to report all positive results to the appropriate public health authorities. Negative results do not preclude SARS-CoV-2 infection and should not be used as the sole basis for patient management decisions. Negative results must be combined with clinical observations, patient history, and epidemiological information. The R&L? SARS-CoV-2 Assay is intended for use on [employer] by trained clinical laboratory personnel who are specifically instructed and trained in in vitro diagnostic procedures. This R&L SARS-CoV-2 Assay has been modified from the core carrier?s instructions to allow for nasal swab (anterior Nares) collection. An independent bridging study for nasal swab collection was performed by [facility], a [place] laboratory certified to perform [...] sooner. Fact sheet for Health Care Providers: https://www.fda.gov/media/115433/download Fact sheet for Patients: https://www.fda.gov/media/001768/download Performed By: #### C D:[id number] #### [address] [address] SARS-CoV-2 (COVID-19) RNA HA+probe Ql (Unsp spec) Unknown Normal [facility] Comment on above: Performed By: #### C [id number] #### [address] [address] Symptomatic as defined by CDC? Unknown Normal [facility] Comment on above: Performed By: #### C D:[id number] #### [address] [address] [facility] SARS-CoV-2 (COVID-19) RNA HA+probe Ql (Unsp spec) Detected Critically abnormal NOT DETECTED [facility] Comment on above: Result Comment: This test is not yet approved or cleared by the [place] FDA. When there are no FDA-approved or cleared tests available, and other criteria are met, FDA can make tests available under an emergency access mechanism called an Emergency Use Authorization (EUA). The EUA for this test is supported by the [place] of Health and Human Service's (HHS's) declaration [...] used). Performed By: #### C VDTB #### [facility] [address] [place] [address] [address] Lashay Nesbitt TSH W/REFLEX TO FT4on 2020 TSH W/REFLEX TO FT4 1.12 mIU/L Normal [facility] Comment on above: Result Comment: Refe rence Range > or = 20 Years 0.40-4.50 Ranges First trimester 0.26-2.66 Second trimester 0.55-2.73 Third trimester 0.43-2.91 Performed By: #### 3 6127 #### [facility] [address] [facility], [address] [place] [address] Waste Removalist: Clarence Burnett MD Creatinineon 01-15-2017 Creatinine 0.86 mg/dL Normal 0.50-1.05 [facility] Comment on above: Performed By: #### 1 165932 ####[facility] [address] [place] [address] eGFR (MDRD) mL/min/{1.73_m2} Normal [facility] Comment on above: Result Comment: Inte rpretation for Chronic Kidney Disease:Stages 1&2 >60 Healthy or potential kidney damage.Mild decrease of GFR.Stage 3 30-59 Moderate decrease of GFR.Stage 4 15-29 Severe decrease of GFR.Stage 5 <15 Kidney failure or on dialysis. Performed By: #### 1 [id number] ####[facility] [address] [place] [address] Electrolyte Panelon 01-16-20 17 Anion gap 14 mmol/L Normal 10-20 [facility] Comment on above: Performed By: #### 1 048864 ####[facility] [address] [place] [address] Bicarbonate (HCO3) 30 mmol/L Normal 21-32 [facility] Comment on above: Performed By: #### 1 [id number] ####[facility] [address] [place] [address] Chloride 98 mmol/L Normal 98-107 [facility] Comment on above: Performed By: #### 1 [id number] ####[facility] [address] [place] [address] Potassium molar conc 3.6 mmol/L Normal 3.5-5.1 [facility] Comment on above: Performed By: #### 1 900675 ####[facility] [address] [place] [address] Sodium 138 mmol/L Normal 136-145 [facility] Comment on above: Performed By: #### 1 166681 ####[facility] [address] [place] [address] Urea Nitrogenon 01-15-2017 Urea nitrogen 16 mg/dL Normal 6-23 [facility] are Comment on above: Performed By: #### 1 [id number] ####[facility] [address] [place] [address] Vital Signs Date Time Vital Sign Value Performing Clinician Facility 05-13-2024 13:15-0500 Body height 157.5 cm Shara Stapleton [employer] Work Phone: [facility] 05-13-2024 13:15-0500 Body mass index (BMI) [Ratio] 20.63 kg/m2 Sharamarlon Stapleton BE[employer]ER[employer] Work Phone: [facility] 05-13-2024 13:15-0500 Body temperature 98.6 [degF] Shara Stapleton [employer] Work Phone: [facility] 05-13-2024 13:15-0500 Body weight 51.17 kg Shara Stapleton [employer] Work Phone: [facility] 05-13-2024 13:15-0500 Diastolic blood pressure 70 mm[Hg] Shara Stapleton BE[employer] Work Phone: [facility] 05-13-2024 13:15-0500 Heart rate 70 /min Shara Stapleton [employer] Work Phone: [facility] 05-13-2024 13:15-0500 SaO2% (BldA) [Mass fraction] 99 % Shara Stapleton [employer] Work Phone: [facility] [employer] [facility] 05-13-2024 13:15-0500 Systolic blood pressure 108 mm[Hg] Shara Stapleton BELL [employer]ER[employer]INSPECT[employer] Work Phone: [facility] 04-30-2024 08:51-0500 Body height 157.5 cm Shara Stapleton [employer] Work Phone: [facility] 04-30-2024 08:51-0500 Body mass index (BMI) [Ratio] 20.52 kg/m2 Shara Stapleton BE[employer] Work Phone: [facility] [employer] [facility] 04-30-2024 08:51-0500 Body temperature 98.01 [degF] Shara Stapleton BELL [employer]ER[employer]INSPECT[employer] Work Phone: [facility] [employer] [facility] [employer] 04-30-2024 08:51-0500 Body weight 50.89 kg Shara Stapleton BE[employer] Work Phone: [facility] 04-30-2024 08:51-0500 Diastolic blood pressure 90 mm[Hg] Shara Stapleton BELL [employer] Work Phone: [facility] 04-30-2024 08:51-0500 Heart rate 64 /min Shara Stapleton BE[employer] Work Phone: [facility] [employer] [facility] 04-30-2024 08:51-0500 Respiratory rate 18 /min Shara Stapleton BELL [employer]ER[employer] Work Phone: [facility] 04-30-2024 08:51-0500 SaO2% (BldA) [Mass fraction] 99 % Shara Stapleton BE[employer]ER[employer] Work Phone: [facility] [employer] [facility] 04-30-2024 08:51-0500 Systolic blood pressure 130 mm[Hg] Shara Stapleton BELL [employer]ER[employer]INSPECT[employer] Work Phone: [facility] [employer] [facility] 04-09-2024 11:52-0500 Body height 157.5 cm Sharamarlon Stapleton BE[employer] Work Phone: [facility] [employer] [facility] 04-09-2024 11:52-0500 Body mass index (BMI) [Ratio] 20.43 kg/m2 Shara Stapleton BELL [employer]KER[employer]INS[employer] Work Phone: [facility] [employer] [facility] 04-09-2024 11:52-0500 Body temperature 99.7 [degF] Shara Stapleton BELL [employer]KER[employer]INS[employer] Work Phone: [facility] 04-09-2024 11:52-0500 Body weight 50.67 kg Shara Stapleton BELL [employer]KER[employer] Work Phone: [facility] [employer] [facility] 04-09-2024 11:52-0500 Diastolic blood pressure 56 mm[Hg] Shara Stapleton BELL [employer]KER[employer]INS[employer] Work Phone: [facility] [employer] [facility] [employer] 04-09-2024 11:52-0500 Heart rate 74 /min Shara Stapleton APRN-INSPECTOR [employer] Work Phone: [facility] 04-09-2024 11:52-0500 Respiratory rate 18 /min Shara Stapleton BELL [employer]INS[employer] Work Phone: [facility] [employer] [facility] 04-09-2024 11:52-0500 SaO2% (BldA) [Mass fraction] 96 % Shara Stapleton APRN-INSPECTOR [employer] Work Phone: [facility] [employer] [facility] 04-09-2024 11:52-0500 Systolic blood pressure 126 mm[Hg] Shara Stapleton BE[employer]ER[employer] Work Phone: [facility] [employer] [facility] 05-21-2023 12:02-0500 Body height 157.5 cm Shayla Ho BELL MAKER-PROTOZOOLOGIST Work Phone: [facility] [employer] 05-21-2023 12:02-0500 Body mass index (BMI) [Ratio] 21.62 kg/m2 Shayla Ho BELL MAKER-PROTOZOOLOGIST Work Phone: [facility] [employer]now [employer] [facility] 05-21-2023 12:02-0500 Body temperature 98.01 [degF] Shayla GIVENSPROTOZOOLOGIST Work Phone: [employer] 05-21-2023 12:02-0500 Body weight 53.62 kg Shayla GIVENSPROTOZOOLOGIST Work Phone: [employer] 05-21-2023 12:02-0500 Diastolic blood pressure 70 mm[Hg] Shayla GIVENSPROTOZOOLOGIST Work Phone: [employer] 05-21-2023 12:02-0500 Heart rate 64 /min Shayla GIVENSPROTOZOOLOGIST Work Phone: [employer] 05-21-2023 12:02-0500 SaO2% (BldA) [Mass fraction] 96 % Shayla GIVENSPROTOZOOLOGIST Work Phone: [facility] 05-21-2023 12:02-0500 Systolic blood pressure 118 mm[Hg] Shayla SEO Work Phone: [employer] 10-05-2021 12:00-0400 Body height 157.48 cm Cindy Avila Other [employer] Other 10-05-2021 12:00-0400 Body mass index (BMI) [Ratio] 22.86 kg/m2 Cindy Avila Other [employer] Other 10-05-2021 12:00-0400 Body temperature 98.1 [degF] Cindy Avila Other [employer] Other 10-05-2021 12:00-0400 Body weight 56.7 kg Cinyd Avila Other [employer] Other 10-05-2021 12:00-0400 Diastolic blood pressure 68 mm[Hg] Cindy Avila Other [employer] Other 10-05-2021 12:00-0400 Respiratory rate 18 /min Cindy Avlia Other [employer] Other 10-05-2021 12:00-0400 SaO2% (BldA) [Mass fraction] 99 % Cindy Avila Other [employer] Other 10-05-2021 12:00-0400 Systolic blood pressure 103 mm[Hg] Cindy Avila Other [employer] Other 02-09-2021 11:15-0400 Body height 157.48 cm Araceli Cashmond Other [employer] Other 02-09-2021 11:15-0400 Body mass index (BMI) [Ratio] 21.03 kg/m2 Araceli Mechelle Other [employer] Other 02-09-2021 11:15-0400 Body temperature 97.2 [degF] Araceli Cashmond Other [employer] Other 02-09-2021 11:15-0400 Body weight 52.16 kg Araceli Cashmond Other [employer] Other 02-09-2021 11:15-0400 Respiratory rate 18 /min Araceli Cashmond Other [employer] Other 02-09-2021 11:15-0400 SaO2% (BldA) [Mass fraction] 97 % Araceli Mechelle Other [employer] Other Encounters Encounter Date Encounter Type Care Provider Facility Start: 05-31-2024 End: 05-31-2024 Merari Stapleton APRN-INSPECTOR [employer]UMBING Work Phone: [facility] Start: 05-17-2024 End: 05-17-2024 Orders Only Shara Stapleton BELL MAKER-INSPECTOR [employer]UMBING Work Phone: [facility] Start: 05-13-2024 End: 05-13-2024 ambulatory [facility] Start: 05-13-2024 Encounter for genera l adult medical examination without abnormal findings [facility] Start: 05-13-2024 End: 05-13-2024 ambulatory [facility] Start: 05-13-2024 Encounter for genera l adult medical examination without abnormal findings [facility] Start: 05-13-2024 End: 05-13-2024 Patient encounter status Shara Stapleton BELL MAKER-INSPECTOR [employer] Work Phone: [facility] [employer] [facility] Work Phone: Start: 05-13-2024 End: 05-13-2024 Periodic preventive med est patient 40-64yrs Shara Stapleton BELL MAKER-INSPECTOR [employer] Work Phone: [facility] Comment on above: Wellness examination (Primary Dx); Primary hypertension; Acute bilateral thoracic back pain; Smoking; Post herpetic neuralgia Start: 05-12-2024 End: 05-12-2024 Orders Only Shara Stapleton BELL MAKER-INSPECTOR [employer]UM[employer] Work Phone: [facility] Comment on above: Abnormal MRI, kidney (Primary Dx) Start: 04-30-2024 End: 04-30-2024 Office outpatient visit 15 minutes Shara Stapleton BELL MAKER-INSPECTOR [employer]UM[employer] Work Phone: [facility] Comment on above: Mid-back pain, acute (Primary Dx); Smoking; Renal mass Start: 04-30-2024 End: 04-30-2024 ambulatory [facility] Start: 04-26-2024 End: 04-28-2024 Refill Shara Stapleton BELL MAKER-INSPECTOR [employer]UM[employer]ING Work Phone: [facility] Start: 04-26-2024 End: 04-27-2024 Telephone encounter Wanda Flores [facility] - Family Medicine Start: 04-22-2024 End: 04-22-2024 Orders Only hSara Stapleton BELL MAKER-INSPECTOR [employer]UM[employer]ING [facility] Comment on above: Encounter for screen ing mammogram for malignant neoplasm of breast (Primary Dx) Start: 04-21-2024 End: 04-21-2024 ambulatory [facility] Start: 04-12-2024 End: 04-12-2024 Orders Only Shara Stapleton BELL MAKER-INSPECTOR [employer]UM[employer] [facility] Phone: [facility] Comment on above: Encounter for screen ing mammogram for malignant neoplasm of breast (Primary Dx) Start: 04-09-2024 End: 04-09-2024 Office outpatient visit 15 minutes Shara Stapleton BELL MAKER-INSPECTOR [employer]UM[employer]ING Work Phone: [facility] Comment on above: Influenza A (Primary Dx); Fever, unspecified fever cause; Smoking Start: 04-09-2024 End: 04-09-2024 ambulatory [facility] Start: 03-24-2024 End: 03-29-2024 Refill Jhon Rosas DO Work Phone: [facility] Start: 12-08-2023 End: 12-08-2023 Refill Wanda Flores [facility] Start: 08-04-2023 End: 08-05-2023 Refill Shara Stapleton BELL MAKER-INSPECTOR [employer]UM[employer]ING Work Phone: [facility] Start: 06-02-2023 Orders Only Shayla Cartagena Vic BELL MAKER-PROTOZOOLOGIST Work Phone: [facility] Start: 05-27-2023 Orders Only Shayla Cartagena Vic BELL MAKER-PROTOZOOLOGIST Work Phone: [facility] Start: 05-21-2023 End: 05-21-2023 ambulatory SHAYLA HO [facility] Start: 05-21-2023 End: 05-21-2023 Office outpatient visit 15 minutes Shayla Ho BELL MAKER-PROTOZOOLOGIST Work Phone: [facility] Comment on above: Chest wall pain (Lu shayla Dx); Herpes zoster with complication Start: 10-05-2021 End: 10-05-2021 ambulatory Cindy Avila Other [employer] Other Start: 10-05-2021 Office outpatient vi sit 15 minutes Cindy Avila [facility] Start: 06-01-2021 End: 06-02-2021 ambulatory JHON NAYAKGOPAL Facility:[facility] Start: 04-19-2021 End: 04-19-[address] [id number] Start: 02-09-2021 Office outpatient ne w 20 minutes Araceli Mechelle [facility] Start: 01-15-2017 Ambulatory DINORA KIRNUS Facility :[id number] Start: 01-15-2017 Ambulatory Jasmin Catalaner Facil [id number] Start: 12-18-2016 Ambulatory DINORA KIRNUS Facility :[id number] Start: 12-18-2016 Ambulatory Jasmin Catalaner Facil [id number] Procedures Date Procedure Procedure Detail Performing Clinician Start: 05-13-2024 Adult depression scr eening assessment Shara Stapleton BELL MAKER-INSPECTOR [employer]ING Work Phone: Start: 04-21-2024 Mammography Shara Ag ch BELL MAKER-INSPECTOR [employer] Work Phone: Start: 04-09-2024 POCT INFLUENZA A/INF LUENZA B/SARS-COV-2 VERITOR Shara Stapleton BELL MAKER-INSPECTOR [employer] Work Phone: Start: 04-09-2024 Adult depression scr eening assessment Shara Stapleton BELL MAKER-INSPECTOR [employer] Work Phone: Start: 05-21-2023 Adult depression scr eening assessment Shayla Ho BELL MAKER-PROTOZOOLOGIST Work Phone: Start: 07-03-2022 Mammography Shayla Ho BELL MAKER-PROTOZOOLOGIST Work Phone: Plan of Treatment Date Care Activity Detail Author Start: 05-27-2025 Tobacco Screening Tobacco Screening [facility] Start: 05-13-2025 Adult BMI Screening Adult BMI Screen ing [facility] Start: 05-13-2025 Depression Screening Depression Scre ening [facility] Start: 05-13-2025 Tobacco Screening Tobacco Screening [facility] Start: 04-30-2025 Adult BMI Screening Adult BMI Screen ing [facility] Start: 04-30-2025 Tobacco Screening Tobacco Screening [facility] Start: 04-21-2025 Adult BMI Screening Adult BMI Screen ing [facility] Start: 04-21-2025 Screening for malign ant neoplasm of breast Mammogram [facility] Start: 04-09-2025 Adult BMI Screening Adult BMI Screen ing [facility] Start: 04-09-2025 Depression Screening Depression Scre ening [facility] Start: 04-09-2025 Tobacco Screening Tobacco Screening [facility] Start: 12-15-2024 End: 12-15-2024 Patient encounter procedure 12/15/2024 8:30 AM EDT Appointment [facility] Nuclear Medicine [address] [place] [id number] [facility] Medicine Start: 08-10-2024 End: 05-12-2025 US Retroperitoneum limited Ultrasound retroperitoneal limited Imaging Routine Abnormal MRI, kidney Expected: 08/10/2024 (Approximate), Expires: 05/12/2025 [facility] Work Phone: Comment on above: Expected: 08/10/2024 (Approximate), Expires: 05/12/2025 Start: 06-04-2024 End: 06-04-2024 Admission to same day surgery center 06/04/2024 1:30 PM EST - 06/04/2024 2:30 PM EST Surgery [facility] [address] [place] [id number] Santo Rosenthal, DO [address] [place] [address] COLONOSCOPY DIAGNOSTIC / SCREENING [56063 (CPT )] [facility] Comment on above: COLONOSCOPY DIAGNOST IC / SCREENING [06814 (CPT )] Start: 06-04-2024 End: 06-04-2024 Anesthesia consultation 06/04/2024 1:30 PM EST Anesthesia Event [facility] [address] [place] [id number] Ramy Walker, DO [address] [place] [address] [facility] Start: 06-04-2024 End: 06-04-2024 Colonoscopy flx dx w/collj spec when pfrmd COLONOSCOPY DIAGNOSTIC / SCREENING Screen for colon cancer 06/04/2024 1:30 PM EST [facility] Start: 06-04-2024 Subsequent hospital visit by physician 06/04/2024 1:30 PM EST Hospital Encounter [facility] [address] [place] [id number] Santo Rosenthal, DO [address] [place] [address] Colon cancer screening (Primary Dx) [facility] Comment on above: Colon cancer screeni ng (Primary Dx) Start: 06-03-2024 End: 06-03-2024 ambulatory 06/03/2024 4:00 PM EST Support Visit [facility] [address] [place] [id number] [facility] Start: 05-21-2024 Adult BMI Screening Adult BMI Screen ing [facility] Start: 05-21-2024 Depression Screening Depression Scre ening [facility] Start: 05-21-2024 Tobacco Screening Tobacco Screening [facility] Start: 05-13-2024 End: 05-13-2025 Lipid 1996 panel - Serum or Plasma Lipid profile Lab Routine Wellness examination Expected: 05/13/2024 (Approximate), Expires: 05/13/2025 [facility] Comment on above: Expected: 05/13/2024 (Approximate), Expires: 05/13/2025 Start: 05-13-2024 End: 05-13-2025 XR Thoracic spine 3 Views X-ray spine thoracic 3 views Imaging Routine Acute bilateral thoracic back pain Expected: 05/13/2024, Expires: 05/13/2025 [employer] Work Phone: Comment on above: Expected: 05/13/2024 , Expires: 05/13/2025 Start: 05-13-2024 End: 05-13-2024 Patient encounter procedure 05/13/2024 1:00 PM EST [facility] [address] [place] [address] Shara Stapleton, BELL MAKER-INSPECTOR [employer]UMBING [address] [place] [address] [facility] Start: 04-30-2024 End: 04-30-2025 MR Abdomen WO and W contrast IV MR abdomen with and without contrast Imaging Routine Renal mass Expected: 04/30/2024, Expires: 04/30/2025 [employer] Work Phone: Comment on above: Expected: 04/30/2024 , Expires: 04/30/2025 Start: 04-30-2024 End: 04-30-2024 Patient encounter procedure 04/30/2024 9:00 AM EST Office Visit [facility] [address] [place] [address] Shara Stapleton, BELL MAKER-INSPECTOR [employer] [address] [place] [address] [facility] Start: 04-22-2024 End: 04-22-2025 NM Guidance limited for localization of tumor NM Molecular breast imaging localization limited area Imaging Routine Encounter for screening mammogram for malignant neoplasm of breast Expected: 04/22/2024, Expires: 04/22/2025 [facility] Work Phone: Comment on above: Expected: 04/22/2024 , Expires: 04/22/2025 Start: 04-21-2024 End: 04-21-2024 Patient encounter procedure 04/21/2024 2:00 PM EST Appointment [facility] [address] [place] [address] [facility] Start: 04-12-2024 End: 04-12-2025 DBT Breast - bilateral screening Mammography screening bilateral with CAD Imaging Routine Encounter for screening mammogram for malignant neoplasm of breast Expected: 04/12/2024, Expires: 04/12/2025 [facility] Work Phone: Comment on above: Expected: 04/12/2024 , Expires: 04/12/2025 Start: 01-20-2024 End: 01-20-2024 Patient encounter procedure 01/20/2024 3:30 PM EDT Office Visit [facility] [address] [place] [address] Jhon Rosas, [address], [place] [address] [facility] Start: 12-15-2023 Tobacco Counseling Tobacco Counselin elvin [facility] Start: 12-14-2023 Influenza vaccination Influenza Vacc ine [facility] Start: 08-30-2023 Administration of varicella zoster vaccine Zoster (Shingles) Vaccine (1 of 2) [facility] Comment on above: Postponed from 02/03 (Patient Refused) Start: 08-30-2023 Adult BMI Screening Adult BMI Screen ing [facility] Start: 08-30-2023 Depression Screening Depression Scre ening [facility] Start: 08-30-2023 DTaP,Tdap and Td Vac cines (1 - Tdap) DTaP,Tdap and Td Vaccines (1 - Tdap) [facility] Comment on above: Postponed from 02/03 (Patient Refused) Start: 08-30-2023 Tobacco Screening Tobacco Screening [facility] Start: 08-13-2023 Screening for malign ant neoplasm of cervix Pap Smear [facility] Comment on above: Postponed from 02/03 (Not Indicated) Start: 07-04-2023 Screening for malign ant neoplasm of breast Mammogram [facility] Start: 12-13-2022 Influenza vaccination Influenza Vacc ine [facility] Start: 2015 Administration of varicella zoster vaccine Zoster (Shingles) Vaccine (1 of 2) [facility] Start: 2010 Screening for malign ant neoplasm of colon Colon Cancer Screening 3 Year Cologuard [facility] Start: 1986 Screening for malign ant neoplasm of cervix Pap Smear [facility] Start: 02-04-1984 DTaP,Tdap and Td Vac cines (1 - Tdap) DTaP,Tdap and Td Vaccines (1 - Tdap) [facility] Start: 1965 Tobacco Counseling Tobacco Counselin g [facility] End: 04-30-2025 Basic metabolic 2000 panel - Serum or Plasma Basic Metabolic Panel Lab Routine Renal mass 1 Occurrences starting 04/30/2024 until 04/30/2025 [facility] [employer] [facility] Comment on above: 1 Occurrences starti ng 04/30/2024 until 04/30/2025 Colonoscopy flx dx w/collj spec when pfrmd COLONOSCOPY DIAGNOSTIC / SCREENING Colon cancer screening [facility] End: 05-13-2025 Comprehensive metabolic 2000 panel - Serum or Plasma Comprehensive metabolic panel Lab Routine Wellness examination 1 Occurrences starting 05/13/2024 until 05/13/2025 [facility] [employer] [facility] Comment on above: 1 Occurrences starti ng 05/13/2024 until 05/13/2025 Payers Date Payer Category Payer Unknown 2020 Managed Care Other (unspecified) [employer] [id number] 2020 Private Health Insurance [facility] [employer] [id number] 2020-Present [phone] [address] [address] [place] [address] [id number] 2020 Unknown [id number] 1965 Unknown [id number] 1965 Unknown [id number] 1965 Unknown [id number] 1965 Unknown [id number] 1965 Unknown [id number] [id number] 1965 Unknown [id number] 1965 Unknown [id number] [id number] 1965 Unknown [id number] [id number] 1959 Unknown [id number] Social History Date Type Detail Facility Start: 05-25-2020 End: 04-09-2024 Sex Assigned At [facility] Edwina [employer] Other Start: 08-29-2022 Tobacco smoking stat [facility] Smokes tobacco daily [facility] History of tobacco use Cigarette Smoker P [facility] Start: 05-25-2020 End: 08-29-2022 Cigarettes smoked current (pack per day) - Reported 0.5 [facility] Start: 08-29-2022 Tobacco use and exposure Smokeless tobacco non-user [facility] Start: 04-09-2024 End: 05-27-2024 Alcoholic beverage intake Current drinker of alcohol (finding) [facility] Adolescent depressio n screening assessment 0 [facility] Start: 1965 Sex assigned at Not on file P [facility] Start: 11-17-2014 Sex Female (finding) [facility] Clinical Notes 02-09-2021 to 05-13-2024 Shara Stapleton, BELL MAKER-INSPECTOR [employer]BING - 05/13/2024 1:00 PM ESTTelephone Encounter - Mariam Mccall CMA - 05/12/2024 10:22 AM ESTTelephone Encounter - Tasha Goodrich - 05/12/2024 10:22 AM EST Note Date & Type Note Facility 05-13-2024 History of Presen t illness Narrative Images from the original note were not included. [address] [place] [address] Patient: Anaya Serrano Date of : 1965 [...] of her breast screening this year at [facility]. Patient also believes she had shingles around [place] time as she had intense burning pain [...] APRN-CNP 05/13/24 1434 documented in this encounter [facility] 05-12-2024 Miscellaneous Notes Formattin g of [...] at TB. Staff please fax order to [facility] after telling pt results. COMES IN FOR APPT 05/13 documented in this encounter [facility] 05-12-2024 Telephone encount er Note ----- [...] at TB. Staff please fax order to [facility] after telling pt results. [facility] 05-12-2024 Telephone encount er Note COMES IN FOR APPT 05/13 [facility] 04-30-2024 History of Presen t illness Narrative [address] [place] [address] Patient: Anaya Serrano Date of : 1965 Encounter Date: 04/30/2024 History of Present Illness: The patient is a 59 y.o. female, an established patient, and is here for Chief Complaint Patient presents with Back Pain [facility] er . HPI Friday patient went to [facility] for increasingly worsening mid back pain for [...] her pain. Patient was given muscle relaxants, Palatine, Toradol in the ER and her back pain did improve. Incidentally on CT it was found that she had a renal mass that needs further investigation with a contrast MRI. Patient denies any significant weakness or falling or loss of bowel or bladder control with the pain in her back. 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 Problem List Items [...] BMI 20.52 kg/m Physical Exam Vitals reviewed. Die Turner present: here with ex-. Constitutional: Appearance: Normal [...] is experiencing in her leg. Stop the Palatine, Toradol and methocarbamol as given in the [...] 1st. Obtain MRI with contrast at the [facility] as well as kidney function prior. Patient is not ready to quit smoking despite knowing negative health consequences. Follow-up in 2 weeks to review results of MRI and recheck back pain. SHARA STAPLETON APRN-INSPECTOR PLUMBING NUSRAT Gardner 05/04/24 1003 documented in this encounter [facility] [employer] 04-26-2024 Miscellaneous Notes Formattin g of this note might be different from the original. Patient was in ER and they wanted her to Follow up with you candido. Where would you like me to fit her in at? 9[facility]iday documented in this encounter [facility] 04-26-2024 Telephone encount er Note Patient was in ER and they wanted her to Follow up with you candido. Where would you like me to fit her in at? [facility] 04-26-2024 Telephone encount er Note 9afriday [facility] 04-09-2024 History of Presen t illness Narrative [address] [place] [address] Patient: Anaya Serrano Date of : 1965 [...] came from work - she works at [employer]. Problem List Items Addressed This Visit Other [...] APRN-CNP 04/09/24 1409 documented in this encounter [facility] 03-24-2024 Miscellaneous Notes Formattin g of this note might be different from the original. She is overdue for appt- I'll give temp supply documented in this encounter [facility] 03-24-2024 Telephone encount er Note She is overdue for appt- I'll give temp supply [facility] 12-08-2023 Miscellaneous Notes Formattin g of this note might be different from the original. Prescription sent in. She is overdue for a wellness. Please set up documented in this encounter [facility] 12-08-2023 Telephone encount er Note Prescription sent in. She is overdue for a wellness. Please set up [facility] 05-21-2023 History of Presen t illness [...] Alexander 05/21/23 1335 documented in this encounter [facility]-05[facility]2021 Evaluation note Encounter Date Diagnosis Assessment [...] to only the absolute essential needed assessments. [employer] Other 10-29-2021 Evaluation note* Encounter Date Diagnosis [...] no improvement in 2 to 3 days. [employer] Other Evaluation note* Diagnosis Influenza A- Primary Influenza with other respiratory manifestations Fever, unspecified fever cause Smoking Tobacco use disorder [facility] Encounter for screening mammogram for malignant neoplasm of breast- Primary [facility] Diagnosis Encounter for screening mammogram for malignant neoplasm of breast- Primary documented in this encounter [facility] [employer] [facility]* Diagnosis Mid-back pain, acute- Primary Smoking Tobacco use disorder Renal mass Unspecified disorder of kidney and ureter [facility] [employer] [facility]* Diagnosis Abnormal MRI, kidney- Primary [facility] [employer] [facility]* Diagnosis Wellness examination- Primary Primary [...] Reported* Type Description Date Medical History HTN [employer] Other InstructionsNot on filedocumented in this encounter [...] section and content) DATE CREATED AUTHOR 10/07/2017 [facility] DATE CREATED AUTHOR AUTHOR'S ORGANIZ ATION 10/08/2017 [facility] DATE CREATED AUTHOR AUTHOR'S ORGANIZ ATION 04/26/2021 [facility] DATE CREATED AUTHOR AUTHOR'S ORGANIZ ATION 06/02/2021 [facility] Company DATE CREATED AUTHOR AUTHOR'S ORGANIZ ATION 07/15/2021 [facility] DATE CREATED AUTHOR AUTHOR'S ORGANIZ ATION 04/27/2024 [facility] DATE CREATED AUTHOR AUTHOR'S ORGANIZ ATION 05/15/2024 [facility] DATE CREATED AUTHOR AUTHOR'S ORGANIZ ATION 05/16/2024 [facility] REASON FOR VISIT (unrecogniz ed section and content) Reason Comments Sinus Problem Reason Comments Med Refill Reason Comments Back Pain TB er Reason Comments Results Reason Comments Chest Pain Er/ needs note Reason Onset Date Comments Med Refill 12/08/2023 Care Teams (unrecognized sec tion and content) Sanitation Superintendent Relationship Specialty Start Date End Date Jhon Rosas DO [address], [facility] [place] [address] PCP - General Family Medicine 11/08/19 Sanitation Superintendent Relationship Specialty Start Date End Date Jhon Rosas DO [address], [facility] [place] [address] PCP - General Family Medicine 11/08/19 Sanitation Superintendent Relationship Specialty Start Date End Date Jhon Rosas DO [address], [place] [address] PCP - General Family Medicine 11/08/19 Sanitation Superintendent Relationship Specialty Start Date End Date Jhon Rosas DO [address], [place] [address] PCP - General Family Medicine 11/08/19 Sanitation Superintendent Relationship Specialty Start Date End Date Jhon Rosas DO [address], [place] [address] PCP - General Family Medicine 11/08/19 Sanitation Superintendent Relationship Specialty Start Date End Date BrienninoskaJhon block DO [address], [place] [address] PCP - General Family Medicine 11/08/19 Sanitation Superintendent Relationship Specialty Start Date End Date Jhon Rosas DO [address], [place] [address] PCP - General Family Medicine 11/08/19 Sanitation Superintendent Relationship Specialty Start Date End Date Jhon Rosas DO [address], [place] [address] PCP - General Family Medicine 11/08/19 Sanitation Superintendent Relationship Specialty Start Date End Date Jhon Rosas DO [address] [place] [address] PCP - General Family Medicine 11/08/19 Sanitation Superintendent Relationship Specialty Start Date End Date BrienninoskaJhon block DO [address], [place] [address] PCP - [facility] Family Medicine 11/08/19 Sanitation Superintendent Relationship Specialty Start Date End Date Jhon Rosas DO [address], [place] [address] PCP - [facility] 11/08/19 Sanitation Superintendent Relationship Specialty Start Date End Date Jhon Rosas DO [address] [place] [address] PCP - [facility] Family [facility] 11/08/19 FOR RECORDS PERTAINING TO PATIENTS WHO [...] BE BASED ON THE PRIMARY CLINICAL RECORDS. [email or web address] [facility]. provides no warranty or guarantee of the accuracy or completeness of information in this document.
== END 2024-06-24 14:13 | disposition home or self-care (01) ==
LOC: RAD 14:13
PROVIDERS: PCP Family Medicine; Visit Provider Family Medicine
DX: R10.9 Unspecified abdominal pain (principal); R10.31 Right lower quadrant pain; M51.369 Other intervertebral disc degeneration, lumbar region without mention of lumbar back pain or lower extremity pain
CPT/HCPCS: 72100

== ENCOUNTER 2025-02-22 09:15 | Emergency (ER) | payer OTHER, SELFPAY ==
[2025-02-22] VITALS (15 sets, daily range): BP systolic 140–150; BP diastolic 76–87; PULSE 42–63; TEMP 37.1; O2SAT 93–100; BMI 20.1
--- NOTE | 2025-02-22 09:23 | ECG_ITS ---
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 Measurements Intervals [place] Rate: 58 P: 72 MA: 158 QRS: 53 QRSD: 82 T: 69 QT: 432 QTc: 428 Interpretive Statements 1100 Sinus rhythm 3114 Cannot rule out anterior myocardial infarction, age undetermined 9150 abnormal ECG Compared to ECG 04/23/2024 14:07:30 Myocardial infarct finding now present Left ventricular hypertrophy no longer present Electronically Signed On 02-22-2025 10:16:51 EST by GIOVANNY PRINCE M.D.
--- NOTE | 2025-02-22 09:52 | XR_ITS ---
The [address] [address] Patient Name: VEENA BUENO MRN: [id number] date: 1965 Sex: F Assigned Patient Location: ED.MAIN Current Patient Location: ED.MAIN Accession/Order Number: [id number] Exam Date: 02/22/2025 09:45 Report Date: 02/22/2025 10:16 At the request of: RUIZ PINTO DO Procedure: XR chest 2V PA AND LATERAL CHEST: CLINICAL HISTORY: Right sided pleuritic CP and cough. COMPARISON: 05/19/2023 Mild pectus deformity is seen. There is mild hyperinflation. Apical scarring is again noted bilaterally. There is also minimal scarring or atelectasis at the right base. There is no other consolidation, effusion or pneumothorax. The heart is top normal in size. The hilar and mediastinal silhouettes are within normal limits. There is no vascular congestion. The visualized bony thorax is intact. XR/XR chest 2V IMPRESSION: MINOR SCARRING AND ATELECTASIS NO ACUTE CARDIOPULMONARY ABNORMALITY. Impression dictated by: Sharon Nolan M.D. 02/22/2025 10:16 AM Dictation Location: [place] [address] Electronically authenticated by: [id number] Y Date: 02/22/2025 10:16
[2025-02-22 10:04] LABS: Hematocrit 42.0 % (36.0-48.0); Hemoglobin 13.4 g/dL (12.0-16.0); Immature Granulocytes Abs Auto 0.06 10^3/uL (0.00-0.03); Immature Granulocytes Pct Auto 0.4 % (0.0-0.5); Lymphocytes Absolute Auto 2.0 10^3/uL (1.2-3.8); Mean Corpuscular HGB Conc 31.9 g/dL (29.9-35.2); Mean Corpuscular Hemoglobin 27.5 pg (26.7-34.0); Mean Corpuscular Volume 86.1 fL (81.0-99.0); Platelet Count 334 10^3/uL (150-450); Red Blood Count 4.88 10^6/uL (4.20-5.40); White Blood Count 14.8 10^3/uL (4.0-11.0)
[2025-02-22] MEDS: LIDOCAINE 5% PATCH 1 PATCH TOPICAL (10:16)
[2025-02-22] MEDS: KETOROLAC TROMETHAMINE 30 MG/ML VIAL IVP (10:16)
[2025-02-22] MEDS: METHOCARBAMOL 500 MG TABLET PO (10:16)
--- OUTSIDE RECORDS SUMMARY | 2025-02-22 10:16 | XMS_ITS | Clinical Summary ---
Demographics Address [address] [place] [address] [address] [place] [address] Home Phone Work Phone Email Address Preferred Language ENG Marital Status Unknown Samaritan Affiliation Unknown Race White Ethnic Group Not or Lati no Author Organization [facility] Address [address] [place] [address] Care Team Providers Care Accounting Machine Servicer Name Role Phone Grabiel Patel Primary Care Provider Unavailabl e Allergies No known active allergies Medications MedicationSigDispense QuantityRefillsLast FilledStart DateEnd DateStatus BUDESONIDE/FORMOTEROL FUMARATE (SYMBICORT INHALATION) Indications:Left knee pain,Patellar tendinitisInhale as instructed.Active Active Problems ProblemNoted DateDiagnosed DateTEAR LATERAL MINISCUS [836.1]06/27/2010 PTS/CHONDROMALACIA PATELLAE [717.7]06/27/2010Patellar dejihligis55/02/2011 Social History Tobacco UseTypesPacks/DayYears UsedDateSmoking Tobacco: Never Assessed CommentsUnknownSex and Gender InformationValueDate RecordedSex Assigned at Not on fileLegal NrxAewjhb96/02/2012 8:53 AM ESTGender IdentityNot on fileSexual OrientationNot on file Plan of Treatment Health MaintenanceDue DateLast DoneCommentsAnxiety Itgawezjp25/23/1983Depression Twgtxtdxg42/23/1983HIV Prpgtumus16/23/1983Hepatitis C Jxibtmfps77/23/1983 DTaP,Tdap,Td Vaccine (1 - Tdap)02/04/1984Cervical Cancer Aazrvdkea23/23/1986 Mammogram Wszbhdzsz88/23/2005CT Ztyleewbxbig94/23/2010Cologuard (FIT-DNA) 02/03/20104731Fupzhpqlngc08/23/2010Colorectal Cancer Dvlyiatbg99/23/2010Diabetes Mlkktxrab44, 01/25/1999Fecal Occult Blood2010Lipid Mgxyrdgiq24/23/2082Tumhhhpjookdn52/23/2010Pneumococcal Vaccine: 50+ (1 of 1 - PCV)2015Shingrix Vaccine (1 of 2)2015Covid-19 Vaccine (1 - season)2024Influenza Vaccine (#1)2024RSV Vaccine (1 - 1-dose 75+ series)02/04/2040 Procedures Procedure NamePriorityDate/TimeAssociated DiagnosisCommentsBASIC METABOLIC PANEL 11/12/2001 12:32 PM EDT from Last 3 Months or Most Recently Relevant to Health Maintenance Results * BASIC METABOLIC PNL (11/12/2001 12:32 PM EDT)ComponentValueRef RangeTest MethodAnalysis TimePerformed AtPathologist YtvsrmvafPrwhxvg3658 - 110 mg/dL [facility] OYADJB684 - 25 mg/dLMARY [facility] LABCreatinine0.90.7 - 1.4 mg/dL[facility] WLDIkjqnx906283 - 148 mmol/[facility] Potassium4.43.5 - 5.0 mmol/[facility] BBWPqlffpuj88007 - 110 mmol/L [facility] VNKQQ72374 - 32 mmol/[facility] LABAnion Gap90 - 15 mmol/[facility] LABCalcium9.68.5 - 10.5 mg/dLMARY [facility]AN [facility] Specimen (Source)Anatomical Location / LateralityCollection Method / Volume Collection TimeReceived Time11/12/2001 12:32 PM EDT Narrative Authorizing ProviderResult TypeResult StatusFetbrittney Lara MDLABORATORY Final ResultPerforming OrganizationAddressCity/State/ZIP CodePhone Number [facility] [address] [place] [address] from Last 3 Months or Most Recently Relevant to Health Maintenance Insurance [address] [place] [address] * Guarantor: nAaya BUENO TypeRelation to PatientDate of BirthPhone Billing AddressSelf [id number] [address] [place] [address] [address] [place] [address] Care Teams Team MemberRelationshipSpecialtyStart DateEnd Date Grabiel Patel PCP - GeneralInternal Medicine05/31/10
--- OUTSIDE RECORDS SUMMARY | 2025-02-22 10:16 | XMS_ITS | Clinical Summary ---
Author Organization [facility] Address [address] [place] [address] Care Team Providers Care Grid Molder Name Role Phone Unavailable Primary Care Provider Unavailabl e Social History Tobacco UseTypesPacks/DayYears UsedDateSmoking Tobacco: Never Assessed CommentsUnknownSex and Gender InformationValueDate RecordedSex Assigned at Not on fileLegal KjqPxovbb50/15/2023 11:22 PM EDTGender IdentityNot on file Sexual OrientationNot on file Plan of Treatment Not on file
--- OUTSIDE RECORDS SUMMARY | 2025-02-22 10:16 | XMS_ITS | Patient Health Record ---
Author Organization [facility] [place] Address [address] [place] [address] Care Team Providers Care Nuclear Operations Specialist Name Role Phone Manny Huddleston MD Primary Care Provider Unavailab le Reason For Referral No Information Problems Problem Type SNOMED Code ICD Code Onset Dates Problem Status W/U Status Risk Notes Problem Chest pain (51065433) Chest pain (R07.9) Activeconfirmed Plan Of Treatment No Information Insurance Providers Payer Name Payer Address Payer Phone Subscriber Number Group Number Insured Name Patient Relationship to Insured Coverage Start Date Coverage End Date [employer] [address] [address] [place] [address] [id number] Anaya Serrano Self - patient is the insured
--- OUTSIDE RECORDS SUMMARY | 2025-02-22 10:16 | XMS_ITS | Clinical Summary ---
Author Organization [facility] Address [address] [place] [address] Phone Care Team Providers Care Torch Shearer Name Role Phone Jasmin Zayas MD Primary Care Provider [phone] Social History Tobacco UseTypesPacks/DayYears UsedDateSmoking Tobacco: Never Assessed CommentsUnknownSex and Gender InformationValueDate RecordedSex Assigned at Not on fileLegal BsfZpdjny36/25/2022 6:24 PM ESTGender IdentityNot on fileSexual OrientationNot on file Plan of Treatment Not on file Care Teams Team MemberRelationshipSpecialtyStart [place] [address] Department of Pediatrics-Hematology and Oncology [place] [id number] PCP - General06/27/12
--- OUTSIDE RECORDS SUMMARY | 2025-02-22 10:16 | XMS_ITS | Clinical Summary ---
Author Organization [employer] Address [id number] [address] [place] [address] Care Team Providers Care Telephoner Name Role Phone Jhon Rosas Primary Care Provider Allergies No known active allergies Medications MedicationSigDispense QuantityRefillsLast FilledStart DateEnd DateStatus ondansetron ODT (ZOFRAN ODT) 4 mg disintegrating tablet Dissolve 1 tablet (4 mg total) on tongue every 8 (eight) hours as needed for nausea or vomiting. 20 tablet 4Active ibuprofen (MOTRIN) 800 mg tablet TAKE 1 TABLET BY MOUTH EVERY 8 HOURS NEEDED FOR PAIN 30 tablet 5Active baclofen (LIORESAL) 20 mg tablet Indications:Right flank discomfort,Flank pain,Mid-back pain, acuteTake 1 tablet (20 mg total) by mouth 3 (three) times a day. 90 tablet 5Active dexAMETHasone (DECADRON) 1 mg tablet Take 1 tablet (1 mg total) by mouth nightly. 1 tablet 5Active gabapentin (NEURONTIN) 100 mg capsule Indications:Post herpetic neuralgiaTake 1 capsule (100 mg total) by mouth 3 (three) times a day. 90 capsule 5Active metoprolol succinate XL (TOPROL XL) 50 mg 24 hr tablet TAKE 1 TABLET BY MOUTH IN THE MORNING 90 tablet 5Active atorvastatin (LIPITOR) 10 mg tablet TAKE 1 TABLET BY MOUTH IN THE MORNING 90 tablet 5Active Active Problems ProblemNoted DateDiagnosed DatePolyp of sigmoid colon06/30/2024Right groin pain 5Colon cancer adtajmths37/13/4332Qpjobbf00/19/2023hondromalacia of wslfjnd4106/27/2010Tear of lateral cartilage or meniscus of knee, current 06/27/2010Patellar zqoyuujvbn92/02/2011Hypertension Encounters DateTypeDepartmentCare KdbkRcjedzorkhd93/10/2025Telephone [facility] [address] [place] [address] Gisela Garibay, [facility] 01/14/2025Telephone [facility] [address] [place] [address] Meena Miranda 01/14/2025Telephone [facility] [address] [place] [address] Willard Robles MD 01/12/2025Telephone [facility] [address] [place] [address] Marisol Nj, [facility] 12/01/2024Refill [facility] - Family Medicine [address] [place] [phone] Maria Luisa Irby, GUITAR MAKER-CERTIFIED NEURODIAGNOSTIC TECHNOLOGIST from Last 3 Months Family History Medical HistoryRelationNameCommentsAcute myelogenous leukemiaDaughter HypertensionFatherHeart attackMotherHepatitisMotherHypertensionMotherBreast cancerNeg HxRelationNameStatusCommentsDaughterDeceasedFatherDeceasedMother Social History Tobacco UseTypesPacks/DayYears UsedDateSmoking Tobacco: Every DayCigarettes0.538 Smokeless Tobacco: Never Tobacco Cessation:Ready to Q uit: Not Asked; Counseling Given: Not Answered Alcohol UseStandard Drinks/WeekCommentsYes0 (1 standard drink = 0.6 oz pure alcohol)A couple of beers a monthPHQ-2AnswerDate RecordedTotal Hejfd324 ChildcareAnswerDate JpjoabcrVpcjermouJslmohx18/12/2019EmploymentAnswerDate RecordedDo you need help finding a local career center and/or a training program?No06/28/2024Hunger ScreeningAnswerDate RecordedWithin the past 12 months we worried whether our food would run out before we got money to buy more.Never True07/22/2024Within the past 12 months the food we bought just didn't last and we didn't have money to get more.Never True07/22/2024Purpose - LifeAnswerDate RecordedPurpose and direction in efpuHfoqsuc16/11/2021CommentsNoSex and Gender InformationValueDate RecordedSex Assigned at CgmntZippob61/28/2025 9:09 AM EDTLegal MfeElgflr29/06/2015 11:48 AM EDTGender ZafbksztSdccsi58/28/2025 9:09 AM EDTSexual OrientationNot on file Last Filed Vital Signs Vital SignReadingTime TakenCommentsBlood Zhwcavfb164/8704 12:49 PM EDT Iexve0503 12:49 PM KKOAfgbfitqzzy55.2 ??C (97.2 ??F)06/30/2024 8:25 AM EDTRespiratory Fhuf360906/30/2024 10:17 AM EDTOxygen Idzhjqhfci04%06/30/2024 10:17 AM EDTInhaled Oxygen Concentration--Cjcyso13.3 kg (111 lb)02/17/2025 7:54 AM EST Zzgmcz557.5 cm (5' 2 )07/22/2024 12:49 PM EDTBody Mass Index20.304 12:49 PM EDT Plan of Treatment DateTypeDepartmentCare Team (Latest Contact Info)Booajcngqaj09/18/2025 3:30 PM ESTOffice Visit [facility] [address] [place] [phone] Rossy Lima PA [address] [place] [address] 03/21/2025 4:45 PM ESTAppointment [facility] [address] [place] [address] Health MaintenanceDue DateLast DoneCommentsTobacco Oqoicymdzv1965DTaP,Tdap and Td Vaccines (1 - Tdap)02/04/1984Colon Cancer Screening 3 Year Cologuard 2010Zoster (Shingles) Vaccine (1 of 2)2015Influenza Vaccine 12/13/20246200Aemogpxvm31/08/202601/11/2024, 07/03/2022, 06/17/2022epression Odalbbbbf63/Tobacco Mrysgdtgl83/dult BMI Zohdfahip59RSV ( or age 60+ yrs) (1 - 1-dose 75+ series)02/04/2040Pap SmearDiscontinued Medical Devices Not on file Procedures Procedure NamePriorityDate/TimeAssociated DiagnosisCommentsMAMM SCREENING BILATERAL W JCBVjliwsz31/08/2025 1:22 PM EST Encounter for screening mammogram for malignant neoplasm of breast from Last 3 Months or Most Recently Relevant to Health Maintenance Results * Mammography screening bilateral with CAD (04/21/2024 1:22 PM EST)Anatomical RegionLateralityModalityBreastBilateralMammographySpecimen (Source)Anatomical Location / LateralityCollection Method / VolumeCollection TimeReceived Time 04/22/2024 8:20 AM EST Narrative 04/22/2024 8:23 AM EST ANAYA BUENO 1965 [id number] EXAM: MAMM SCREENING BILATERAL W CAD, 04/21/2024 [...] malignancy. BI-RADS: BI-RADS 1 - Negative RECOMMENDATION: ??Recommend MBI as a supplemental screening combined with annual mammography.. Due to the density and/or complexity of breast tissue on mammography, Molecular Breast Imaging is recommended as a supplement to annual screening mammography. MBI can be used to help detect mammographically occult cancers in dense breasts. ?? RISK ASSESSMENT: TC Lifetime risk: 4.7%. The patient's reported personal and family medical history was used calculate their Tyrer-Cuzick lifetime risk of malignancy. Scores less than 20% are not considered high risk per ACR guidelines and patient should continue with the above recommendation. Finalized by Jesse Robertson MD on 04/22/2024 8:23 AM 1 c [facility] [place] Accredited Performing Facility: [facility] - Mammography/DEXA Imaging [address] [place] [id number] Procedure Note Jesse Robertson MD - 04/22/2024 ANAYA BEDOYA MYLES 1965 [id number] EXAM: MAMM SCREENING BILATERAL W CAD, 04/21/2024 12:59 PM CLINICAL INDICATIONS: Screening, Encounter for screening mammogram formalignant neoplasm of breast COMPARISON: 06/17/2022 TECHNIQUE: Bilateral digital tomosynthesis MLO and CC views of the breastswere obtained, with creation of synthetic 2D views. Computer aideddetection was utilized. FINDINGS: The breasts are heterogeneously dense, which may obscure small masses. Please note examination slightly compromised secondary to difficultypositioning There are no suspicious masses, calcifications, or areas of architectural distortion. IMPRESSION: Please note examination slightly compromised secondary to difficultypositioning No mammographic evidence of malignancy. BI-RADS: BI-RADS 1 - Negative RECOMMENDATION: Recommend MBI as a supplemental screening combined withannual mammography.. Due to the density and/or complexity of breast tissueon mammography, Molecular Breast Imaging is recommended as a supplement toannual screening mammography. MBI can be used to help detectmammographically occult cancers in dense breasts. RISK ASSESSMENT: TC Lifetime risk: 4.7%. The patient's reported personal and family medical history was usedcalculate their [facility] lifetime risk of malignancy. Scores less than20% are not considered high risk per ACR guidelines and patient shouldcontinue with the above recommendation. Finalized by Jesse Robertson MD on 04/22/2024 8:23 AM 1 c [facility] FDA Accredited Performing Facility: [facility] - Mammography/DEXA Imaging [address] [facility] [id number] Authorizing ProviderResult TypeResult StatusBrmarlon Irby GUITAR MAKER-[facility] MAMMOGRAPHY ORDERABLESFinal Result from Last 3 Months or Most Recently Relevant to Health Maintenance Insurance [address] [place] [address] Care Teams Team MemberRelationshipSpecialtyStart DateEnd Date Jhon Rosas DO [address] [facility], [place] [address] PCP - GeneralFamily Medicine11/08/19
[2025-02-22 10:26] LABS: Anion Gap 10.7; Blood Urea Nitrogen 8.0 mg/dL (7.0-18.0); Calcium 9.3 mg/dL (8.5-10.1); Carbon Dioxide 27.2 mmol/L (21.0-32.0); Chloride 102 mmol/L (98-107); Estimated GFR (African America >60 (>=60 mL/min/1.73m^2); Estimated GFR (Non-African Ame >60 (>=60 mL/min/1.73m^2); Glucose 93 mg/dL (74-106); Potassium 3.9 mmol/L (3.5-5.1); Sodium 136 mmol/L (136-145)
--- NOTE | 2025-02-22 15:44 | ED.GENADUL1 ---
HPI HPI - General Adult General Chief complaint: Chest Pain Stated complaint: CHEST PAIN Time Seen by Provider: 02/22/25 09:22 Source: patient Mode of arrival: ambulance History of Present Illness HPI narrative: Patient is a 60-year-old female presenting to the emergency department from work for concerns of right-sided rib pain. Patient states that the pain has been ongoing for the last 6 days intermittently. She states is located on the right side of her chest/ribs. She states that is worse with a deep breath. She does have a history of smoking and hypertension. She also notes a history of partial lung removal from a pneumothorax many years ago. She denies history of [place] or coronary artery disease. She denies history of DVT/PE, leg swelling, or current chest pain/shortness of breath. She denies any falls or injuries. Related Data Home Medications ?Medication ?Instructions ?Recorded ?Confirmed metoprolol succinate 50 mg 50 mg PO DAILY 05/19/23 02/22/25 tablet,extended release 24 hr atorvastatin 10 mg tablet 10 mg PO DAILY 02/22/25 02/22/25 Allergies Allergy/AdvReac Type Severity Reaction Status Date / Time No Known Drug Allergies Allergy Verified 02/22/25 09:27 Opioid HPI Opioid Management Most Recent Opioid Data: Last Pain Scale 10 Today, 10:16 Last MAR Pain Assessment Today, 10:16 Review of Systems ROS Status of ROS 10 or more systems reviewed and unremarkable except as noted in history and below PFSH PFS Social History Smoking status: Heavy tobacco smoker Little interest or pleasure in doing things: not at all Feeling down, depressed, or hopeless: not at all Exam Narrative Exam Narrative: CONSTITUTIONAL: Well-appearing, answering questions and following commands appropriately SKIN: Was warm and dry, no rashes or vesicles on the chest/flank/back. EYES: Sclerae white. EARS, NOSE, THROAT: Moist oral mucosa. RESPIRATORY: Clear to auscultation bilaterally, no wheezes, crackles, or stridor, no use of accessory muscles CARDIOVASCULAR: Normal rate and regular rhythm. There is no S3, S4, murmur, rub. GASTROINTESTINAL: Abdomen is nondistended. MUSCULOSKELETAL: There is reproducible tenderness to palpation throughout the right side of her ribs and chest wall. No overlying skin changes such as ecchymosis or abrasions. NEUROLOGIC: Patient is awake and alert. Facies were symmetrical. Constitutional Vital Signs, click to edit/add: Last Vital Signs Temp 98.8 F 02/22/25 09:28 Pulse 42 L 02/22/25 11:01 Resp 23 H 02/22/25 11:01 BP 147/76 H 02/22/25 11:01 Pulse Ox 97 02/22/25 11:01 O2 Del Method Room Air 02/22/25 09:28 Course Vital Signs Vital signs: Vital Signs Pulse Rate 55 L 02/22/25 09:25 Respiratory Rate 15 02/22/25 09:25 Temperature 98.8 F 02/22/25 09:28 Pulse Rate 42 L 02/22/25 11:01 Respiratory Rate 23 H 02/22/25 11:01 Blood Pressure 147/76 H 02/22/25 11:01 Pulse Oximetry 97 02/22/25 11:01 Oxygen Delivery Method Room Air 02/22/25 09:28 Medical Decision Making [facility] Narrative Medical decision making narrative: Patient is a 60-year-old female presenting to the emergency room with a 6-day history of intermittent right-sided chest/rib pain. Her vital signs arrival are within normal limits. She is afebrile and hemodynamically stable. Examination as noted above, however is notable for reproducible tenderness to palpation to the right side of her chest/ribs. My clinical impression is that the patient's symptoms are secondary to musculoskeletal pain, muscle spasm, or other benign etiologies. Chest x-ray was obtained to rule out underlying pneumothorax, rib fracture, pneumonia. IV was established and laboratory studies were obtained to rule out possible ACS, arrhythmia, symptomatic anemia, or other electrolyte/metabolic derangement. She was treated symptomatically with Lidoderm patch, Robaxin, and IV ketorolac. Chest x-ray independently reviewed/interpreted by myself demonstrated no acute cardiopulmonary process. 12 Lead EKG: Normal sinus rhythm at a rate of 58. Normal axis. No ST segment elevations. QRS, OR, and QTc interval within normal limits. Final impression: normal sinus rhythm without evidence of acute myocardial ischemia Laboratory studies were unremarkable. No significant electrolyte or metabolic derangement. No evidence of acute kidney injury. No significant anemia, leukocytosis, or thrombocytopenia. Troponin nonelevated. On reevaluation, patient's symptoms have improved since her ED arrival. I do believe the patient is stable for discharge. They were instructed to follow up with her PCP as needed. Return precautions were given including any new or worsening symptoms. Patient understands and agrees to the plan. FINAL IMPRESSION: #Acute right-sided musculoskeletal chest pain DISPOSITION: Discharged home CONDITION: Good Lab Data Lab results reviewed: Yes I reviewed the patient's lab results Labs: Lab Results 02/22/25 Range/Units 09:37 WBC 14.8 H (4.0-11.0) 10^3/uL RBC 4.88 (4.20-5.40) 10^6/uL Hgb 13.4 (12.0-16.0) g/dL Hct 42.0 (36.0-48.0) % MCV 86.1 (81.0-99.0) fL MCH 27.5 (26.7-34.0) pg MCHC 31.9 (29.9-35.2) g/dL RDW 12.5 (11.0-15.0) % Plt Count 334 (150-450) 10^3/uL MPV 10.7 (9.5-13.5) fL Neut % (Auto) 79.7 H (43.0-75.0) % Lymph % (Auto) 13.7 L (20.5-60.0) % Shelby % (Auto) 5.1 (1.7-12.0) % Eos % (Auto) 0.6 L (0.9-7.0) % Baso % (Auto) 0.5 (0.2-2.0) % Neut # (Auto) 11.8 H (1.4-6.5) 10^3/uL Lymph # (Auto) 2.0 (1.2-3.8) 10^3/uL Shelby # (Auto) 0.8 (0.3-0.8) 10^3/uL Eos # (Auto) 0.1 (0.0-0.7) 10^3/uL Baso # (Auto) 0.1 (0.0-0.1) 10^3/uL Abs Immat Gran (auto) 0.06 H (0.00-0.03) 10^3/uL Imm/Tot Granulo (auto) 0.4 (0.0-0.5) % Sodium 136 (136-145) mmol/L Potassium 3.9 (3.5-5.1) mmol/L Chloride 102 (98-107) mmol/L Carbon Dioxide 27.2 (21.0-32.0) mmol/L Anion Gap 10.7 BUN 8.0 (7.0-18.0) mg/dL Creatinine 0.75 (0.55-1.02) mg/dL Est GFR ( Amer) >60 (>=60 mL/min/1.73m^2) Est GFR (Non-Af Amer) >60 (>=60 mL/min/1.73m^2) BUN/Creatinine Ratio 10.7 Glucose 93 (74-106) mg/dL Calcium 9.3 (8.5-10.1) mg/dL Troponin I High Sens 19.1 (4.0-51.3) pg/mL Imaging Data Chest x-ray: Attestation: I personally reviewed and interpreted this imaging study as follows: Radiologist's impression: ITS Impressions Chest X-Ray 02/22/25 09:52 IMPRESSION: MINOR SCARRING AND ATELECTASIS NO ACUTE CARDIOPULMONARY ABNORMALITY. Impression dictated by: Sharon Nolan M.D. 02/22/2025 10:16 AM Dictation Location: [place] [id number] Electronically authenticated by: [id number] Y Date: 02/22/2025 10:16 ECG Data Attestation: I personally reviewed and interpreted this ECG as follows: Discharge Plan Discharge Chief Complaint: Chest Pain Clinical Impression: Chest wall pain Patient Disposition: Home, Self-Care Time of Disposition Decision: 10:37 Condition: Good Mode of Transportation: Private Vehicle Prescriptions / Home Meds: No Action atorvastatin 10 mg tablet 10 mg PO DAILY metoprolol succinate 50 mg tablet extended release 24 hr 50 mg PO DAILY Print Language: Bel[place]ian Instructions: Chest Wall Pain (ED) Referrals: NAVDEEP GERARD [Primary Care Provider, Family Practice] - 1 week Discharge Date/Time: 02/22/25 11:11
== END 2025-02-22 11:11 | disposition home or self-care (01) ==
PROVIDERS: Emergency Provider Student in an Organized Health Care Education/Training Program; PCP Family Medicine
DX: R07.89 Other chest pain (principal); I10 Essential (primary) hypertension; F17.200 Nicotine dependence, unspecified, uncomplicated; Z90.2 Acquired absence of lung [part of]
CPT/HCPCS: 36415; 71046; 80048; 84484; 85025; 93005; 96374; 99285; J1885